=== PATIENT | female | born 1980 | race Caucasian/White ===

== ENCOUNTER 2020-09-02 18:01 | Inpatient (IN) | payer OTHER, SELFPAY ==
[2020-09-02 18:25] VITALS: BP 121/72; PULSE 114; TEMP 36.1
[2020-09-02] MEDS: Lurasidone HCl 80 MG TABLET PO (22:11)
[2020-09-02] MEDS: traZODone HCL 100 MG TABLET 200 MG PO (22:11)
--- NOTE | 2020-09-03 00:43 | PC.ADMIT ---
A 35 year old single female patient was [facility] 1820 following referral from [facility] and [facility] ED. Pt has no previous admissions here but reports numerous hospitalizations elsewhere. Pt lives in a [place] and it was reported pt has not been taking scheduled medications for several weeks and had been decompensating in the [place] since then presenting as acutely manic and psychotic in the ED assessment.. In [facility] ED pt expressed Branden Martinez has two aspects, on of an enemy and the other as a creator . Pt also asserted she is God's . Pt has reported hearing AH of the voice of Branden Martinez and spoke about incarnation and reincarnation. Pt spoke about spending time in her manic state on Facebook and spending lots of time writing and acquiring lots of followers including a number of celebrities. Pt rated anxiety 6/10, denied depression. Pt denies SI/HI and says can seek out staff. Pt reports distant history of self harm in form of cutting. Pt denied alcohol use and reported also very infrequent use of marijuana. JUAN and BAL were not done at [facility]. Pt was calm and cooperative during admission assessment. Pt does feel she needs to be on medications, I need one antipsychotic, one mood stabalizer, one med for anxiety plus my medical meds . Pt said she feels she is on too many meds and it makes her feel slowed down mentally. Medical issues include high blood pressure and high cholesterol. Pt was placed on 5 minute safety checks upon arrival but now is on 15 minute checks. Nurse to Nurse done, initial treatment plan done and admission orders obtained. Pt is resting in room at this time.
[2020-09-03] MEDS: Lithium Carbonate ER 450 MG TABLET.ER PO ×2 (06:16→14:18)
--- NOTE | 2020-09-03 07:07 | PM.EVENT ---
Event Note Date of Service: 09/02/20 Event Note: Attempted to see pt for H&P and pt was sleeping
[2020-09-03 09:23] VITALS: BP 121/72
[2020-09-03] MEDS: amLODIPine Besylate 10 MG TABLET PO (09:23)
[2020-09-03] MEDS: FLUoxetine HCl Oral Solution 20 MG/5 ML SOLUTION 10 MG PO (09:24)
[2020-09-03] MEDS: Nicotine Polacrilex 2 MG GUM 4 MG BUCCAL ×2 (11:55→18:48)
[2020-09-03 16:50] VITALS: BP 125/72; PULSE 97; TEMP 36.4
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
[2020-09-03] MEDS: metFORMIN HCl 500 MG TABLET PO (18:48)
[2020-09-03] MEDS: Melatonin 3 MG TABLET 9 MG PO (21:17)
[2020-09-03] MEDS: Ziprasidone 20 MG CAPSULE PO (21:18)
--- NOTE | 2020-09-03 22:25 | CONS_ITS ---
DATE OF SERVICE: 09/03/2020 REASON FOR CONSULTATION: Medical management for underlying hypertension and hyperlipidemia. HISTORY OF PRESENTING ILLNESS: This is a 40-year-old female patient, transferred from [facility] for inpatient psychiatric hospitalization due to auditory hallucination. The patient was found to be psychotic with acute paranoia and transferred to [facility]. The patient at the present time is resting comfortably, complaining of constipation despite using a high-fiber diet. She smokes 1 to 2 pack of cigarettes a day and requesting for Nicorette gum. Other than that, patient denies any acute symptoms of chest pain, shortness of breath, cough or sputum production. She denies any recent fever, chills. She denies any headache, lightheadedness, or dizziness. PAST MEDICAL HISTORY: Significant for hypertension and hyperlipidemia. SOCIAL HISTORY: The patient is currently on SSI. Previously, she worked in [email or web address] from 1999 to 2005. She smokes tobacco 1 to 2 packs a day. Denies alcohol use. PAST SURGICAL HISTORY: Status post removal of benign cyst from hand. FAMILY HISTORY: The patient is not aware and feels her family is deranged and she does not know much about their medical health. ALLERGIES: SHE HAS NO KNOWN DRUG ALLERGIES. MEDICATIONS ON ADMISSION: Tylenol 650 q.6 hours as needed, amlodipine 10 mg daily, bupropion 300 daily, carbamazepine 200 daily, fluoxetine 10 mg daily, Haldol 5 mg daily, hydroxyzine 25 mg at bedtime as needed and 50 mg daily p.r.n., ibuprofen 400 mg q.6 hour, lithium 450 mg b.i.d., magnesium p.o. daily, Nicorette Gum 4 mg q.2 hours, trazodone 200 mg at bedtime and lurasidone 80 mg by mouth at bedtime. 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 CVS: No chest pain. RESPIRATORY: No cough or sputum production. GI: Constipation. MUSCULOSKELETAL: Complaining of generalized stiffness and neck discomfort. PHYSICAL EXAMINATION: GENERAL: The patient is resting comfortably, does not appear to be in acute distress. VITAL SIGNS: BP 121/72. She is afebrile. Pulse is 100, respiratory rate is 14. HEENT: Pupils equal, round, and reactive to light and accommodation. NECK: Supple. No JVD. LUNGS: Clear to auscultation. HEART: Regular. ABDOMEN: Obese, soft, nontender. EXTREMITIES: Without edema. MUSCULOSKELETAL: No joint deformities. ASSESSMENT AND PLAN: This is a 40-year-old female patient, admitted to [facility] due to psychotic features and acute paranoia with past medical history of hypertension and hyperlipidemia. 1. Hypertension. The patient's blood pressure currently stable. We will recommend to continue amlodipine and follow blood pressure closely. 2. History of hyperlipidemia, not on statins. Recommended low fat diet. 3. Tobacco use disorder. The patient will be continued on Nicorette gum. Counseling has been done. 4. History of constipation. Advised to continue high-fiber diet. The patient has magnesium ordered p.r.n. We will add daily MiraLAX. 5. Generalized stiffness mostly due to sedentary lifestyle. Advised to do stretching exercises, p.r.n. Tylenol, hot showers. Thank you for allowing us to participate in the care of this patient. MD Dr. Fabricio Israel/PRATIK / [id number] MTDD
[2020-09-04 06:45] VITALS: BP 111/72; PULSE 65; RESP 18; TEMP 36.1; O2SAT 96
[2020-09-04 08:45] VITALS: BP 129/77; PULSE 73; RESP 16; TEMP 35.9; O2SAT 97
[2020-09-04] MEDS: Lithium Carbonate ER 450 MG TABLET.ER PO ×2 (08:58→13:57)
[2020-09-04 08:59] VITALS: BP 149/77; PULSE 73
[2020-09-04] MEDS: lisinopriL 2.5 MG TABLET PO (08:59)
[2020-09-04] MEDS: metFORMIN HCl 500 MG TABLET PO (08:59)
[2020-09-04] MEDS: Ziprasidone 20 MG CAPSULE PO (08:59)
--- NOTE | 2020-09-04 10:03 | HO.PSYCHPN ---
Subjective Subjective Date of Service: 09/04/20 Reason For Visit: Bi Polar Interim History: pt lying on bed upon approach; she remains so with eyes closed. Pt says she's tired; her speech is not pressured but she says i'm having thoughts and thoughts in my head and i want to scream and cry. Audit Mgr inquired and pt said thoughts consist of bad thoughts of things that happened to me, to my family, to the world... For help with this She agrees to increase in Ziprasidone to 40mg qhs and to bump up lithium to her home dose of 600mg BiD, but says she does not want too much medication because it will make her dull and hard to write and be creative. Pt says she plans to discharge early next week. Medication Compliance: Yes Side effects from medications: No Attending Groups: No Mental Status Exam Mental Status Exam Narrative: Pt is alert and oriented; behavior is cooperative, lying in bed with eyes closed; not in distress; dressed in casual attire with adequate hygiene; mood is described as tired and affect congruent; no eye contact; Speech is not pressured; normal volume and prosody; no psychomotor agitation present; thought process goal oriented; Thought content is on various things that have happened to her; no overt delusional content, paranoid ideations or grandiosity currently expressed; denies any SI/HI. AH present; Patients insight and judgment are impaired. Diagnostics Vital Signs (24Hr): Vital Signs - 24 hr 09/03/20 16:50 09/04/20 06:45 09/04/20 08:59 Temperature 97.6 F 96.9 F Pulse Rate 97 65 73 Respiratory Rate 18 Blood Pressure 125/72 111/72 149/77 H Pulse Oximetry 96 Labs Results: 09/05/20 08:57 09/05/20 08:57 Medications Medications Current Medications Generic Name Dose Route Start Last Admin Trade Name Freq PRN Reason Stop Dose Admin Acetaminophen 650 mg 09/02/20 18:16 Acetaminophen 325 Mg Tablet PO Q6H PRN Headache/Pain Mild Scale (1-3) Al Hydroxide/Mg Hydroxide 30 ml 09/02/20 18:16 Magnesium Hydrox/Alum Hydrox 30 Ml Oral.Susp PO Q6H PRN Heartburn/Nausea Clonazepam 1 mg 09/03/20 18:22 Clonazepam 1 Mg Tablet PO DAILY PRN Anxiety Lisinopril 2.5 mg 09/04/20 09:00 09/04/20 08:59 Lisinopril 2.5 Mg Tablet PO 2.5 mg DAILY CLAUDIA Administration Protocol [place] Carbonate 450 mg 09/03/20 06:00 09/04/20 08:58 [place] Carbonate Er 450 Mg Tablet.Er PO 450 mg 0600,1400 CLAUDIA Administration Magnesium Hydroxide 30 ml 09/02/20 18:16 Milk Of Magnesia 30 Ml Oral.Susp PO DAILY PRN Constipation Melatonin 9 mg 09/03/20 21:00 09/03/20 21:17 Melatonin 3 Mg Tablet PO 9 mg BEDTIME CLAUDIA Administration Metformin HCl 500 mg 09/03/20 18:30 09/04/20 08:59 Metformin Hcl 500 Mg Tablet PO 500 mg DAILY CLAUDIA Administration Nicotine Polacrilex 4 mg 09/03/20 10:49 09/03/20 18:48 Nicotine Polacrilex 2 Mg Gum BUCCAL 4 mg Q2H PRN Administration Nicotine Cravings Ziprasidone 20 mg 09/03/20 21:00 09/04/20 08:59 Ziprasidone 20 Mg Capsule PO 20 mg BID CLAUDIA Administration Allergies Allergies Allergy/AdvReac Type Severity Reaction Status Date / Time No Known Allergies Allergy Unverified 12/19/19 17:53 [No Known Allergies*] Assessment & Plan (1) Schizoaffective disorder, bipolar type: Status: Acute Code(s): F25.0 - Schizoaffective disorder, bipolar type (2) Chronic post-traumatic stress disorder (PTSD): Status: Acute Code(s): F43.12 - Post-traumatic stress disorder, chronic Assessment and Plan: Impression: Patient is a 40-year-old female with history of schizoaffective disorder, PTSD presents for dysregulated behaviors having stopped her medication. Patient is pleasant and friendly, but manic, with pressured speech, rambling about various things, some reference to spiritual things. Patient is willing to restart her ziprasidone and lithium, but not Depakote. pt agrees to increase in both Ziprasidone and lithium to stop racing thoughts Plan: The patient on CV, Q 15 minutes checks for safety Increase ziprasidone to 40mg qhs (keep AM dose at 20 mg b.i.d) Tiitrate Tol[place] to 600 mg b.i.d. which is her home dose, Will hold off restarting Depakote as patient currently refuses Patient also refuses Robbin Will order labs including hemoglobin A1c, lithium level, bun/cr hospitalist agreed Lisiniprol appropriate over amlodipine Patient educated on: diagnosis and medication risk/benefits Informed Consent: understands Greater than 50% of the session was spent on counseling and/or coordination of care Reason for contiued inpatient stay Substantial Risk for: rapid decompensation
[2020-09-04] MEDS: clonazePAM 1 MG TABLET PO (11:45)
[2020-09-04] MEDS: Nicotine Polacrilex 2 MG GUM 4 MG BUCCAL (13:57)
[2020-09-04 17:18] VITALS: BP 127/65; PULSE 86; RESP 18; TEMP 36.4; O2SAT 94
[2020-09-04] MEDS: Ziprasidone 40 MG CAPSULE PO (21:09)
[2020-09-04] MEDS: Melatonin 3 MG TABLET 9 MG PO (21:11)
[2020-09-05 08:59] VITALS: BP 132/72; PULSE 103
[2020-09-05] MEDS: Ziprasidone 20 MG CAPSULE PO (08:59)
[2020-09-05] MEDS: Lithium Carbonate ER 450 MG TABLET.ER PO (08:59)
[2020-09-05] MEDS: lisinopriL 2.5 MG TABLET PO (08:59)
[2020-09-05] MEDS: metFORMIN HCl 500 MG TABLET PO (08:59)
[2020-09-05 09:07] LABS: MANUAL DIFF FLAG NO
[2020-09-05 09:10] LABS: Basophils Absolute Auto 0.1 X10*3/uL (0.0-0.2); Basophils Percent Auto 0.8 % (0-2); Eosinophils Absolute Auto 0.6 X10*3/uL (0.0-0.4); Eosinophils Percent Auto 6.7 % (0-4); Hematocrit 45.7 % (37-47); Imm Gran Abs Auto 0.04 X10*3/uL (0.00-0.03); Imm Gran Pct Auto 0.5 % (0.0-0.4); Lymphocytes Absolute Auto 2.3 X10*3/uL (1.2-4.9); Lymphocytes Percent Auto 26.8 % (20-40); Mean Corpuscular HGB Conc 32.8 g/dl (31.0-35.0); Mean Corpuscular Hemoglobin 28.6 pg (27.0-33.0); Mean Corpuscular Volume 87.2 fL (80-98); Monocytes Absolute Auto 0.5 X10*3/uL (0.1-1.2); Monocytes Percent Auto 6.3 % (2-11); Neutrophils Absolute Auto 5.1 X10*3/uL (2.0-8.3); Neutrophils Percent Auto 58.9 % (45-73); Platelet Count 305 X10*3/uL (160-400); Red Blood Count 5.24 X10*6/uL (4.20-5.50); Red Cell Distribution Width 11.7 % (11.0-16.0); White Blood Count 8.6 X10*3/uL (4.8-10.8)
[2020-09-05 09:42] LABS: Alanine Aminotransferase 43 U/L (0-31); Albumin Level 3.9 g/dL (3.5-5.0); Alkaline Phosphatase 82 U/L (39-117); Anion Gap 14 (12-20); Aspartate Amino Transferase 25 U/L (5-31); Bilirubin Direct < 0.2 mg/dL (0.0-0.5); Bilirubin Total 0.4 mg/dL (0.0-1.0); Blood Urea Nitrogen 9 mg/dL (9-16); Carbon Dioxide 27 mmol/L (22-29); Chloride 103 mmol/L (96-108); Cholesterol 211 mg/dL; Estimated Glomerular Filt Rate > 60; HDL Cholesterol 34 mg/dL; LDL Cholesterol Calculated 133 mg/dl; Potassium 4.5 mmol/L (3.3-5.1); Sodium 139 mmol/L (135-145); Total Protein 6.7 g/dL (6.5-8.0); Triglycerides 224 mg/dL
[2020-09-05] MEDS: Nicotine Polacrilex 2 MG GUM 4 MG BUCCAL ×2 (10:43→18:02)
[2020-09-05 18:00] VITALS: BP 120/78; PULSE 84; RESP 16; TEMP 36.7; O2SAT 98
[2020-09-05] MEDS: Melatonin 3 MG TABLET 9 MG PO (20:34)
[2020-09-05] MEDS: clonazePAM 1 MG TABLET PO (20:35)
[2020-09-05] MEDS: Ziprasidone 40 MG CAPSULE PO (20:35)
[2020-09-05] MEDS: Lithium Carbonate ER 300 MG TABLET.ER 600 MG PO (20:35)
--- NOTE | 2020-09-05 21:07 | HO.PSYCHPN ---
Subjective Subjective Date of Service: 09/05/20 Reason For Visit: Bi Polar Interim History: Martir was labile and pressured. She did not understand why her Li was increased and states no one gets me Medication Compliance: Yes Side effects from medications: No Review of Systems Acute medical concerns: No Medical Review of Systems: unchanged Mental Status Exam Mental Status Exam Narrative: Pt is alert and oriented; behavior is cooperative, overly friendly; patient lying in bed; not in distress; dressed in casual attire with adequate hygiene; mood is described as great and affect expansive; eye contact appropriate; Speech is pressured but with volume and prosody; psychomotor agitation present as pt is pressured; thought process can be goal oriented but quickly becomes tangential; Thought content is on various things, her soul, her trips...not often relevant to topics; no overt delusional content, paranoid ideations or grandiosity currently expressed; denies any SI/HI. AH present; Patients insight and judgment are impaired. Diagnostics Vital Signs (24Hr): Vital Signs - 24 hr 09/05/20 08:59 Pulse Rate 103 H Blood Pressure 132/72 Labs Results: 09/05/20 08:57 09/05/20 08:57 Labs: Laboratory Results - last 48 hr 09/05/20 09/05/20 08:57 08:57 WBC 8.6 RBC 5.24 Hgb 15.0 Hct 45.7 MCV 87.2 MCH 28.6 MCHC 32.8 RDW 11.7 Plt Count 305 MPV 10.0 Immature Gran % (Auto) 0.5 H Neut % (Auto) 58.9 Lymph % (Auto) 26.8 [place] % (Auto) 6.3 Eos % (Auto) 6.7 H Baso % (Auto) 0.8 Lymph # (Auto) 2.3 [place] # (Auto) 0.5 Eos # (Auto) 0.6 H Baso # (Auto) 0.1 Abs Immat Gran (auto) 0.04 H Absolute Neuts (auto) 5.1 Absolute Nucleated RBC 0.000 Nucleated RBC % (auto) 0.0 Sodium 139 Potassium 4.5 Chloride 103 Carbon Dioxide 27 Anion Gap 14 BUN 9 Creatinine 0.81 Estim Creat Clear Calc TNP Estimated GFR > 60 Total Bilirubin 0.4 Direct Bilirubin < 0.2 AST 25 ALT 43 H Alkaline Phosphatase 82 Total Protein 6.7 Albumin 3.9 Triglycerides 224 Cholesterol 211 LDL Cholesterol, Calc 133 HDL Cholesterol 34 TSH 0.80 Medications Medications Current Medications Generic Name Dose Route Start Last Admin Trade Name Freq PRN Reason Stop Dose Admin Acetaminophen 650 mg 09/02/20 18:16 Acetaminophen 325 Mg Tablet PO Q6H PRN Headache/Pain Mild Scale (1-3) Al Hydroxide/Mg Hydroxide 30 ml 09/02/20 18:16 Magnesium Hydrox/Alum Hydrox 30 Ml Oral.Susp PO Q6H PRN Heartburn/Nausea Clonazepam 1 mg 09/04/20 16:35 09/05/20 20:35 Clonazepam 1 Mg Tablet PO 1 mg BID PRN Administration Anxiety Lisinopril 2.5 mg 09/04/20 09:00 09/05/20 08:59 Lisinopril 2.5 Mg Tablet PO 2.5 mg DAILY CLAUDIA Administration Protocol [place] Carbonate 600 mg 09/05/20 20:30 09/05/20 20:35 [place] Carbonate Er 300 Mg Tablet.Er PO 600 mg BID@0830,2030 CLAUDIA Administration Magnesium Hydroxide 30 ml 09/02/20 18:16 Milk Of Magnesia 30 Ml Oral.Susp PO DAILY PRN Constipation Melatonin 9 mg 09/03/20 21:00 09/05/20 20:34 Melatonin 3 Mg Tablet PO 9 mg BEDTIME CLAUDIA Administration Metformin HCl 500 mg 09/03/20 18:30 09/05/20 08:59 Metformin Hcl 500 Mg Tablet PO 500 mg DAILY CLAUDIA Administration Nicotine Polacrilex 4 mg 09/03/20 10:49 09/05/20 18:02 Nicotine Polacrilex 2 Mg Gum BUCCAL 4 mg Q2H PRN Administration Nicotine Cravings Ziprasidone 20 mg 09/05/20 09:00 09/05/20 08:59 Ziprasidone 20 Mg Capsule PO 20 mg DAILY CLAUDIA Administration Ziprasidone 40 mg 09/04/20 21:00 09/05/20 20:35 Ziprasidone 40 Mg Capsule PO 40 mg BEDTIME CLAUDIA Administration Allergies Allergies Allergy/AdvReac Type Severity Reaction Status Date / Time No Known Allergies Allergy Unverified 12/19/19 17:53 [No Known Allergies*] Assessment & Plan Assessment & Plan (1) Schizoaffective disorder, bipolar type: Status: Acute Code(s): F25.0 - Schizoaffective disorder, bipolar type (2) Chronic post-traumatic stress disorder (PTSD): Status: Acute Code(s): F43.12 - Post-traumatic stress disorder, chronic Assessment and Plan: Impression: Patient is a 40-year-old female with history of schizoaffective disorder, PTSD presents for dysregulated behaviors having stopped her medication. Patient is pleasant and friendly, but manic, with pressured speech, rambling about various things, some reference to spiritual things. Patient is willing to restart her ziprasidone and lithium, but not Depakote. Plan: The patient on CV, Q 15 minutes checks for safety Will restart ziprasidone at 20 mg b.i.d. and likely titrate Whilst continue lithium at 450 mg b.i.d. for now, I will likely titrate to 600 mg b.i.d. which is her home dose, Will hold off restarting Depakote as patient currently refuses Patient also refuses Cogentin Will order labs including hemoglobin A1c hospitalist wrote to restart amlodipine; however patients [facility] med list does not list amlodipine but lisinopril instead. given diabetic history will continue with lisinopril for now. Will reach out to hospitalist. No change to above plan Greater than 50% of the session was spent on counseling and/or coordination of care Patient educated on: diagnosis and medication risk/benefits Informed Consent: does not understand Reason for contiued inpatient stay Substantial Risk for: inability to function
[2020-09-06] MEDS: metFORMIN HCl 500 MG TABLET PO (08:10)
[2020-09-06] MEDS: Lithium Carbonate ER 300 MG TABLET.ER 600 MG PO ×2 (08:10→19:20)
[2020-09-06 08:11] VITALS: BP 137/72; PULSE 60
[2020-09-06] MEDS: lisinopriL 2.5 MG TABLET PO (08:11)
[2020-09-06] MEDS: Ziprasidone 20 MG CAPSULE PO (08:11)
[2020-09-06] MEDS: Nicotine Polacrilex 2 MG GUM 4 MG BUCCAL ×2 (10:15→19:20)
[2020-09-06 18:00] VITALS: BP 124/86; PULSE 80; RESP 16; TEMP 36.2; O2SAT 97
--- NOTE | 2020-09-06 18:56 | P.PNPSI_ITS ---
Subjective Subjective Date of Service: 09/06/20 Reason For Visit: Bi Polar Interim History: Martir was notably calmer and less labile today. She was out on the unit and interactive with her peers. There was no behavioral dyscontrol Medication Compliance: Yes Side effects from medications: No Review of Systems Acute medical concerns: No Medical Review of Systems: unchanged Mental Status Exam Mental Status Exam Narrative: Pt is alert and oriented; behavior is cooperative, overly friendly; patient lying in bed; not in distress; dressed in casual attire with adequate hygiene; mood is described as great and affect expansive; eye contact appropriate; Speech is pressured but with volume and prosody; psychomotor agitation present as pt is pressured; thought process can be goal oriented but quickly becomes tangential; Thought content is on various things, her soul, her trips...not often relevant to topics; no overt delusional content, paranoid ideations or grandiosity currently expressed; denies any SI/HI. AH present; Patients insight and judgment are impaired. Diagnostics Vital Signs (24Hr): Vital Signs - 24 hr 09/06/20 08:11 Pulse Rate 60 Blood Pressure 137/72 Labs Results: 09/05/20 08:57 09/05/20 08:57 Labs: Laboratory Results - last 48 hr 09/05/20 09/05/20 08:57 08:57 WBC 8.6 RBC 5.24 Hgb 15.0 Hct 45.7 MCV 87.2 MCH 28.6 MCHC 32.8 RDW 11.7 Plt Count 305 MPV 10.0 Immature Gran % (Auto) 0.5 H Neut % (Auto) 58.9 Lymph % (Auto) 26.8 [place] % (Auto) 6.3 Eos % (Auto) 6.7 H Baso % (Auto) 0.8 Lymph # (Auto) 2.3 [place] # (Auto) 0.5 Eos # (Auto) 0.6 H Baso # (Auto) 0.1 Abs Immat Gran (auto) 0.04 H Absolute Neuts (auto) 5.1 Absolute Nucleated RBC 0.000 Nucleated RBC % (auto) 0.0 Sodium 139 Potassium 4.5 Chloride 103 Carbon Dioxide 27 Anion Gap 14 BUN 9 Creatinine 0.81 Estim Creat Clear Calc TNP Estimated GFR > 60 Total Bilirubin 0.4 Direct Bilirubin < 0.2 AST 25 ALT 43 H Alkaline Phosphatase 82 Total Protein 6.7 Albumin 3.9 Triglycerides 224 Cholesterol 211 LDL Cholesterol, Calc 133 HDL Cholesterol 34 TSH 0.80 Medications Medications Current Medications Generic Name Dose Route Start Last Admin Trade Name Freq PRN Reason Stop Dose Admin Acetaminophen 650 mg 09/02/20 18:16 Acetaminophen 325 Mg Tablet PO Q6H PRN Headache/Pain Mild Scale (1-3) Al Hydroxide/Mg Hydroxide 30 ml 09/02/20 18:16 Magnesium Hydrox/Alum Hydrox 30 Ml Oral.Susp PO Q6H PRN Heartburn/Nausea Clonazepam 1 mg 09/04/20 16:35 09/05/20 20:35 Clonazepam 1 Mg Tablet PO 1 mg BID PRN Administration Anxiety Lisinopril 2.5 mg 09/04/20 09:00 09/06/20 08:11 Lisinopril 2.5 Mg Tablet PO 2.5 mg DAILY CLAUDIA Administration Protocol [place] Carbonate 600 mg 09/05/20 20:30 09/06/20 08:10 [place] Carbonate Er 300 Mg Tablet.Er PO 600 mg BID@0830,2030 CLAUDIA Administration Magnesium Hydroxide 30 ml 09/02/20 18:16 Milk Of Magnesia 30 Ml Oral.Susp PO DAILY PRN Constipation Melatonin 9 mg 09/03/20 21:00 09/05/20 20:34 Melatonin 3 Mg Tablet PO 9 mg BEDTIME CLAUDIA Administration Metformin HCl 500 mg 09/03/20 18:30 09/06/20 08:10 Metformin Hcl 500 Mg Tablet PO 500 mg DAILY CLAUDIA Administration Nicotine Polacrilex 4 mg 09/03/20 10:49 09/06/20 10:15 Nicotine Polacrilex 2 Mg Gum BUCCAL 4 mg Q2H PRN Administration Nicotine Cravings Ziprasidone 20 mg 09/05/20 09:00 09/06/20 08:11 Ziprasidone 20 Mg Capsule PO 20 mg DAILY CLAUDIA Administration Ziprasidone 40 mg 09/04/20 21:00 09/05/20 20:35 Ziprasidone 40 Mg Capsule PO 40 mg BEDTIME CLAUDIA Administration Allergies Allergies Allergy/AdvReac Type Severity Reaction Status Date / Time No Known Allergies Allergy Unverified 12/19/19 17:53 [No Known Allergies*] Assessment & Plan Assessment & Plan (1) Schizoaffective disorder, bipolar type: Status: Acute Code(s): F25.0 - Schizoaffective disorder, bipolar type (2) Chronic post-traumatic stress disorder (PTSD): Status: Acute Code(s): F43.12 - Post-traumatic stress disorder, chronic Assessment and Plan: Impression: Patient is a 40-year-old female with history of schizoaffective disorder, PTSD presents for dysregulated behaviors having stopped her medication. Patient is pleasant and friendly, but manic, with pressured speech, rambling about various things, some reference to spiritual things. Patient is willing to restart her ziprasidone and lithium, but not Depakote. Plan: The patient on CV, Q 15 minutes checks for safety Will restart ziprasidone at 20 mg b.i.d. and likely titrate Whilst continue lithium at 450 mg b.i.d. for now, I will likely titrate to 600 mg b.i.d. which is her home dose, Will hold off restarting Depakote as patient currently refuses Patient also refuses Cogentin Will order labs including hemoglobin A1c hospitalist wrote to restart amlodipine; however patients snf med list does not list amlodipine but lisinopril instead. given diabetic history will continue with lisinopril for now. Will reach out to hospitalist. No change to above plan Greater than 50% of the session was spent on counseling and/or coordination of care Patient educated on: diagnosis and medication risk/benefits Informed Consent: further education needed Reason for contiued inpatient stay Substantial Risk for: inability to function and rapid decompensation
[2020-09-06] MEDS: Ziprasidone 40 MG CAPSULE PO (20:33)
[2020-09-06] MEDS: Melatonin 3 MG TABLET 9 MG PO (20:34)
[2020-09-07] MEDS: clonazePAM 1 MG TABLET PO (02:22)
[2020-09-07] MEDS: Ziprasidone 20 MG CAPSULE PO (08:48)
[2020-09-07] MEDS: metFORMIN HCl 500 MG TABLET PO (08:48)
[2020-09-07] MEDS: Lithium Carbonate ER 300 MG TABLET.ER 600 MG PO ×2 (08:48→21:32)
--- NOTE | 2020-09-07 10:52 | HO.PSYCHPN ---
Subjective Subjective Date of Service: 09/07/20 Reason For Visit: Bi Polar Subjective Notes: 3 Day Interim History: pt says that she is getting ready for discharge and that the unit has been particularly triggering for her given it's high acquity; she says she has AH but has for 15 years and it's god's voice and welcomed. Pt denies any SI. She says she feels less charged then she was on admission. Mental Status Exam Mental Status Exam Narrative: Pt is alert and oriented; behavior is cooperative, a little animated, walking down the watters; not in distress; dressed in casual attire with adequate hygiene; mood is described as good and affect expansive; eye contact appropriate; Speech is mildly pressured but with normal volume and prosody; some psychomotor agitation present; thought process goal oriented sometimes circumstantial; Thought content on discharge; mostly relevant to topics; some odd, magical type thinking but no overt delusional content, paranoid ideations or grandiosity currently expressed; denies any SI/HI. AH present; Patients insight and judgment are impaired. Diagnostics Vital Signs (24Hr): Vital Signs - 24 hr 09/06/20 18:00 Temperature 97.1 F Pulse Rate 80 Respiratory Rate 16 Blood Pressure 124/86 Pulse Oximetry 97 Labs Results: 09/05/20 08:57 09/05/20 08:57 Medications Medications Current Medications Generic Name Dose Route Start Last Admin Trade Name Freq PRN Reason Stop Dose Admin Acetaminophen 650 mg 09/02/20 18:16 Acetaminophen 325 Mg Tablet PO Q6H PRN Headache/Pain Mild Scale (1-3) Al Hydroxide/Mg Hydroxide 30 ml 09/02/20 18:16 Magnesium Hydrox/Alum Hydrox 30 Ml Oral.Susp PO Q6H PRN Heartburn/Nausea Clonazepam 1 mg 09/04/20 16:35 09/07/20 02:22 Clonazepam 1 Mg Tablet PO 1 mg BID PRN Administration Anxiety Lisinopril 2.5 mg 09/04/20 09:00 09/07/20 08:52 Lisinopril 2.5 Mg Tablet PO Not Given DAILY [facility] Protocol [place] Carbonate 600 mg 09/05/20 20:30 09/07/20 08:48 [place] Carbonate Er 300 Mg Tablet.Er PO 600 mg BID@0830,2030 CLAUDIA Administration Magnesium Hydroxide 30 ml 09/02/20 18:16 Milk Of Magnesia 30 Ml Oral.Susp PO DAILY PRN Constipation Melatonin 9 mg 09/03/20 21:00 09/06/20 20:34 Melatonin 3 Mg Tablet PO 9 mg BEDTIME CLAUDIA Administration Metformin HCl 500 mg 09/03/20 18:30 09/07/20 08:48 Metformin Hcl 500 Mg Tablet PO 500 mg DAILY CLAUDIA Administration Nicotine Polacrilex 4 mg 09/03/20 10:49 09/06/20 19:20 Nicotine Polacrilex 2 Mg Gum BUCCAL 4 mg Q2H PRN Administration Nicotine Cravings Ziprasidone 20 mg 09/05/20 09:00 09/07/20 08:48 Ziprasidone 20 Mg Capsule PO 20 mg DAILY CLAUDIA Administration Ziprasidone 40 mg 09/04/20 21:00 09/06/20 20:33 Ziprasidone 40 Mg Capsule PO 40 mg BEDTIME CLAUDIA Administration Allergies Allergies Allergy/AdvReac Type Severity Reaction Status Date / Time No Known Allergies Allergy Unverified 12/19/19 17:53 [No Known Allergies*] Assessment & Plan Assessment & Plan (1) Schizoaffective disorder, bipolar type: Status: Acute Code(s): F25.0 - Schizoaffective disorder, bipolar type (2) Chronic post-traumatic stress disorder (PTSD): Status: Acute Code(s): F43.12 - Post-traumatic stress disorder, chronic Assessment and Plan: Impression: Patient is a 40-year-old female with history of schizoaffective disorder, PTSD presents for dysregulated behaviors having stopped her medication. Patient is pleasant and friendly, but manic, with pressured speech, rambling about various things, some reference to spiritual things. Patient is willing to restart her ziprasidone and lithium, but not Depakote. pt stabilizing; she is mildly hypomanic, but approaching baseline. pt has signed 3 day due on 09/09/20; she will not wait longer to get labs for lithium level, but says she'll go to outpt clinic Plan: The patient on CV, Q 15 minutes checks for safety ziprasidone at 20 mg in AM and 50mg at bed; lithium 600 mg b.i.d. which is her home dose, Will hold off restarting Depakote as patient currently refuses Patient also refuses [place] Will order labs including hemoglobin A1c hospitalist wrote to restart amlodipine; however patients shelter med list does not list amlodipine but lisinopril instead. given diabetic history will continue with lisinopril for now. Will reach out to hospitalist. No change to above plan Greater than 50% of the session was spent on counseling and/or coordination of care Reason for contiued inpatient stay Substantial Risk for: rapid decompensation
[2020-09-07] MEDS: Milk of Magnesia 30 ML ORAL.SUSP PO (13:12)
[2020-09-07] MEDS: Nicotine Polacrilex 2 MG GUM 4 MG BUCCAL (14:34)
[2020-09-07 21:30] VITALS: BP 138/78; PULSE 98; TEMP 36.3
[2020-09-07] MEDS: Ziprasidone 40 MG CAPSULE PO (21:31)
[2020-09-07] MEDS: Melatonin 3 MG TABLET 9 MG PO (21:32)
[2020-09-08 10:16] VITALS: BP 104/56; PULSE 72
[2020-09-08] MEDS: Lithium Carbonate ER 300 MG TABLET.ER 600 MG PO ×2 (10:16→21:28)
[2020-09-08] MEDS: lisinopriL 2.5 MG TABLET PO (10:16)
[2020-09-08] MEDS: Ziprasidone 20 MG CAPSULE PO (10:17)
[2020-09-08] MEDS: metFORMIN HCl 500 MG TABLET PO (10:17)
[2020-09-08 11:00] VITALS: BP 104/56; PULSE 72; RESP 16; TEMP 36.3; O2SAT 97
--- NOTE | 2020-09-08 17:31 | HO.PSYCHPN ---
Subjective Subjective Date of Service: 09/08/20 Reason For Visit: Bi Polar Interim History: Patient lying calmly in bed on approach. She says maribel Mukherjee. She is planning to discharge tomorrow. She says that her mood is good and she is sleeping through the night mostly. She asks why casualty underwriter wants to the draw labs since her levels have been the same for the past 15 years(patient knows and quotes the therapeutic window for lithium). [employer] Inspector explained the reasoning to which patient said that that sketchy since her levels never change. She also then says she has magical blood since she is connected to a [employer] that uses [employer] and that maybe her blood is special. She is somewhat ambivalent on whether she will come back for labs following discharge. Otherwise no complaints Medication Compliance: Yes Side effects from medications: No Attending Groups: No Mental Status Exam Mental Status Exam Narrative: Pt is alert and oriented; behavior is cooperative, lying calmly in bed, dressed in casual attire with adequate hygiene; mood is described as good and affect calm; eye contact appropriate; Speech is mildly pressured but with normal volume and prosody; no psychomotor agitation present; thought process goal oriented and somewhat circumstantial; Thought content on discharge; mostly relevant to topics; some odd, magical type thinking and waxing of delusional content and grandiosity; denies any SI/HI. AH present; Patients insight and judgment are impaired. Diagnostics Vital Signs (24Hr): Vital Signs - 24 hr 09/07/20 21:30 09/08/20 10:16 09/08/20 11:00 Temperature 97.3 F 97.4 F Pulse Rate 98 72 72 Respiratory Rate 16 Blood Pressure 138/78 104/56 L 104/56 L Pulse Oximetry 97 Labs Results: 09/05/20 08:57 09/05/20 08:57 Medications Medications Current Medications Generic Name Dose Route Start Last Admin Trade Name Freq PRN Reason Stop Dose Admin Acetaminophen 650 mg 09/02/20 18:16 Acetaminophen 325 Mg Tablet PO Q6H PRN Headache/Pain Mild Scale (1-3) Al Hydroxide/Mg Hydroxide 30 ml 09/02/20 18:16 Magnesium Hydrox/Alum Hydrox 30 Ml Oral.Susp PO Q6H PRN Heartburn/Nausea Clonazepam 1 mg 09/04/20 16:35 09/07/20 02:22 Clonazepam 1 Mg Tablet PO 1 mg BID PRN Administration Anxiety Lisinopril 2.5 mg 09/04/20 09:00 09/08/20 10:16 Lisinopril 2.5 Mg Tablet PO 2.5 mg DAILY CLAUDIA Administration Protocol [place] Carbonate 600 mg 09/05/20 20:30 09/08/20 10:16 [place] Carbonate Er 300 Mg Tablet.Er PO 600 mg BID@0830,2030 CLAUDIA Administration Magnesium Hydroxide 30 ml 09/02/20 18:16 09/07/20 13:12 Milk Of Magnesia 30 Ml Oral.Susp PO 30 ml DAILY PRN Administration Constipation Melatonin 9 mg 09/03/20 21:00 09/07/20 21:32 Melatonin 3 Mg Tablet PO 9 mg BEDTIME CLAUDIA Administration Metformin HCl 500 mg 09/03/20 18:30 09/08/20 10:17 Metformin Hcl 500 Mg Tablet PO 500 mg DAILY CLAUDIA Administration Nicotine Polacrilex 4 mg 09/03/20 10:49 09/07/20 14:34 Nicotine Polacrilex 2 Mg Gum BUCCAL 4 mg Q2H PRN Administration Nicotine Cravings Ziprasidone 20 mg 09/05/20 09:00 09/08/20 10:17 Ziprasidone 20 Mg Capsule PO 20 mg DAILY CLAUDIA Administration Ziprasidone 40 mg 09/04/20 21:00 09/07/20 21:31 Ziprasidone 40 Mg Capsule PO 40 mg BEDTIME CLAUDIA Administration Allergies Allergies Allergy/AdvReac Type Severity Reaction Status Date / Time No Known Allergies Allergy Unverified 12/19/19 17:53 [No Known Allergies*] Assessment & Plan Assessment & Plan (1) Schizoaffective disorder, bipolar type: Status: Acute Code(s): F25.0 - Schizoaffective disorder, bipolar type (2) Chronic post-traumatic stress disorder (PTSD): Status: Acute Code(s): F43.12 - Post-traumatic stress disorder, chronic Assessment and Plan: Impression: Patient is a 40-year-old female with history of schizoaffective disorder, PTSD presents for dysregulated behaviors having stopped her medication. Patient is pleasant and friendly, but manic, with pressured speech, rambling about various things, some reference to spiritual things. Patient is willing to restart her ziprasidone and lithium, but not Depakote. Restarted ziprasidone and lithium pt stabilizing; she is mildly hypomanic, but approaching baseline. pt has signed 3 day due on 09/09/20; she will not wait longer to get labs for lithium level, but says she'll go to outpt clinic [employer] Inspector knows patient from [place] admission of over a year and patient is close to if not at baseline Patient is not in imminent risk of harm to self or others and does not meet criteria for involuntary commitment. Her 3 days up tomorrow and patient will be discharged back to [facility] Plan: The patient on CV, Q 15 minutes checks for safety ziprasidone at 20 mg in AM and 40mg at bed; lithium 600 mg b.i.d. which is her home dose, Will hold off restarting Depakote as patient currently refuses Patient also refuses Cogdevyn Will order labs including hemoglobin A1c hospitalist wrote to restart amlodipine; however patients long term med list does not list amlodipine but lisinopril instead. given diabetic history will continue with lisinopril for now. Will reach out to hospitalist. No change to above plan Greater than 50% of the session was spent on counseling and/or coordination of care Reason for contiued inpatient stay Substantial Risk for: med/psych decompensation
[2020-09-08 18:00] VITALS: BP 109/55; PULSE 81; TEMP 36.7
[2020-09-08] MEDS: Melatonin 3 MG TABLET 9 MG PO (21:28)
[2020-09-08] MEDS: Ziprasidone 40 MG CAPSULE PO (21:28)
[2020-09-09] MEDS: Nicotine Polacrilex 2 MG GUM 4 MG BUCCAL (00:45)
[2020-09-09 08:45] VITALS: BP 131/81; PULSE 69
[2020-09-09 08:57] VITALS: BP 131/81; PULSE 69
[2020-09-09] MEDS: metFORMIN HCl 500 MG TABLET PO (08:57)
[2020-09-09] MEDS: lisinopriL 2.5 MG TABLET PO (08:57)
[2020-09-09] MEDS: Ziprasidone 20 MG CAPSULE PO (08:57)
[2020-09-09] MEDS: Lithium Carbonate ER 300 MG TABLET.ER 600 MG PO (08:57)
--- NOTE | 2020-09-09 10:14 | P.DS_ITS ---
DS: Providers Provider Date of Service: 09/09/20 Date of admission: 09/02/20 18:01 Date of discharge: 09/09/20 Primary care physician: Unknown Physician Admitting clinician: Festus Francois Consults: 09/02/20 18:16 Consult to Hospitalist Routine Consulting Provider: Hospitalist Reason For Exam: Transfer from [facility] Attending physician on discharge: Festus Francois DS: Diagnosis Discharge Diagnosis (1) Schizoaffective disorder, bipolar type: Status: Chronic (2) Chronic post-traumatic stress disorder (PTSD): Status: Chronic Discharge Plan Discharge Patient Disposition: Xfer Other Discharge Diagnosis: Schizoaffective disorder, bipolar type Referrals: Dr. Coleman (psychiatry) [Other] - 09/24/20 11:30 am (This appointment is in- person) Dianne Hoskins MD [Physician] - 09/15/20 9:30 am (in office) Discharge Medications: New metformin 500 mg Tablet 500 mg PO DAILY 30 Days Qty: 30 RF: 0 clonazepam 1 mg Tablet 1 mg PO BID PRN (Reason: Anxiety) 30 Days Qty: 60 RF: 0 lithium carbonate 300 mg Tablet Extended Release 600 mg PO BID@0830,2029 30 Days Qty: 120 RF: 0 melatonin 3 mg Tablet 9 mg PO BEDTIME 30 Days Qty: 90 RF: 0 ziprasidone HCl 20 mg Capsule See Rx Instructions .ROUTE .COMPLEX 30 Days Qty: 90 RF: 0 lisinopril 2.5 mg Tablet 2.5 mg PO DAILY 30 Days Qty: 30 RF: 0 nicotine (polacrilex) 2 mg Gum 4 mg buccal Q2H PRN (Reason: Nicotine Cravings) 30 Days Qty: 50 RF: 0 benztropine 1 mg tablet 1 mg PO DAILY PRN (Reason: extrapyramidal effects/symptoms) 30 Days Qty: 30 RF: 0 Discharge Orders: Discharge Order (Routine); Ordered 09/09/20 Ordered By: Festus Francois Diet: diabetic diet Activity on Discharge: As tolerated Stand Alone Forms: Patient Portal Discharge page Other Ambulatory Orders: Blood Urea Nitrogen (Routine) Timeframe: 20200911 Facility: [facility] - Location: Laboratory Ordered By: Festus Francois Creatinine (Routine) Timeframe: 20200911 Facility: [facility] - Location: Laboratory Ordered By: Festus Francois Oakman (Routine) Timeframe: 20200911 Facility: [facility] - Location: Laboratory Ordered By: Festus Francois Electrolytes (Routine) Timeframe: 20200911 Facility: [facility] - Location: Laboratory Ordered By: Festus Francois Care Plan Goals: Maintain mood and safe behaviors Take medications as prescribed Practice coping skills Continue with outpatient providers and reach out to them as needed Follow up with getting Labs drawn on 09/11/20 Health Concerns: Mood instability and behaviors manic episodes history of hypertension Plan of Treatment: Follow up with your PCP and outpatient psychiatrist regarding above concerns Take medications as prescribed Assessment: Risk assessment at time of discharge: Patient has been observed closely by nursing and unit staff throughout admission; patient has not engaged in any behaviors that suggest dangerousness to self or others and has demonstrated appropriate behaviors and impulse control. Patient was interviewed prior to discharge and found to be fully oriented and without any SI or HI. Patient has insight and demonstrates good judgment in terms of wanting to pursue treatment. Patient is not in imminent risk of harm to self or others and has a safety plan that includes presenting to the closest ER or calling 911 if feeling unsafe. Mental Status Exam Mental Status Exam Narrative: Pt is alert and oriented; behavior is cooperative; dressed in casual attire with adequate hygiene; mood is described as good and affect calm and congruent; eye contact appropriate; Speech is mildly pressured but with normal volume and prosody; no psychomotor agitation present; thought process goal oriented and linear but prone to being somewhat circumstantial; Thought content on discharge and continuing to work on [her]self; mostly relevant to topics discussed; some odd, magical type and/or delusional thinking; she denies any SI/HI. AH intermittent (chronic); Patients insight and judgment are fair. Data Data Completed and Pending Completed studies during hospitalization [Text1]: 09/05/20 09/05/20 08:57 08:57 WBC 8.6 RBC 5.24 Hgb 15.0 Hct 45.7 MCV 87.2 MCH 28.6 MCHC 32.8 RDW 11.7 Plt Count 305 MPV 10.0 Immature Gran % (Auto) 0.5 H Neut % (Auto) 58.9 Lymph % (Auto) 26.8 Wood % (Auto) 6.3 Eos % (Auto) 6.7 H Baso % (Auto) 0.8 Lymph # (Auto) 2.3 Wood # (Auto) 0.5 Eos # (Auto) 0.6 H Baso # (Auto) 0.1 Abs Immat Gran (auto) 0.04 H Absolute Neuts (auto) 5.1 Absolute Nucleated RBC 0.000 Nucleated RBC % (auto) 0.0 Sodium 139 Potassium 4.5 Chloride 103 Carbon Dioxide 27 Anion Gap 14 BUN 9 Creatinine 0.81 Estim Creat Clear Calc TNP Estimated GFR > 60 Total Bilirubin 0.4 Direct Bilirubin < 0.2 AST 25 ALT 43 H Alkaline Phosphatase 82 Total Protein 6.7 Albumin 3.9 Triglycerides 224 Cholesterol 211 LDL Cholesterol, Calc 133 HDL Cholesterol 34 TSH 0.80 DS: Summary Hospital Course Hospital Course: Patient is a 40-year-old female with history of schizoaffective disorder, PTSD who presents for dysregulated behaviors having stopped her medication. On admission, patient is pleasant and friendly, but manic, with pressured speech and rambling about various things. She denied any SI or HI but endorses intermittent AH which she says have been there for years and don't bother her [facility]. Patient was willing to restart her medication of ziprasidone, though at a lower dose, and lithium. She was not willing to restart Depakote or Cogentin; hospitalist agreed to continuing lisinopril given diabetic profile, despite being on lithium since patient has tolerated this combination for years. Patient is very aware of her medications including doses and side effects which video game script writer reviewed; she said she does not want Depakote because it makes her hair fall out; she also wanted to make sure that her doses were not too high so that she could continue to think clearly as she wants to journal about her feelings; to that end, patient was willing to increase ziprasidone to 40 mg at bedtime but was adamant that morning dose stay at only 20 mg. Patient's manic symptoms subsided and she was able to sleep through the night. She remained with mildly pressured speech and some magical and delusional thinking, however video game script writer knows this patient from her long-term stay at [facility] and at baseline, she is mildly hypomanic with intermittent AH. Patient put in a 3 day notice. Time Study Technician asked if she would stay for follow-up labs as her lithium dose was titrated to her home dose of 600 mg b.i.d., however patient who knows the therapeutic window for lithium, said that her lithium levels have always been within range and her lab work has never varied for the past 15 years; she thus saw no point in staying on the unit longer, reiterating that she feels overall stable and will remain on her medications and citing the high acuity on the unit as triggering her PTSD. She likes her skilled nursing at the ?[facility] ?and has a good rapport with her outpatient psychiatrist Dr. Coleman. While she was not willing to remain on the unit for lab work, she did agree to drive to get lab work done later this week. On day of discharge patient is in a good mood, with bright affect, mildly hypomanic which is at or near baseline, without any SI or HI and untroubled by intermittent auditory hallucinations. She is future focused and looking forward to returning to her skilled nursing. She is not in imminent risk of harm to self or harm to others and does not rise to the level of involuntary commitment. She has strong community support and lives in a skilled nursing that manages her medication. Patient's request for discharge was honored. Although patient is off her Depakote, she may be able to remain in the community, stable enough Patient refused to get back on Cogentin, however video game script writer sent a script for it as a p.r.n. in case the EPS symptoms resurface Patient given lab orders for blood work for lithium level, BUN/creatinine and electrolytes which she said she would follow up on this Monday Time spent discussing smoking cessation with patient: 3 to 10 minutes Status at Discharge Cognitive/behavioral status at discharge: Risk assessment at time of discharge: Patient has been observed closely by nursing and unit staff throughout admission; patient has not engaged in any behaviors that suggest dangerousness to self or others and has demonstrated appropriate behaviors and impulse control. Patient was interviewed prior to discharge and found to be fully oriented and without any SI or HI. Patient has insight and demonstrates good judgment in terms of wanting to pursue treatment. Patient is not in imminent risk of harm to self or others and has a safety plan that includes presenting to the closest ER or calling 911 if feeling unsafe. Functional status at discharge: independent ambulation Overall status at discharge: patient is back to baseline (or nearly) Time Spent with Patient Time attestation: Total time spent providing and/or coordinating discharge services: Time spent: Greater than 30 minutes
--- NOTE | 2020-09-09 11:38 | PC.NURSE ---
PT IS AWARE AND READY FOR DISCHARGE. PT IS LESS LABILE. SHE HAS BEEN ISOLATIVE TO HER ROOM AND NOT ATTENDING GROUPS. PT HAS BEEN SHOWERING AND CHANGING HER CLOTHES. SHE IS EATING AND SLEEPING ADEQUATELY. SHE HAS BEEN MEDICATION COMPLIANT. PT IS SOCIAL WITH HER ROOMMATE AND STAFF. PT DENIES DEPRESSION AND ANXIETY. SHE DENIES ANY URGES TO HARM HERSELF OR OTHERS. PT CAN SEEK OUT STAFF IF NEEDED BUT FEELS SAFE ON THE UNIT. PT HAS BEEN UTILIZING FRESH AIR BREAKS. PT VERBALIZES THAT SHE FEELS LIKE HER MEDICATIONS ARE WORKING. PTS PAPERWORK WILL BE FAXED TO PCP PER PROTOCOL. HER APPOINTMENTS AND LABS HAVE BEEN SCHEDULED.
== END 2020-09-09 12:55 | disposition other institution (70) | DRG 885 ==
PROVIDERS: Admitting Provider Psychiatry & Neurology Psychiatry; Visit Provider Psychiatry & Neurology Psychiatry
DX: F25.0 Schizoaffective disorder, bipolar type (principal); K59.00 Constipation, unspecified; F43.12 Post-traumatic stress disorder, chronic; I10 Essential (primary) hypertension; E78.5 Hyperlipidemia, unspecified; Z79.84 Long term (current) use of oral hypoglycemic drugs; Z87.891 Personal history of nicotine dependence; Z79.899 Other long term (current) drug therapy
CPT/HCPCS: 36415; 80051; 80061; 80076; 82565; 84443; 84520; 85025

== ENCOUNTER 2020-09-20 18:07 | Emergency (ER) | payer OTHER, MEDICARE, SELFPAY ==
[2020-09-20 18:22] VITALS: BP 147/81; PULSE 119; RESP 16; TEMP 37.2; O2SAT 95; BMI 39.5
--- NOTE | 2020-09-20 18:41 | ED_ITS ---
HPI - Psych General Chief Complaint: Psychiatric Symptoms Stated Complaint: BEHAVIRAL/VERBAL ALTIRCATION AT SNF Time Seen by Provider: 09/20/20 18:15 Source: patient and EMS Mode of arrival: EMS Limitations: no limitations History of Present Illness HPI Narrative: Patient comes to emergency room after being in a verbal altercation at her senior care. Patient states that she got into an argument with a 21-year-old at the senior care, patient states that she was trying to verbally intimidate the other resident, but there was no physical altercation. Patient states that there were no threats, no SI or HI statements. EMS confirms the story. Patient denies suicidal or homicidal ideation Related Data Previous Rx's Medication Instructions Recorded benztropine 1 mg PO DAILY PRN 30 Days #30 tab 09/09/20 clonazepam 1 mg PO BID PRN 30 Days #60 tab 09/09/20 lisinopril 2.5 mg PO DAILY 30 Days #30 tab 09/09/20 lithium carbonate 600 mg PO BID@0830,2030 30 Days 09/09/20 #120 tab melatonin 9 mg PO BEDTIME 30 Days #90 tab 09/09/20 metformin 500 mg PO DAILY 30 Days #30 tab 09/09/20 nicotine (polacrilex) 4 mg BUCCAL Q2H PRN 30 Days #50 ea 09/09/20 ziprasidone HCl See Rx Instructions .ROUTE 09/09/20 .COMPLEX 30 Days #90 cap Allergies Allergy/AdvReac Type Severity Reaction Status Date / Time No Known Allergies Allergy Unverified 12/19/19 17:53 [No Known Allergies*] Review of Systems Review of Systems: Constitutional : No Weight loss, No Fever, No Chills, No Night Sweats, No Fatigue, No Malaise ENT/Mouth : No Hearing loss, No Ear Pain, No Nasal Congestion, No Sinus Pain, No Hoarseness, No sore throat, No Rhinorrhea, No Swallowing Difficulty Eyes: No Eye Pain, No Swelling, No Redness, No Foreign Body, No Discharge, No Vision Changes Cardiovascular : No Chest Pain, No SOB, No Dyspnea on Exertion, No Orthopnea, No Edema, No Palpitations Respiratory : No Cough, No Sputum, No Wheezing, No Smoke Exposure, No Dyspnea Gastrointestinal : No Nausea, No Vomiting, No Diarrhea, No Constipation, No abdominal Pain, No Hematochezia, No Melena Genitourinary : no irregular bleeding, No Dysuria, No Urinary Frequency, No Hematuria, No Urinary Incontinence, No Urgency, No Flank Pain, No Urinary Flow Changes, No Hesitancy Musculoskeletal : No joint pain, No Myalgias, No Joint Swelling Skin : No Skin Lesions, No rash Neuro : No Weakness, No Numbness, No Paresthesias, No Loss of Consciousness, No Dizziness, No Headache Psych : No Anxiety/Panic, No Depression, No SI/HI Heme/Lymph: No Bruising, No Bleeding,No Lymphadenopathy Endocrine : No Polyuria, No Polydipsia, No Temperature Intolerance [facility] Past Medical History Medical History Chronic post-traumatic stress disorder (PTSD) Schizoaffective disorder, bipolar type Social History Social History Household Members: Other Household Members Other:: senior care, 3 other cliets Housing: House Do you presently have visiting nurse or other home services: No Patient Tobacco Use Status: Current everyday Tobacco user Tobacco use type: Cigarette e-Cigarette/Vaping Use: Former Use Second Hand Smoke Exposure: Yes Substance Use Type: Marijuana service: Yes Sexual orientation: Did not discuss Physical Exam Vital Signs: Vital Signs: Last Vital Signs Temp 98.9 F 09/20/20 18:22 Pulse 119 H 09/20/20 18:22 Resp 16 09/20/20 18:22 BP 147/81 H 09/20/20 18:22 Pulse Ox 95 09/20/20 18:22 Body Mass Index 39.5 Appearance: Alert. Oriented X3. No acute distress. Eyes: Pupils equal, round and reactive to light. ENT: Pharynx normal. Neck: Normal inspection. Neck supple. No lymph nodes noted. No crepitus CVS: Normal heart rate and rhythm. Pulses normal. Normal S1 and S2 Respiratory: No respiratory distress. Breath sounds normal. No Wheezing. No rales Abdomen: Soft and nontender. No rigidity. No distention. good BS x4 Skin: Skin warm and dry. Normal skin color. Normal skin turgor. Extremities: No lower extremity edema. No lower extremity edema. No Lacerations. No Rash Neuro: Oriented X 3. No motor deficit. No sensory deficit. Moving all extermities. No slurred speech. Psych: Normal speech, normal train of thought Course Course Course Narrative: From patient's description of events as well as EMS, ?like there was a misunderstanding/verbal altercation at home, no threats were done. Patient is physically feeling well. Patient will be returning to her senior care Discharge Plan Discharge Clinical Impression: Normal exam Patient Disposition: Home, Self-Care Instructions: Normal Exam (ED) Additional Instructions: Please follow-up with your primary care physician tomorrow. If you have any worsening or new symptoms, please return to the emergency room or call 911 Prescriptions: No Action metformin 500 mg Tablet 500 mg PO DAILY 30 Days Qty: 30 RF: 0 clonazepam 1 mg Tablet 1 mg PO BID PRN (Reason: Anxiety) 30 Days Qty: 60 RF: 0 lithium carbonate 300 mg Tablet Extended Release 600 mg PO BID@0830,2029 30 Days Qty: 120 RF: 0 melatonin 3 mg Tablet 9 mg PO BEDTIME 30 Days Qty: 90 RF: 0 ziprasidone HCl 20 mg Capsule See Rx Instructions .ROUTE .COMPLEX 30 Days Qty: 90 RF: 0 lisinopril 2.5 mg Tablet 2.5 mg PO DAILY 30 Days Qty: 30 RF: 0 nicotine (polacrilex) 2 mg Gum 4 mg buccal Q2H PRN (Reason: Nicotine Cravings) 30 Days Qty: 50 RF: 0 benztropine 1 mg tablet 1 mg PO DAILY PRN (Reason: extrapyramidal effects/symptoms) 30 Days Qty: 30 RF: 0
== END 2020-09-20 19:11 | disposition home or self-care (01) ==
LOC: HO.ED 18:58
PROVIDERS: Emergency Provider Emergency Medicine
DX: Z71.1 Person with feared health complaint in whom no diagnosis is made (principal)
CPT/HCPCS: 99282; 99283

== ENCOUNTER 2020-11-13 14:04 | Emergency (ER) | payer OTHER, SELFPAY ==
--- NOTE | 2020-11-13 14:13 | ECG_ITS ---
Test Reason : ALTERMENTAL Blood Pressure : / mmHG Vent. Rate : 090 BPM Atrial Rate : 090 BPM P-R Int : 170 ms QRS Dur : 076 ms QT Int : 374 ms P-R-T Axes : 022 021 067 degrees QTc Int : 457 ms Normal sinus rhythm Nonspecific T wave abnormality Borderline ECG When compared with ECG of 10-JAN-2017 20:24, No significant change was found Referred By: Radha Lowe Electronically Signed By:ANKUR RAY
--- NOTE | 2020-11-13 14:15 | ED_ITS ---
HPI - Psych General Chief Complaint: Psychiatric Symptoms Stated Complaint: section 12 Time Seen by Provider: 11/13/20 14:12 Source: EMS Mode of arrival: EMS Limitations: altered mental status History of Present Illness HPI Narrative: 40-year-old female with a past medical history of PTSD, bipolar disease, schizoaffective disorder here on a Section 12. Per Section 12 patient is disorganized, manic, religiously preoccupied. Sent in for further evaluation. Difficult to examine patient as she is rambling, manic, intermittently cooperative. Related Data Home Medications Medication Instructions Recorded Confirmed amlodipine 2.5 mg tablet 7.5 mg PO DAILY 11/13/20 11/13/20 hydroxyzine pamoate 50 mg capsule 1 cap PO TID PRN 11/13/20 11/13/20 lithium carbonate 600 mg capsule 1 cap PO Q12H 11/13/20 11/13/20 metformin 1,000 mg tablet 1 tab PO DAILY 11/13/20 11/13/20 prazosin 2 mg capsule 1 cap PO BEDTIME 11/13/20 11/13/20 Previous Rx's Medication Instructions Recorded clonazepam 1 mg tablet 1 mg PO BID PRN 30 Days #60 tab 09/09/20 lisinopril 2.5 mg tablet 2.5 mg PO DAILY 30 Days #30 tab 09/09/20 benztropine 0.5 mg tablet 0.5 mg PO BID PRN #20 tab 11/13/20 haloperidol 5 mg tablet 5 mg PO BID PRN #20 tab 11/13/20 Allergies Allergy/AdvReac Type Severity Reaction Status Date / Time No Known Allergies Allergy Unverified 12/19/19 17:53 [No Known Allergies*] Review of Systems Review of Systems: Yes Unobtainable due to mental status PMFSH Past Medical History Attestation statement: The following information was validated with the patient. Source: old records reviewed and nursing notes reviewed Medical History Chronic post-traumatic stress disorder (PTSD) Schizoaffective disorder, bipolar type Social History Social History Household Members: Other Household Members Other:: half-way, 3 other cliets Housing: House Do you presently have visiting nurse or other home services: No Alcohol intake: never Patient Tobacco Use Status: Current everyday Tobacco user Tobacco use type: Cigarette e-Cigarette/Vaping Use: Former Use Second Hand Smoke Exposure: Yes Use of substances other than those prescribed or required for medical reasons: Unknown Substance Use Type: Marijuana Advance Directives: No Advance Directives Information Provided: No Patient : No service: Yes Sexual orientation: Did not discuss Physical Exam Vital Signs: Vital Signs: Last Vital Signs Temp 97.9 F 11/13/20 16:29 Pulse 92 11/13/20 16:29 Resp 18 11/13/20 16:29 BP 132/90 H 11/13/20 16:29 Pulse Ox 96 11/13/20 16:29 Body Mass Index 39.8 Const: General: awake Orientation/consciousness: patient oriented x3 Limitations: no limitations HENMT: Head: Yes normal to inspection Ears: hearing grossly normal bilaterally General nose exam: Normal external nose present Face and sinus: Yes normal facial exam Mouth: Normal oral and palatal mucosa present Throat: Yes posterior oropharynx normal Eyes: General: appearance normal, both eyes and all related structures Pupils: Equal, round and reactive pupils present Neck: Neck: Yes normal visual inspection Chest: Chest palpation & inspection: normal inspection of the chest Resp: Effort & Inspection: normal respiratory effort Auscultation: clear to auscultation bilaterally Cardio: Rate: regular rate Rhythm: regular rhythm Peripheral pulses: Peripheral pulses 2+ throughout GI: Inspection: Yes normal to inspection Palpation (GI): Soft to palpation and nontender Auscultation: normal bowel sounds Back/Spine/Pelvis: Thoracic/Lumbar Spine: thoracic and lumbar spine normal to inspection Skin: General skin exam: no rashes or lesions noted Neuro: Other: Rambling speech General: patient oriented x3 and moves all extremities Cranial nerves: Yes CN's II-XII intact bilaterally and Yes Equal, round and reactive pupils present Gait exam (Neuro): Normal gait present Extrem: General: Yes normal to inspection Psych: Appearance: disheveled Speech and movement: Pressured speech present and Psychomotor agitation in speech present Affect: Animated affect present Course Course Course Narrative: 40-year-old female with a past medical history of schizoaffective disorder, PTSD and bipolar here in a Section 12 for disorganized thoughts, rudy and being religiously preoccupied. Ordered labs, JUAN, EKG, COVID screen, crisis evaluation. -patient willingly take Ativan and Haldol p.o. after this I was able to speak to her. She tells me that she was admitted here at [facility] in September to and to [facility] (released 2 days ago). She does not feel like inpatient psych is helpful for her. She tells me they often change her medications but she continues to hear voices. She tells me that she is having AH nidia always talks to me. She tells me that she has been hearing voices for years. She tells me ?I just have to learn to live with them.' no homicidal thoughts. No suicidal thoughts. No substance use. No concern for acute ingestion or trauma. Placed in physician observation pending above. 2100-patient was seen by the care team and the psych nurse practitioner (Elvira). Plan was to give additional dose of Haldol 5 mg p.o.. Medication changes were made and these were sent to the patient's pharmacy. The patient is feeling much improved after receiving the initial dose of Haldol. More calm, cooperative, redirectable. The half-way was informed the patient will be returning. All questions answered [facility] - Psych Medical Records Attestation: I reviewed the patient's medical records. Lab Data Attestation: I reviewed the patient's lab results. Result diagrams: 11/13/20 14:53 11/13/20 14:53 Labs: Lab Results 11/13/20 11/13/20 11/13/20 Range/Units 14:53 14:53 14:53 WBC 15.6 H (4.8-10.8) X10*3/uL RBC 4.93 (4.20-5.50) X10*6/uL Hgb 14.0 (12.0-16.0) g/dl Hct 42.1 (37-47) % MCV 85.4 (80-98) fL MCH 28.4 (27.0-33.0) pg MCHC 33.3 (31.0-35.0) g/dl RDW 12.6 (11.0-16.0) % Plt Count 375 (160-400) X10*3/uL MPV 9.9 (9.4-12.3) fL Immature Gran % (Auto) 0.5 H (0.0-0.4) % Neut % (Auto) 76.5 H (45-73) % Lymph % (Auto) 13.4 L (20-40) % [place] % (Auto) 5.4 (2-11) % Eos % (Auto) 3.5 (0-4) % Baso % (Auto) 0.7 (0-2) % Lymph # (Auto) 2.1 (1.2-4.9) X10*3/uL [place] # (Auto) 0.8 (0.1-1.2) X10*3/uL Eos # (Auto) 0.6 H (0.0-0.4) X10*3/uL Baso # (Auto) 0.1 (0.0-0.2) X10*3/uL Abs Immat Gran (auto) 0.08 H (0.00-0.03) X10*3/uL Absolute Neuts (auto) 11.9 H (2.0-8.3) X10*3/uL Absolute Nucleated RBC 0.000 (0.0-0.012) X10*3/uL Nucleated RBC % (auto) 0.0 (0.0-0.2) /100WBC Sodium 139 (135-145) mmol/L Potassium 3.9 (3.3-5.1) mmol/L Chloride 106 (96-108) mmol/L Carbon Dioxide 20 L (22-29) mmol/L Anion Gap 17 (12-20) BUN 14 D (9-16) mg/dL Creatinine 1.11 (0.5-1.4) mg/dL Estim Creat Clear Calc 107.4 Estimated GFR 55 Random Glucose 173 H (60-115) mg/dL Calcium 9.7 (8.4-10.2) mg/dL Total Bilirubin 0.3 (0.0-1.0) mg/dL Direct Bilirubin < 0.2 (0.0-0.5) mg/dL AST 32 H (5-31) U/L ALT 45 H (0-31) U/L Alkaline Phosphatase 77 (39-117) U/L Total Protein 7.1 (6.5-8.0) g/dL Albumin 4.1 (3.5-5.0) g/dL Urine Test (NEGATIVE) Salicylates < 5.0 L (15-30) mg/dL Urine Opiates Screen (Not Detect) Urine Fentanyl Screen (Not Detect) Acetaminophen < 1 (<30) mcg/mL Ur Barbiturates Screen (Not Detect) Ur Phencyclidine Scrn (Not Detect) Ur Amphetamines Screen (Not Detect) U Benzodiazepines Scrn (Not Detect) [place] (0.60-1.20) mmol/L Urine Cocaine Screen (Not Detect) U Marijuana (THC) Screen (Not Detect) Ethyl Alcohol < 10 mg/dL COVID-19 (NETTE) (Negative) COVID-19 Clin Com 11/13/20 11/13/20 11/13/20 Range/Units 14:53 14:54 17:39 WBC (4.8-10.8) X10*3/uL RBC (4.20-5.50) X10*6/uL Hgb (12.0-16.0) g/dl Hct (37-47) % MCV (80-98) fL MCH (27.0-33.0) pg MCHC (31.0-35.0) g/dl RDW (11.0-16.0) % Plt Count (160-400) X10*3/uL MPV (9.4-12.3) fL Immature Gran % (Auto) (0.0-0.4) % Neut % (Auto) (45-73) % Lymph % (Auto) (20-40) % [place] % (Auto) (2-11) % Eos % (Auto) (0-4) % Baso % (Auto) (0-2) % Lymph # (Auto) (1.2-4.9) X10*3/uL [place] # (Auto) (0.1-1.2) X10*3/uL Eos # (Auto) (0.0-0.4) X10*3/uL Baso # (Auto) (0.0-0.2) X10*3/uL Abs Immat Gran (auto) (0.00-0.03) X10*3/uL Absolute Neuts (auto) (2.0-8.3) X10*3/uL Absolute Nucleated RBC (0.0-0.012) X10*3/uL Nucleated RBC % (auto) (0.0-0.2) /100WBC Sodium (135-145) mmol/L Potassium (3.3-5.1) mmol/L Chloride (96-108) mmol/L Carbon Dioxide (22-29) mmol/L Anion Gap (12-20) BUN (9-16) mg/dL Creatinine (0.5-1.4) mg/dL Estim Creat Clear Calc Estimated GFR Random Glucose (60-115) mg/dL Calcium (8.4-10.2) mg/dL Total Bilirubin (0.0-1.0) mg/dL Direct Bilirubin (0.0-0.5) mg/dL AST (5-31) U/L ALT (0-31) U/L Alkaline Phosphatase (39-117) U/L Total Protein (6.5-8.0) g/dL Albumin (3.5-5.0) g/dL Urine Test NEGATIVE (NEGATIVE) Salicylates (15-30) mg/dL Urine Opiates Screen (Not Detect) Urine Fentanyl Screen (Not Detect) Acetaminophen (<30) mcg/mL Ur Barbiturates Screen (Not Detect) Ur Phencyclidine Scrn (Not Detect) Ur Amphetamines Screen (Not Detect) U Benzodiazepines Scrn (Not Detect) [place] 0.82 (0.60-1.20) mmol/L Urine Cocaine Screen (Not Detect) U Marijuana (THC) Screen (Not Detect) Ethyl Alcohol mg/dL COVID-19 (NETTE) Negative (Negative) COVID-19 Clin Com See Note 11/13/20 Range/Units 17:39 WBC (4.8-10.8) X10*3/uL RBC (4.20-5.50) X10*6/uL Hgb (12.0-16.0) g/dl Hct (37-47) % MCV (80-98) fL MCH (27.0-33.0) pg MCHC (31.0-35.0) g/dl RDW (11.0-16.0) % Plt Count (160-400) X10*3/uL MPV (9.4-12.3) fL Immature Gran % (Auto) (0.0-0.4) % Neut % (Auto) (45-73) % Lymph % (Auto) (20-40) % [place] % (Auto) (2-11) % Eos % (Auto) (0-4) % Baso % (Auto) (0-2) % Lymph # (Auto) (1.2-4.9) X10*3/uL [place] # (Auto) (0.1-1.2) X10*3/uL Eos # (Auto) (0.0-0.4) X10*3/uL Baso # (Auto) (0.0-0.2) X10*3/uL Abs Immat Gran (auto) (0.00-0.03) X10*3/uL Absolute Neuts (auto) (2.0-8.3) X10*3/uL Absolute Nucleated RBC (0.0-0.012) X10*3/uL Nucleated RBC % (auto) (0.0-0.2) /100WBC Sodium (135-145) mmol/L Potassium (3.3-5.1) mmol/L Chloride (96-108) mmol/L Carbon Dioxide (22-29) mmol/L Anion Gap (12-20) BUN (9-16) mg/dL Creatinine (0.5-1.4) mg/dL Estim Creat Clear Calc Estimated GFR Random Glucose (60-115) mg/dL Calcium (8.4-10.2) mg/dL Total Bilirubin (0.0-1.0) mg/dL Direct Bilirubin (0.0-0.5) mg/dL AST (5-31) U/L ALT (0-31) U/L Alkaline Phosphatase (39-117) U/L Total Protein (6.5-8.0) g/dL Albumin (3.5-5.0) g/dL Urine Test (NEGATIVE) Salicylates (15-30) mg/dL Urine Opiates Screen Not Detected (Not Detect) Urine Fentanyl Screen Not Detected (Not Detect) Acetaminophen (<30) mcg/mL Ur Barbiturates Screen Not Detected (Not Detect) Ur Phencyclidine Scrn Not Detected (Not Detect) Ur Amphetamines Screen Not Detected (Not Detect) U Benzodiazepines Scrn Not Detected (Not Detect) [place] (0.60-1.20) mmol/L Urine Cocaine Screen Not Detected (Not Detect) U Marijuana (THC) Screen Not Detected (Not Detect) Ethyl Alcohol mg/dL COVID-19 (NETTE) (Negative) COVID-19 Clin Com ECG Data Attestation: I personally reviewed and interpreted this ECG as follows: ECG interpretation date: 11/13/20 ECG interpretation time: 16:28 Interpretation: NSR with rate 90, normal pr, normal qrs, normal qt Discharge Plan Discharge Clinical Impression: Schizoaffective disorder, bipolar type Patient Disposition: Home, Self-Care Instructions: Schizoaffective Disorder (ED) Additional Instructions: Follow-up with your outpatient providers Prescriptions: New haloperidol 5 mg tablet 5 mg PO BID PRN (Reason: agitation) Qty: 20 RF: 0 benztropine 0.5 mg tablet 0.5 mg PO BID PRN (Reason: restless leg(s)) Qty: 20 RF: 0 No Action clonazepam 1 mg Tablet 1 mg PO BID PRN (Reason: Anxiety) 30 Days Qty: 60 RF: 0 lisinopril 2.5 mg Tablet 2.5 mg PO DAILY 30 Days Qty: 30 RF: 0 hydroxyzine pamoate 50 mg capsule 1 cap PO TID PRN (Reason: anxiety) RF: 0 amlodipine 2.5 mg tablet 7.5 mg PO DAILY RF: 0 lithium carbonate 600 mg capsule 1 cap PO Q12H RF: 0 metformin 1,000 mg tablet 1 tab PO DAILY RF: 0 prazosin 2 mg capsule 1 cap PO BEDTIME RF: 0 Referrals: Physician,Unknown [Primary Care Provider] - 2 days Interventions: ED Discharge Assessment Last Done: 11/13/20 20:38
[2020-11-13 14:17] VITALS: BP 130/91; PULSE 104; RESP 18; TEMP 36.7; O2SAT 98; BMI 39.8
[2020-11-13] MEDS: HaloperidoL 5 MG TABLET PO ×2 (14:29→20:36)
[2020-11-13] MEDS: LORazepam 1 MG TABLET 2 MG PO (14:30)
[2020-11-13 14:59] LABS: MANUAL DIFF FLAG NO
[2020-11-13 15:01] LABS: Basophils Absolute Auto 0.1 X10*3/uL (0.0-0.2); Basophils Percent Auto 0.7 % (0-2); Eosinophils Absolute Auto 0.6 X10*3/uL (0.0-0.4); Eosinophils Percent Auto 3.5 % (0-4); Hematocrit 42.1 % (37-47); Imm Gran Abs Auto 0.08 X10*3/uL (0.00-0.03); Imm Gran Pct Auto 0.5 % (0.0-0.4); Lymphocytes Absolute Auto 2.1 X10*3/uL (1.2-4.9); Lymphocytes Percent Auto 13.4 % (20-40); Mean Corpuscular HGB Conc 33.3 g/dl (31.0-35.0); Mean Corpuscular Hemoglobin 28.4 pg (27.0-33.0); Mean Corpuscular Volume 85.4 fL (80-98); Mean Platelet Volume 9.9 fL (9.4-12.3); Monocytes Absolute Auto 0.8 X10*3/uL (0.1-1.2); Monocytes Percent Auto 5.4 % (2-11); Neutrophils Absolute Auto 11.9 X10*3/uL (2.0-8.3); Neutrophils Percent Auto 76.5 % (45-73); Platelet Count 375 X10*3/uL (160-400); Red Blood Count 4.93 X10*6/uL (4.20-5.50); Red Cell Distribution Width 12.6 % (11.0-16.0); White Blood Count 15.6 X10*3/uL (4.8-10.8)
[2020-11-13 15:16] LABS: COVID-19 Test Negative (Negative); IDNOW Serial# 9DD0AD1C
[2020-11-13 15:17] LABS: Lithium 0.82 mmol/L (0.60-1.20)
[2020-11-13 15:24] LABS: Ethanol < 10 mg/dL
[2020-11-13 15:25] LABS: Acetaminophen LAB < 1 mcg/mL (<30); Alanine Aminotransferase 45 U/L (0-31); Albumin Level 4.1 g/dL (3.5-5.0); Alkaline Phosphatase 77 U/L (39-117); Anion Gap 17 (12-20); Aspartate Amino Transferase 32 U/L (5-31); Bilirubin Direct < 0.2 mg/dL (0.0-0.5); Bilirubin Total 0.3 mg/dL (0.0-1.0); Blood Urea Nitrogen 14 mg/dL (9-16); Calcium 9.7 mg/dL (8.4-10.2); Carbon Dioxide 20 mmol/L (22-29); Chloride 106 mmol/L (96-108); Creatinine Clr Calc Pharmacy 107.4; Estimated Glomerular Filt Rate 55; Glucose Random 173 mg/dL (60-115); Potassium 3.9 mmol/L (3.3-5.1); Salicylate < 5.0 mg/dL (15-30); Sodium 139 mmol/L (135-145); Total Protein 7.1 g/dL (6.5-8.0)
[2020-11-13 16:29] VITALS: BP 132/90; PULSE 92; RESP 18; TEMP 36.6; O2SAT 96
--- NOTE | 2020-11-13 16:31 | PHA.MEDREC ---
Pharmacy Consult ? Medication Reconciliation Pharmacy has completed the medication reconciliation.
[2020-11-13 18:11] LABS: Amphetamine Screen Urine Not Detected (Not Detect); Barbiturates, Urine Not Detected (Not Detect); Benzodiazepines Screen Urine Not Detected (Not Detect); Cannabinoid Screen Urine Not Detected (Not Detect); Cocaine Screen Urine Not Detected (Not Detect); Fentanyl, urine Not Detected (Not Detect); Opiate Screen Urine Not Detected (Not Detect); Phencyclidine Screen Urine Not Detected (Not Detect)
[2020-11-13 18:13] LABS: UPreg QC Valid YES; Urine Pregnancy NEGATIVE (NEGATIVE)
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
--- NOTE | 2020-11-13 19:32 | PC.NURSE ---
tam called. requesting that we fax over any medical history. information faxed and received. pt is a bed search. pt told that she will be a bed search, not happy and threatening to leave.
--- NOTE | 2020-11-13 22:57 | MHC.CARE ---
Pt reportedly came on a section 12 and was made an inpatient bedsearch due to behaviors she was exhibiting in the residential. CARE team became involved not realizing [facility] made pt a bedsearch and they had not confirmed pt was a bedsearch at the time.Upon arrival, pt was medicated due to being intermittently cooperative and exhibiting similar behaviors. CARE team and psychiatry/ Elvira Aguirre NP went and talked with pt. Pt presented somewhat organized, insightful, pleasant, was able to provide valuable information such as just leaving [facility] two days ago and that inpatient isn't always helpful to her. Pt was calm and affect was congruent. Pt reports she has conflict with the staff at the residential and feels that they aren't equipped to mentally ill patients . She speaks about having multiple personalities . Pt reports she drank two beers one month ago and a couple puffs of marijuana. Pt reports her sleep is disrupted. Pt denies SI/HI. She reports she feels good and calm. She does not wish to remain at the ED. Elvira Aguirre NP gave additional dose of Haldol 5 mg p.o.. ?Medication changes were made and these were sent to the patient's pharmacy. ?The patient is feeling much improved after receiving the initial dose of Haldol. ?More calm, cooperative, redirectable. At this time, pt had been in the ED for a few hours and had not displayed any concerns or risk. Consulted with Elvira who shares that she agrees that pt can be discharged back to her residential with script and to follow up with her outpatient provider. The residential was contacted. CARE team talked with Rehan- group leader wafer polishing who would not allow CARE team to speak and talking over VC. He reports that the residential does not have staff to manage her behaviors and that she has been sectioned twice in the last two weeks. She has been reportedly on and off with her medications and recently discharged from [facility] and staff reports she signed herself out . He states that she is under medicated however not allowing us to share with him that medication changes are made by psychiatry that she would follow up with. He insisted we speak with clinician Razia. Razia contacted us also not pleased with disposition and shared that she doesn't feel that the house can manage her behaviors. Elvira began to share that she was just discharged from [facility] two days ago and has not been problematic in the ED and has taken her medications. Due to pt's presentation we cannot keep her here. Razia drawer in stitch bonding machine clinician from [facility] states If I have to spend my whole Monday writting section 12's to get her back I will . Pt was discharged, GUSTAVO Lowe was in agreement. Pt was transported back to her residential via cab and presentation had been completely appropriate.
== END 2020-11-13 22:23 | disposition home or self-care (01) ==
PROVIDERS: Nurse Practitioner Family; Emergency Provider Emergency Medicine
DX: F25.0 Schizoaffective disorder, bipolar type (principal); F30.9 Manic episode, unspecified; Z20.822 Contact with and (suspected) exposure to COVID-19; F43.12 Post-traumatic stress disorder, chronic; Z79.899 Other long term (current) drug therapy; F17.210 Nicotine dependence, cigarettes, uncomplicated; F12.90 Cannabis use, unspecified, uncomplicated
CPT/HCPCS: 36415; 80048; 80076; 80143; 80178; 80179; 80307; 81025; 82077; 85025; 87635; 93005; 96372; 99285; J2060

== ENCOUNTER 2021-12-04 13:00 | Emergency (ER) | payer OTHER, SELFPAY ==
[2021-12-04 13:05] VITALS: BP 120/86; PULSE 121; RESP 20; TEMP 35.9; O2SAT 96; BMI 38.0
--- NOTE | 2021-12-04 16:56 | ED.PSYCH ---
HPI - Psych General Chief Complaint: Psychiatric Symptoms Stated Complaint: crisis Time Seen by Provider: 12/04/21 16:39 Source: patient Mode of arrival: ambulatory Limitations: no limitations History of Present Illness HPI Narrative: Patient presents to the Emergency Department today via personal vehicle for evaluation of increasing anxiety. She states that she drove herself here today from her intermediate. She states that for the past week and a half she has been requesting to be placed into a partial program but has not heard back from any of her counselors. She is having increasing racing thoughts, feeling as though she is becoming manic, and hearing voices. Having difficulty sleeping at night. She denies suicidal or homicidal ideations. She states she is currently prescribed lorazepam 0.5 mg daily and thinks this dose needs to be increased, furthermore she would like to be started back on trazodone as she has taken this in the past and has been helpful. Currently states she is compliant with lithium, Seroquel, and Thorazine Related Data Home Medications Medication Instructions Recorded Confirmed amlodipine 2.5 mg tablet 7.5 mg PO DAILY 11/13/20 11/13/20 hydroxyzine pamoate 50 mg capsule 1 cap PO TID PRN anxiety 11/13/20 11/13/20 lithium carbonate 600 mg capsule 1 cap PO Q12H 11/13/20 11/13/20 metformin 1,000 mg tablet 1 tab PO DAILY 11/13/20 11/13/20 prazosin 2 mg capsule 1 cap PO BEDTIME 11/13/20 11/13/20 Previous Rx's Medication Instructions Recorded clonazepam 1 mg tablet 1 mg PO BID PRN Anxiety 30 days 09/09/20 #60 tabs lisinopril 2.5 mg tablet 2.5 mg PO DAILY 30 days #30 tabs 09/09/20 benztropine 0.5 mg tablet 0.5 mg PO BID PRN restless leg(s) 11/13/20 #20 tabs haloperidol 5 mg tablet 5 mg PO BID PRN agitation #20 tabs 11/13/20 Allergies Allergy/AdvReac Type Severity Reaction Status Date / Time lamotrigine [From Lamictal] Allergy Unknown Verified 12/04/21 13:10 Review of Systems Review of Systems: Constitutional : No Fever, No Chills ENT/Mouth : No Ear Pain, No Nasal Congestion, No sore throat Eyes: No Eye Pain, No Swelling, No Redness Cardiovascular : No Chest Pain, No SOB Respiratory : No Cough, No Sputum, No Dyspnea Gastrointestinal : No Nausea, No Vomiting, No Diarrhea, No Hematochezia, No Melena Genitourinary : No Dysuria, No Urinary Frequency, No Hematuria Musculoskeletal : No Myalgias Skin : No Skin Lesions, No rash Neuro : No Weakness, No Numbness, No Paresthesias, No Dizziness, No Headache Psych : positive Anxiety, positive Depression, positive auditory hallucinations, no SI/HI Heme/Lymph: No Lymphadenopathy Endocrine : No Polyuria, No Polydipsia Yes all other systems are reviewed and are negative [facility] Past Medical History Attestation statement: The following information was validated with the patient. Source: old records reviewed Medical History Chronic post-traumatic stress disorder (PTSD) Schizoaffective disorder, bipolar type Social History Social History Household Members: Other Household Members Other:: intermediate, 3 other cliets Housing: House Do you presently have visiting nurse or other home services: No Alcohol intake: never Patient Tobacco Use Status: Current everyday Tobacco user Tobacco use type: Cigarette e-Cigarette/Vaping Use: Former Use Second Hand Smoke Exposure: Yes Substance Use Type: Marijuana Advance Directives: No Advance Directives Information Provided: No service: Yes Sexual orientation: Did not discuss Physical Exam Vital Signs: Vital Signs: Last Vital Signs Temp 98.1 F 12/04/21 17:50 Pulse 102 H 12/04/21 17:50 Resp 20 12/04/21 17:50 BP 137/88 12/04/21 17:50 Pulse Ox 98 12/04/21 17:50 O2 Del Method 12/04/21 17:50 BMI result Body Mass Index 38.0 Appearance: Alert.?Oriented to person, place and time. No acute distress.? Appears anxious, pressured speech, however has organized thinking. Eyes: Pupils equal, round and reactive to light.? ENT: Pharynx normal.?? Neck: Normal inspection.? Neck supple.?? CVS: Heart sounds normal. Normal heart rate and rhythm.? Pulses normal.?? Respiratory: No respiratory distress.? Lung sounds clear to auscultation bilaterally?? Abdomen: Soft and non-tender. Normoactive bowel sounds. Skin: Skin warm and dry.? Normal skin color.? Extremities: No lower extremity edema.? No calf ttp? Neuro: Moves all extremities spontaneously. Sensation intact bilaterally. CN II-XII intact. No focal neuro deficits. Ambulates with normal steady gait. Course Course Course Narrative: Patient is a 41-year-old female with a past medical history of PTSD, bipolar disorder, and schizophrenia who presents emergency department today for increasing anxiety in auditory hallucinations. She is here voluntary, she does have pressured speech, and appears anxious, however she has organized thought process at this time, denies suicidal or homicidal ideations. Reports medication compliance at the home, would like to be evaluated by a [facility] providers for possible placement into partial program, and would like resources for a new psychiatrist. Care team came to speak to patient, they are going to send referrals for partial program, she was additionally advised that she could contact [facility] and request placement for respite. She is in no apparent distress. Conscious alert and oriented x4, maintaining a clear thought process, you would like to be discharged at the time of my examination. She states that she wanted to make sure that she was actually having referrals for partial since she did not hear back from anyone over the past week and half. Patient stable for discharge home [facility] - Psych Medical Records Attestation: I reviewed the patient's medical records. Lab Data Attestation: I reviewed the patient's lab results. Discharge Plan Discharge Clinical Impression: Schizoaffective disorder, bipolar type Patient Disposition: Home, Self-Care Additional Instructions: You have been referred partial hospitalization. Additionally, you may speak with [facility] outpatient for placement in Respite. Contact your psychiatrist and will request a sooner appointment for medication changes. Return to emergency department for any new or worsening symptoms or concerns such as worsening anxiety, depression, suicidal thoughts, or homicidal thoughts. Prescriptions: No Action clonazepam 1 mg Tablet 1 mg PO BID PRN (Reason: Anxiety) 30 Days Qty: 60 0RF lisinopril 2.5 mg Tablet 2.5 mg PO DAILY 30 Days Qty: 30 0RF Protocol: Hold for SBP< HOLD for SBP < : 90 hydroxyzine pamoate 50 mg capsule 1 cap PO TID PRN (Reason: anxiety) amlodipine 2.5 mg tablet 7.5 mg PO DAILY lithium carbonate 600 mg capsule 1 cap PO Q12H metformin 1,000 mg tablet 1 tab PO DAILY prazosin 2 mg capsule 1 cap PO BEDTIME haloperidol 5 mg tablet 5 mg PO BID PRN (Reason: agitation) Qty: 20 0RF benztropine 0.5 mg tablet 0.5 mg PO BID PRN (Reason: restless leg(s)) Qty: 20 0RF Rx Instructions: Give with haldol PRN Referrals: N Crisis [Other]
--- NOTE | 2021-12-04 17:21 | MHC.CARE ---
Pt presented [place] [facility] via personal vehicle for an evaluation due to increased anxiety and auditory hallucinations. Pt reported [facility]. Pt requested a a partial program referral as she has increased racing thoughts, feeling as though she is becoming manic, and hearing voices. Note a baseline Pt hears AH. Pt stated she has difficulty sleeping. Pt denies SI/HI/VH. Pt feels she should see her psychiatrist sooner as she wants a med change. Plan for Pt to be discharged home. CARE Team notified shelter staff regarding obtaining a sooner psychiatry appt due to Pts difficulty sleeping. CARE Team placed Pt on alert with [facility] Crisis. CARE Team and Pt discussed how to utilize crisis services and discussed respite. CARE Team discussed plan with GUSTAVO Kauffman
[2021-12-04 17:50] VITALS: BP 137/88; PULSE 102; RESP 20; TEMP 36.7; O2SAT 98
== END 2021-12-04 18:37 | disposition home or self-care (01) ==
PROVIDERS: Emergency Provider Student in an Organized Health Care Education/Training Program
DX: F25.0 Schizoaffective disorder, bipolar type (principal); F41.9 Anxiety disorder, unspecified; F43.12 Post-traumatic stress disorder, chronic; F17.210 Nicotine dependence, cigarettes, uncomplicated; F12.90 Cannabis use, unspecified, uncomplicated; Z79.899 Other long term (current) drug therapy
CPT/HCPCS: 99283

== ENCOUNTER 2022-01-12 12:14 | Outpatient (REF) | payer MEDICARE, SELFPAY ==
[2022-01-12 13:09] LABS: Amphetamine Screen Urine Not Detected (Not Detect); Barbiturates, Urine Not Detected (Not Detect); Benzodiazepines Screen Urine Not Detected (Not Detect); Cannabinoid Screen Urine Not Detected (Not Detect); Cocaine Screen Urine Not Detected (Not Detect); Fentanyl, urine Not Detected (Not Detect); Opiate Screen Urine Not Detected (Not Detect); Phencyclidine Screen Urine Not Detected (Not Detect)
== END 2022-01-12 12:15 | disposition home or self-care (01) ==
LOC: HO.PHPLNP 12:14
PROVIDERS: Visit Provider Nurse Practitioner Psychiatric/Mental Health
DX: F31.81 Bipolar II disorder (principal)
CPT/HCPCS: 80307

== ENCOUNTER 2022-01-26 09:45 | Outpatient (RCR) | payer MEDICARE, OTHER, SELFPAY ==
[2022-01-12 12:32] VITALS: TEMP 36.1
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
--- NOTE | 2022-01-14 14:10 | PC.NURSE ---
case opened in clinical team
--- NOTE | 2022-01-18 14:37 | PHP/IOPCOSIG ---
PHP/IOP Treatment Plan Review PHP/IOP Treatment Plan Start: 01/11/22 12:06 Freq: Status: Active Protocol: Document 01/11/22 16:32 KAIRA (Rec: 01/11/22 16:32 AKIRA [id number]) PHP/IOP Treatment Plan Diagnosis (DSM-5) F31.81 Bipolar II D/O w/ psychotic symptoms F43.10 PTSD F44.81 DID Edit Result 01/11/22 16:32 AKIRA (Rec: 01/12/22 09:57 AKIRA [id number]) PHP/IOP Treatment Plan Active Problems Problem Need for discharge follow-up plan Date Identified 01/11/22 Date Identified 01/11/22 Edit Result 01/11/22 16:32 AKIRA (Rec: 01/12/22 10:25 AKIRA [id number]) PHP/IOP Treatment Plan Active Problems Problem Bipolar II disorder with psychosis,depressed,PTSD, Goal #1 Goal Discharge plan follow-up Criteria/Intended Outcome Pt will identify a discharge plan that includes appts with outpt providers Date Identified 01/11/22 Completion Target Date 01/26/22 Criteria/Intended Outcome Pt will develop a support network to utilize post discharge Date Identified 01/11/22 Completion Target Date 01/26/22 Staff Responsibilities Staff will provide support, encourage continuity of treatment and provide guidance for aftercare planning Goal #2 Goal Mood regulation,reduce symptoms of PTSD,depression and psychosis. Criteria/Intended Outcome Discuss precipitants to admission 3 out of 5 groups Date Identified 01/11/22 Completion Target Date 01/26/22 Criteria/Intended Outcome Learn and practice safe coping skills 3 out of 5 opportunities daily Date Identified 01/11/22 Completion Target Date 01/26/22 Criteria/Intended Outcome Meet with [facility] psychiatric providers weekly Date Identified 01/11/22 Completion Target Date 01/26/22 Staff Responsibilities Staff will provide psychotherapy and psycho- educational groups to provide a safe and supportive environment for patients to process their emotions 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 Learn effective coping skills to manage emotions and engage in treatment post [facility] Planned Referrals/Supports at Discharge Pt will be discharged to outpatient providers Estimated Discharge Date 01/26/22 Intensity Partial Hospitalization S.N.A.P Strengths (personal qualities we can Pt is self aware,she has build upon in treatment) existing coping skills to build upon. Pt has a strong support network. Needs (what would help you achieve goals Maintain stability of mental ?) health,mood regulation,reduce symptoms of PTSD,depression and psychosis. Learn effective coping skills to manage emotions and engage in treatment post PHP Abilities (what skills do you possess?) Pt completed high school,was in the ( [employer] ) for 6 years and she found meaningful employment. Preferences (how do you want your In person PHP group treatment treatment?) Disability Status Does the patient have and disability No requiring accommodation or modification of policies/procedures Patient Review of Treatment Plan Date of Case Opening 01/11/22
--- NOTE | 2022-01-21 15:08 | P.PNPSP_ITS ---
Subjective Subjective Date of Service: 01/21/22 Reason For Visit: bipolar II,PTSD Medical Problems Affecting Mental Status: No Interim History: Reports ?I am doing great ?. States depression symptoms have lessened, feels much improved. Continues with anxiety, states that is lessening. Finding PHP groups to be helpful. Auditory hallucinations continue but are in better control. No SI, no HI. Reports feels safe. Plans to go to [facility] after completion of PHP. Medication Compliance: Yes Side effects from medications: Yes (dry mouth) Attending Groups: Yes Review of Systems Acute medical concerns: No Medical Review of Systems: unchanged Review of Systems Review of Systems dry mouth Yes all other systems are reviewed and are negative Mental Status Exam Mental Status Exam Narrative: NAD. no tics or tremors noted, no abnormal movements. Patient Appearance: Appropriate Patient Orientation: Person, Place, Time and Situation Level of Consciousness: Appropriate and Alert Patient Behavior: Appropriate, Cooperative and Good Eye Contact Mood Description: Appropriate (Reports depression and anxiety still present but improving) Affect Description: Appropriate and Anxious (Slightly anxious.) Patient Cognition Impaired: No Ability to Follow Directions: Excellent Speech Pattern: Clear and Appropriate Memory Description: Intact Hallucinations: Auditory (Reports this is baseline) Delusions: Not Present Thought Process: Intact Thought Content: positive for Intact Depressive Symptoms: Changes in Appetite (increased), Sleeping More Than Usual and Increased Fatigue Judgement: Fair Assessment & Plan Assessment & Plan (1) Bipolar II disorder, severe, depressed, with mood-congruent psychotic features, in partial remission: Status: Acute Code(s): F31.81 - Bipolar II disorder Assessment and Plan: Reports symptoms are improving. Finding groups in partial to be helpful. Satisfied with current medication regimen. No SI/HI, no safety concerns. (2) Dissociative identity disorder: Status: Acute Code(s): F44.81 - Dissociative identity disorder (3) Chronic post-traumatic stress disorder (PTSD): Status: Chronic Code(s): F43.12 - Post-traumatic stress disorder, chronic Plan 1. Continue with current [facility] plan of care. 2. Continue with current medication regimen as prescribed by outpatient psychiatric provider. 3. Follow-up as per protocol. Patient educated on: diagnosis, medication risk/benefits and therapeutic strategies Informed Consent: understands Reason for contiued partial hosp. stay Substantial Risk for: inability to function, rapid decompensation and med/psych decompensation Certification I certify that partial hospital treatment is medically necessary due to the symptoms and problems resulting from the patient's mental illness and the failure to treat the patient at the partial hospital level of care would likely result in the patient requiring inpatient psychiatric care which could not be prevented at a less intensive level of care. I spent minutes with the patient and/or on the patient floor today, greater than?50% of which was spent counseling/coordinating care. Discharge Plan Discharge Attending provider: Js Ro Medications: No Action metformin 500 mg Tablet 1,000 mg PO DAILY amlodipine 5 mg Tablet 5 mg PO DAILY lorazepam 0.5 mg Tablet 0.5 mg PO DAILY PRN (Reason: Anxiety) chlorpromazine [Thorazine] 200 mg Tablet 200 mg PO BID Rx Instructions: Take at 2:00 pm and Bedtime lithium carbonate 300 mg Tablet 600 mg PO BID rosuvastatin 10 mg Tablet 10 mg PO BEDTIME quetiapine 400 mg Tablet 400 mg PO BEDTIME Jardiance 25 mg Tablet 25 mg PO DAILY chlorpromazine [Thorazine] 100 mg Tablet 100 mg PO QID PRN (Reason: Agitation) haloperidol [Haldol] 1 mg Tablet 1 mg PO TID PRN (Reason: Agitation) lisinopril 5 mg Tablet 5 mg PO DAILY
--- NOTE | 2022-01-26 14:18 | HO.PHPIOP ---
I left a message for the clients therapist Michell kerr clients dc
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
== END 2022-01-26 23:59 | disposition home or self-care (01) ==
LOC: HO.PHPA 09:45
PROVIDERS: Visit Provider Psychiatry & Neurology Psychiatry
DX: F43.12 Post-traumatic stress disorder, chronic (principal); F44.81 Dissociative identity disorder; F31.81 Bipolar II disorder; F25.0 Schizoaffective disorder, bipolar type
CPT/HCPCS: 90791; 90792; 90853

== ENCOUNTER 2022-09-26 20:50 | Emergency (ER) | payer OTHER, MEDICARE, SELFPAY ==
--- NOTE | 2022-09-26 21:16 | ED_ITS ---
HPI - Psych General Chief Complaint: Psychiatric Symptoms Stated Complaint: Hearing Voices Time Seen by Provider: 09/26/22 21:12 Source: patient Mode of arrival: ambulatory Limitations: no limitations History of Present Illness HPI Narrative: Patient 42 years old with history of bipolar disorder dissociative identity disorder PTSD schizoaffective disorder comes here as she does not feels safe at home hearing voices as dark spirit denies any SI Related Data Home Medications Medication Instructions Recorded Confirmed amlodipine 2.5 mg tablet 5 mg PO DAILY 09/26/22 09/26/22 chlorpromazine 200 mg tablet 200 mg PO BEDTIME 09/26/22 09/26/22 empagliflozin 25 mg tablet 25 mg PO DAILY 09/26/22 09/26/22 (Jardiance) lisinopril 2.5 mg tablet 2.5 mg PO DAILY 09/26/22 09/26/22 lithium carbonate 300 mg capsule 600 mg PO BID 09/26/22 09/26/22 lorazepam 0.5 mg tablet 0.5 mg PO DAILY PRN Anxiety 09/26/22 09/26/22 metformin 1,000 mg tablet 1,000 mg PO BID 09/26/22 09/26/22 quetiapine 300 mg tablet 300 mg PO BEDTIME 09/26/22 09/26/22 rosuvastatin 10 mg tablet 10 mg PO BEDTIME 09/26/22 09/26/22 semaglutide 3 mg tablet (Rybelsus) 3 mg PO QAM 09/26/22 09/26/22 Allergies Allergy/AdvReac Type Severity Reaction Status Date / Time lamotrigine [From Lamictal] Allergy Rash Verified 01/12/22 12:07 seafood Allergy Itching Verified 01/12/22 12:07 [facility] Past Medical History Medical History Chronic post-traumatic stress disorder (PTSD) Hyperlipemia Hypertension Schizoaffective disorder, bipolar type Type II diabetes mellitus Social History Social History Household Members: Other Household Members Other:: Group Living Environment Housing: House Do you presently have visiting nurse or other home services: No Alcohol intake: never Patient Tobacco Use Status: Former Tobacco user Tobacco use type: Cigarette Smoked in Last 30 Days: Yes e-Cigarette/Vaping Use: Former Use Second Hand Smoke Exposure: Yes Use of substances other than those prescribed or required for medical reasons: No Substance Use Type: Marijuana Advance Directives: No Advance Directives Information Provided: No Patient : No service: Yes Sexual orientation: Did not discuss Physical Exam Vital Signs: Vital Signs: Last Vital Signs Temp 98.0 F 09/27/22 02:12 Pulse 115 H 09/27/22 02:12 Resp 18 09/27/22 02:12 BP 129/86 09/27/22 02:12 Pulse Ox 96 09/27/22 02:12 O2 Del Method Room Air 09/27/22 02:12 BMI result Body Mass Index 26.5 Appearance: Alert. Oriented X3. No acute distress. Very anxious Eyes: PERRLA, No Nystagmus ENT: Pharynx normal. Oral Mucosa moist Neck: Normal inspection. Neck supple. CVS: Normal heart rate and rhythm. Pulses normal. Respiratory: No respiratory distress. Equal air entry bilateral, no wheezing/rales/rhonchi Abdomen: Soft and nontender. Bowel sounds are present, no mass palpable, no CVA tenderness Skin: Skin warm and dry. Normal skin color. Normal skin turgor. Extremities: No lower extremity edema. No calf tenderness psych: Mood stable anxious denies any SI Neuro: Oriented X 3. No motor deficit. No sensory deficit.No cerebellar signs , cranial nerves II-XII intact Medications Administered Generic Name Dose Route Start Last Admin Trade Name Freq PRN Reason Stop Dose Admin Atorvastatin Calcium 40 mg 09/27/22 21:00 09/26/22 23:24 Atorvastatin Calcium 40 Mg Tablet PO 40 mg BEDTIME CLAUDIA Administration Chlorpromazine HCl 200 mg 09/26/22 23:15 09/26/22 23:21 Chlorpromazine Hcl 100 Mg Tablet PO 200 mg BEDTIME CLAUDIA Administration [place] Carbonate 600 mg 09/26/22 23:15 09/26/22 23:21 [place] Carbonate 300 Mg Capsule PO 600 mg BID CLAUDIA Administration Quetiapine Fumarate 300 mg 09/26/22 23:15 09/26/22 23:25 Quetiapine Fumarate 300 Mg Tablet PO 300 mg BEDTIME CLAUDIA Administration Discontinued Medications Generic Name Dose Route Start Last Admin Trade Name Freq PRN Reason Stop Dose Admin Lorazepam 2 mg 09/27/22 02:09 09/27/22 02:13 Lorazepam 1 Mg Tablet PO 09/27/22 02:10 2 mg ONCE ONE Administration Medical Decision Making Medical Decision Making MDM Narrative: Patient to be seen by care team for further evaluation/placement Lab Data MDM Lab Attestation statement: I reviewed the patient's lab results. 09/26/22 23:35 09/26/22 23:35 Labs: Lab Results 09/26/22 09/26/22 09/26/22 Range/Units 22:11 22:11 23:35 WBC 12.1 H (4.8-10.8) X10*3/uL RBC 5.40 (4.20-5.50) X10*6/uL Hgb 15.1 (12.0-16.0) g/dl Hct 44.7 (37.0-47.0) % MCV 82.8 (80.0-98.0) fL MCH 28.0 (27.0-33.0) pg MCHC 33.8 (31.0-35.0) g/dl RDW 13.1 (11.0-16.0) % Plt Count 351 (160-400) X10*3/uL MPV 10.3 (9.4-12.3) fL Immature Gran % (Auto) 0.4 (0.0-0.4) % Neut % (Auto) 64.2 (45-73) % Lymph % (Auto) 24.0 (20-40) % [place] % (Auto) 5.8 (2-11) % Eos % (Auto) 4.8 H (0-4) % Baso % (Auto) 0.8 (0-2) % Lymph # (Auto) 2.9 (1.2-4.9) X10*3/uL [place] # (Auto) 0.7 (0.1-1.2) X10*3/uL Eos # (Auto) 0.6 H (0.0-0.4) X10*3/uL Baso # (Auto) 0.1 (0.0-0.2) X10*3/uL Abs Immat Gran (auto) 0.05 H (0.00-0.03) X10*3/uL Absolute Neuts (auto) 7.8 (2.0-8.3) x10*3/uL Absolute Nucleated RBC 0.000 (0.0-0.012) X10*3/uL Nucleated RBC % (auto) 0.0 (0.0-0.2) /100WBC Sodium (135-145) mmol/L Potassium (3.3-5.1) mmol/L Chloride (96-108) mmol/L Carbon Dioxide (22-29) mmol/L Anion Gap (12-20) BUN (9-16) mg/dL Creatinine (0.5-1.4) mg/dL Estim Creat Clear Calc Estimated GFR Random Glucose (60-115) mg/dL Calcium (8.4-10.2) mg/dL Total Bilirubin (0.0-1.0) mg/dL AST (5-31) U/L ALT (0-31) U/L Alkaline Phosphatase (39-117) U/L Total Protein (6.5-8.0) g/dL Albumin (3.5-5.0) g/dL Urine Color Yellow Urine Appearance Clear Urine pH 6.5 (5.0-9.0) Ur Specific [place] 1.010 (1.005-1.025) Urine Protein 100 (2+) H (Neg-Trace) mg/dL Urine Glucose (UA) >=1000 H (Negative) mg/dL Urine Ketones Negative (Negative) mg/dL Urine Blood Negative (Negative) Urine Nitrite Negative (Negative) Ur Leukocyte Esterase Negative (Negative) Urine RBC 0-2 (0-2) /HPF Urine WBC 0-5 (0-5) /HPF Ur Squamous Epith Cells 3-5 (0-2) /HPF Urine Bacteria None Seen (None Seen) Hyaline Casts 0-2 (0-2) /LPF Urine Opiates Screen Not Detected (Not Detect) Urine Fentanyl Screen Not Detected (Not Detect) Ur Barbiturates Screen Not Detected (Not Detect) Ur Phencyclidine Scrn Not Detected (Not Detect) Ur Amphetamines Screen Not Detected (Not Detect) U Benzodiazepines Scrn Not Detected (Not Detect) [place] (0.60-1.20) mmol/L Urine Cocaine Screen Not Detected (Not Detect) U Marijuana (THC) Screen Not Detected (Not Detect) Ethyl Alcohol mg/dL 09/26/22 09/26/22 09/26/22 Range/Units 23:35 23:35 23:35 WBC (4.8-10.8) X10*3/uL RBC (4.20-5.50) X10*6/uL Hgb (12.0-16.0) g/dl Hct (37.0-47.0) % MCV (80.0-98.0) fL MCH (27.0-33.0) pg MCHC (31.0-35.0) g/dl RDW (11.0-16.0) % Plt Count (160-400) X10*3/uL MPV (9.4-12.3) fL Immature Gran % (Auto) (0.0-0.4) % Neut % (Auto) (45-73) % Lymph % (Auto) (20-40) % [place] % (Auto) (2-11) % Eos % (Auto) (0-4) % Baso % (Auto) (0-2) % Lymph # (Auto) (1.2-4.9) X10*3/uL [place] # (Auto) (0.1-1.2) X10*3/uL Eos # (Auto) (0.0-0.4) X10*3/uL Baso # (Auto) (0.0-0.2) X10*3/uL Abs Immat Gran (auto) (0.00-0.03) X10*3/uL Absolute Neuts (auto) (2.0-8.3) x10*3/uL Absolute Nucleated RBC (0.0-0.012) X10*3/uL Nucleated RBC % (auto) (0.0-0.2) /100WBC Sodium 137 (135-145) mmol/L Potassium 3.7 (3.3-5.1) mmol/L Chloride 105 (96-108) mmol/L Carbon Dioxide 21 L (22-29) mmol/L Anion Gap 15 (12-20) BUN 15 (9-16) mg/dL Creatinine 1.31 (0.5-1.4) mg/dL Estim Creat Clear Calc 66.6 Estimated GFR 45 Random Glucose 306 H (60-115) mg/dL Calcium 9.8 (8.4-10.2) mg/dL Total Bilirubin 0.3 (0.0-1.0) mg/dL AST 18 (5-31) U/L ALT 26 (0-31) U/L Alkaline Phosphatase 73 (39-117) U/L Total Protein 7.4 (6.5-8.0) g/dL Albumin 4.1 (3.5-5.0) g/dL Urine Color Urine Appearance Urine pH (5.0-9.0) Ur Specific [place] (1.005-1.025) Urine Protein (Neg-Trace) mg/dL Urine Glucose (UA) (Negative) mg/dL Urine Ketones (Negative) mg/dL Urine Blood (Negative) Urine Nitrite (Negative) Ur Leukocyte Esterase (Negative) Urine RBC (0-2) /HPF Urine WBC (0-5) /HPF Ur Squamous Epith Cells (0-2) /HPF Urine Bacteria (None Seen) Hyaline Casts (0-2) /LPF Urine Opiates Screen (Not Detect) Urine Fentanyl Screen (Not Detect) Ur Barbiturates Screen (Not Detect) Ur Phencyclidine Scrn (Not Detect) Ur Amphetamines Screen (Not Detect) U Benzodiazepines Scrn (Not Detect) [place] 0.28 L (0.60-1.20) mmol/L Urine Cocaine Screen (Not Detect) U Marijuana (THC) Screen (Not Detect) Ethyl Alcohol < 10 mg/dL Discharge Plan Discharge Clinical Impression: Schizoaffective disorder, bipolar type Patient Disposition: Still a Patient Prescriptions: No Action quetiapine 300 mg tablet 300 mg PO BEDTIME lorazepam 0.5 mg tablet 0.5 mg PO DAILY PRN (Reason: Anxiety) lithium carbonate 300 mg capsule 600 mg PO BID metformin 1,000 mg tablet 1,000 mg PO BID chlorpromazine 200 mg tablet 200 mg PO BEDTIME lisinopril 2.5 mg tablet 2.5 mg PO DAILY amlodipine 2.5 mg tablet 5 mg PO DAILY rosuvastatin 10 mg tablet 10 mg PO BEDTIME Jardiance 25 mg tablet 25 mg PO DAILY Rybelsus 3 mg tablet 3 mg PO QAM Interventions: [place]-Suicide Risk Severity Scale Last Done: 09/27/22 07:11
--- NOTE | 2022-09-26 21:40 | ECG_ITS ---
Test Reason : MEDICAL CLEARANCE Blood Pressure : / mmHG Vent. Rate : 105 BPM Atrial Rate : 105 BPM P-R Int : 184 ms QRS Dur : 080 ms QT Int : 354 ms P-R-T Axes : 053 043 077 degrees QTc Int : 467 ms Sinus tachycardia Septal infarct , age undetermined Abnormal ECG When compared with ECG of 13-NOV-2020 16:28, No significant change was found Referred By: Ortega Diaz Electronically Signed By:Favian Quiñones
[2022-09-26 21:41] VITALS: BMI 26.5
--- NOTE | 2022-09-26 22:07 | MHC.EDTECH ---
Patient refused care from this Tech RN is aware
[2022-09-26 22:18] LABS: Appearance Urine Clear; Color Urine Yellow; Glucose Urine UA >=1000 mg/dL (Negative); Leukocyte Esterase Urine Negative (Negative); Nitrite Urine Negative (Negative); PH 6.5 (5.0-9.0); UMIC TRIGGER UACC YES; Urine Blood Negative (Negative); Urine Ketones Negative (Negative); Urine Protein 100 (2+) mg/dL (Neg-Trace)
[2022-09-26 22:23] LABS: Bacteria Urine None Seen (None Seen); Hyaline Casts Urine 0-2 /LPF (0-2); RBC Urine 0-2 /HPF (0-2); WBC Urine 0-5 /HPF (0-5)
--- NOTE | 2022-09-26 22:28 | PC.NURSE ---
Pt refusing to have lab work or vitals done at this time. Provider aware.
[2022-09-26 22:49] LABS: Amphetamine Screen Urine Not Detected (Not Detect); Barbiturates, Urine Not Detected (Not Detect); Benzodiazepines Screen Urine Not Detected (Not Detect); Cannabinoid Screen Urine Not Detected (Not Detect); Cocaine Screen Urine Not Detected (Not Detect); Opiate Screen Urine Not Detected (Not Detect); Phencyclidine Screen Urine Not Detected (Not Detect)
[2022-09-26 22:56] LABS: Fentanyl, urine Not Detected (Not Detect)
[2022-09-26] MEDS: chlorproMAZINE HCl 100 MG TABLET 200 MG PO (23:21)
[2022-09-26] MEDS: Lithium Carbonate 300 MG CAPSULE 600 MG PO (23:21)
[2022-09-26] MEDS: Atorvastatin Calcium 40 MG TABLET PO (23:24)
[2022-09-26] MEDS: QUEtiapine Fumarate 300 MG TABLET PO (23:25)
[2022-09-26 23:48] LABS: MANUAL DIFF FLAG NO
[2022-09-26 23:49] LABS: Basophils Absolute Auto 0.1 X10*3/uL (0.0-0.2); Basophils Percent Auto 0.8 % (0-2); Eosinophils Absolute Auto 0.6 X10*3/uL (0.0-0.4); Eosinophils Percent Auto 4.8 % (0-4); Hematocrit 44.7 % (37.0-47.0); Hemoglobin 15.1 g/dl (12.0-16.0); Imm Gran Abs Auto 0.05 X10*3/uL (0.00-0.03); Imm Gran Pct Auto 0.4 % (0.0-0.4); Lymphocytes Absolute Auto 2.9 X10*3/uL (1.2-4.9); Mean Corpuscular HGB Conc 33.8 g/dl (31.0-35.0); Mean Corpuscular Volume 82.8 fL (80.0-98.0); Mean Platelet Volume 10.3 fL (9.4-12.3); Monocytes Absolute Auto 0.7 X10*3/uL (0.1-1.2); Monocytes Percent Auto 5.8 % (2-11); Neutrophils Absolute Auto 7.8 x10*3/uL (2.0-8.3); Neutrophils Percent Auto 64.2 % (45-73); Platelet Count 351 X10*3/uL (160-400); Red Cell Distribution Width 13.1 % (11.0-16.0); White Blood Count 12.1 X10*3/uL (4.8-10.8)
[2022-09-27 00:02] LABS: Lithium 0.28 mmol/L (0.60-1.20)
[2022-09-27 00:06] LABS: Ethanol < 10 mg/dL
[2022-09-27 00:10] LABS: Alanine Aminotransferase 26 U/L (0-31); Albumin Level 4.1 g/dL (3.5-5.0); Alkaline Phosphatase 73 U/L (39-117); Anion Gap 15 (12-20); Aspartate Amino Transferase 18 U/L (5-31); Bilirubin Total 0.3 mg/dL (0.0-1.0); Blood Urea Nitrogen 15 mg/dL (9-16); Calcium 9.8 mg/dL (8.4-10.2); Carbon Dioxide 21 mmol/L (22-29); Chloride 105 mmol/L (96-108); Creatinine Clr Calc Pharmacy 66.6; Estimated Glomerular Filt Rate 45; Glucose Random 306 mg/dL (60-115); Potassium 3.7 mmol/L (3.3-5.1); Sodium 137 mmol/L (135-145); Total Protein 7.4 g/dL (6.5-8.0)
[2022-09-27 02:12] VITALS: BP 129/86; PULSE 115; RESP 18; TEMP 36.7; O2SAT 96
[2022-09-27] MEDS: LORazepam 1 MG TABLET 2 MG PO (02:13)
--- NOTE | 2022-09-27 05:03 | PC.NURSE ---
Patient slept through the night, no distress observed/reported, med rec completed/ medication compliant, Ativan 2 mg administered at 0213, VSS, care consult ordered/pending evaluation, EKG pending because patient refused in main ED, behavior non concerning, labs completed/resulted, will continue to monitor.
[2022-09-27 07:49] VITALS: BP 136/81; PULSE 102; RESP 20; TEMP 36.2; O2SAT 93
[2022-09-27] MEDS: amLODIPine Besylate 5 MG TABLET PO (08:12)
[2022-09-27] MEDS: Lithium Carbonate 300 MG CAPSULE 600 MG PO (08:12)
[2022-09-27] MEDS: metFORMIN HCl 1,000 MG TABLET 1000 MG PO (08:12)
[2022-09-27] MEDS: lisinopriL 2.5 MG TABLET PO (08:12)
[2022-09-27 08:32] LABS: COVID-19 Test Negative (Negative); IDNOW Serial# BCCEAD1C
[2022-09-27] MEDS: Empagliflozin 25 MG TABLET PO (09:09)
--- NOTE | 2022-09-27 16:45 | MHC.CARE ---
Pt seen by CARE team and discharged back to [facility].
== END 2022-09-27 16:39 | disposition home or self-care (01) ==
PROVIDERS: Emergency Provider Internal Medicine; PCP Physician Assistant
DX: F25.0 Schizoaffective disorder, bipolar type (principal); F44.81 Dissociative identity disorder; F43.12 Post-traumatic stress disorder, chronic; Z79.899 Other long term (current) drug therapy
CPT/HCPCS: 36415; 80053; 80178; 80307; 81001; 85025; 87635; 93005; 99285; S9485

== ENCOUNTER 2023-07-12 15:24 | Inpatient (IN) | payer OTHER, SELFPAY ==
[2023-07-12 16:03] VITALS: BP 138/100; PULSE 103; RESP 20; TEMP 36.6; O2SAT 94; BMI 35.6
--- NOTE | 2023-07-12 16:53 | ED.PSYCH ---
HPI - Psych General Chief Complaint: Psychiatric Symptoms Stated Complaint: Crisis Time Seen by Provider: 07/12/23 16:05 Source: patient Mode of arrival: ambulatory Limitations: no limitations History of Present Illness HPI Narrative: Patient is a 43-year-old female who presents to the emergency department requesting assistance endorsing SI. She reports a longstanding history with mental health illness. She states that for the past 12 or 13 years she has remained in a intermediate setting due to her mental health diagnoses and auditory hallucinations. She endorses a suicide attempt in January of 2023, though she does not provide me any specific details in regards to this, she was ultimately transferred to a residential setting in [place] where she resided for 3 months. She reports while there she gave up her room at the intermediate and all her personal belongings? she states that she elected to have her car repossessed. She reports that suddenly she was discharged from this residential setting with no notice and no established care/therapist/psychiatry/plan for living situation. She states that this discharge happened in May. Since then she has been evaluated at multiple places including [facility], [facility], and states she has been seen at this hospital as well. She expresses great concern that she has been in 247 care for the past 12-13 years and can not reside on her own, she has been told that she should present to a fci for a place to stay which she does not feel capable of doing. She does endorse that she was just discharged earlier this afternoon from a [facility] in [place] after spending 6 days there, and feels as though she was treated poorly here. Additionally she reports increased stressors and difficulty managing her behaviors and composure as her brother who was the only family member she is close with suddenly 3 days ago. She does state that she best arrives in a residential setting and is interested in this type of care at this time. She is endorsing SI but she does not provide any specific details regarding this. She denies any HI. Related Data Home Medications ?Medication ?Instructions ?Recorded ?Confirmed lithium carbonate 300 mg capsule 600 mg PO BID 09/26/22 07/12/23 lorazepam 0.5 mg tablet 0.5 mg PO BID PRN Anxiety 09/26/22 07/12/23 metformin 1,000 mg tablet 1,000 mg PO BID 09/26/22 07/12/23 quetiapine 300 mg tablet 300 mg PO BEDTIME 09/26/22 09/26/22 rosuvastatin 10 mg tablet 10 mg PO BEDTIME 09/26/22 09/26/22 semaglutide 3 mg tablet (Rybelsus) 3 mg PO QAM 09/26/22 09/26/22 acetaminophen 325 mg tablet 650 mg PO QID pain or fever 07/12/23 07/12/23 amlodipine 10 mg tablet 10 mg PO DAILY 07/12/23 07/12/23 atorvastatin 40 mg tablet 40 mg PO BEDTIME 07/12/23 07/12/23 melatonin 3 mg capsule 6 mg PO BEDTIME PRN Sleep 07/12/23 07/12/23 quetiapine 25 mg tablet 25 PO TID 07/12/23 quetiapine 400 mg tablet 400 mg PO BEDTIME 07/12/23 07/12/23 Allergies Allergy/AdvReac Type Severity Reaction Status Date / Time lamotrigine [From Lamictal] Allergy Rash Verified 07/12/23 16:06 seafood Allergy Itching Verified 07/12/23 16:06 Review of Systems Review of Systems: Yes all other systems are reviewed and are negative PMFSH Past Medical History Attestation statement: The following information was validated with the patient. Source: old records reviewed Medical History Hyperlipemia Hypertension Type II diabetes mellitus Chronic post-traumatic stress disorder (PTSD) Schizoaffective disorder, bipolar type Social History Social History Household Members: Other Household Members Other:: Group Living Environment Housing: House Do you presently have visiting nurse or other home services: No Alcohol intake: never Patient Tobacco Use Status: Former Tobacco user Tobacco use type: Cigarette Smoked in Last 30 Days: No e-Cigarette/Vaping Use: Former Use Second Hand Smoke Exposure: Yes Use of substances other than those prescribed or required for medical reasons: No Substance Use Type: Marijuana Advance Directives: No Advance Directives Information Provided: No service: Yes Sexual orientation: Did not discuss Physical Exam Vital Signs: Vital Signs: Last Vital Signs Temp 97.8 F 07/12/23 16:03 Pulse 103 H 07/12/23 16:03 Resp 18 07/13/23 00:01 BP 138/100 H 07/12/23 16:03 Pulse Ox 94 07/12/23 16:03 O2 Del Method Room Air 07/12/23 16:03 BMI result Body Mass Index 35.6 Appearance: Alert.?Oriented to person, place and time. No acute distress.?Normal affect. Eyes: Pupils equal, round and reactive to light.? ENT: Pharynx normal.?? Neck: Normal inspection.? Neck supple.?? CVS: Heart sounds normal. Normal heart rate and rhythm.? Pulses normal.?? Respiratory: No respiratory distress.? Lung sounds clear to auscultation bilaterally?? Abdomen: Soft and non-tender. Normoactive bowel sounds. Skin: Skin warm and dry.? Normal skin color.? Extremities: No lower extremity edema. Neuro: Moves all extremities spontaneously. Sensation intact bilaterally. CN II-XII intact. No focal neuro deficits. Ambulates with normal steady gait. Medications Administered Generic Name Dose Route Start Last Admin Trade Name Freq PRN Reason Stop Dose Admin Acetaminophen 650 mg 07/12/23 21:00 07/12/23 20:10 Acetaminophen 325 Mg Tablet PO 650 mg QID CLAUDIA Administration Atorvastatin Calcium 40 mg 07/12/23 21:00 07/12/23 20:10 Atorvastatin Calcium 40 Mg Tablet PO 40 mg BEDTIME CLAUDIA Administration [place] Carbonate 600 mg 07/12/23 21:00 07/12/23 20:10 [place] Carbonate 300 Mg Capsule PO 600 mg BID CLAUDIA Administration Lorazepam 0.5 mg 07/12/23 19:04 07/12/23 19:16 Lorazepam 0.5 Mg Tablet PO 0.5 mg BID PRN Administration Anxiety Metformin HCl 1,000 mg 07/12/23 21:00 07/12/23 20:10 Metformin Hcl 1,000 Mg Tablet PO 1,000 mg BID CLAUDIA Administration Quetiapine Fumarate 400 mg 07/12/23 21:00 07/12/23 20:10 Quetiapine Fumarate 400 Mg Tablet PO 400 mg BEDTIME CLAUDIA Administration Medical Decision Making Medical Decision Making MDM Narrative: Patient is a 43-year-old female with past medical history of hyperlipidemia, hypertension, type 2 diabetes, PTSD, schizoaffective disorder, bipolar disorder presenting to emergency department for evaluation of suicidal ideations with increased life stressors as per HPI. She does not provide me any specific plan this time, and denies any drug or alcohol usage, denies homicidal ideations. She is requesting crisis evaluation at this time as per HPI. She is mildly hyperverbal but does appear to have a clear train of thought, expressing significant stress surrounding her disposition and treatment since being discharged from the reported residential service in May of this year. Plan to obtain labs for medical clearance and refer to care team for evaluation and safe disposition, determination as to whether inpatient psychiatric care is permitted at this time. Differential Diagnosis Differential Diagnoses: The differential diagnosis associated with the presentation includes (Bipolar disorder, decompensated schizoaffective disorder, PTSD, anxiety) Admission/Observation Consideration of admission/observation: Escalation of care including admission/observation considered (See narrative above and course narrative for further detail) Evaluated by care team, voluntary inpatient bed search, pending [facility] morning Consult Healthcare Provider Management of the patient was discussed with: Behavioral Health Provider Lab Data MDM Lab Attestation statement: I reviewed the patient's lab results. CBC reveals a mild leukocytosis, no electrolyte derangement, no GHASSAN, overall unremarkable transaminases. Urinalysis without compelling evidence of infection; 4+ urine bacteria, significant squamous epithelial cells, no urinary symptoms. [place] level is within normal range. JUAN and ethanol levels are negative. 07/12/23 17:32 07/12/23 17:32 Labs: Lab Results 07/12/23 07/12/23 Range/Units 17:32 18:03 WBC 11.1 H (4.8-10.8) X10*3/uL RBC 5.37 (4.20-5.50) X10*6/uL Hgb 15.3 (12.0-16.0) g/dl Hct 44.7 (37.0-47.0) % MCV 83.2 (80.0-98.0) fL MCH 28.5 (27.0-33.0) pg MCHC 34.2 (31.0-35.0) g/dl RDW 12.1 (11.0-16.0) % Plt Count 361 (160-400) X10*3/uL MPV 10.2 (9.4-12.3) fL Immature Gran % (Auto) 0.6 H (0.0-0.4) % Neut % (Auto) 69.4 (45-73) % Lymph % (Auto) 19.5 L (20-40) % Morgan % (Auto) 4.8 (2-11) % Eos % (Auto) 4.7 H (0-4) % Baso % (Auto) 1.0 (0-2) % Lymph # (Auto) 2.2 (1.2-4.9) X10*3/uL Morgan # (Auto) 0.5 (0.1-1.2) X10*3/uL Eos # (Auto) 0.5 H (0.0-0.4) X10*3/uL Baso # (Auto) 0.1 (0.0-0.2) X10*3/uL Abs Immat Gran (auto) 0.07 H (0.00-0.03) X10*3/uL Absolute Neuts (auto) 7.7 (2.0-8.3) x10*3/uL Absolute Nucleated RBC 0.000 (0.0-0.012) X10*3/uL Nucleated RBC % (auto) 0.0 (0.0-0.2) /100WBC Sodium 135 (135-145) mmol/L Potassium 3.8 (3.3-5.1) mmol/L Chloride 105 (96-108) mmol/L Carbon Dioxide 23 (22-29) mmol/L Anion Gap 11 L (12-20) BUN 14 (9-16) mg/dL Creatinine 0.93 (0.5-1.4) mg/dL Estim Creat Clear Calc 117.2 Estimated GFR > 60 Fasting Glucose 182 H (60-99) mg/dL Calcium 10.1 (8.4-10.2) mg/dL Total Bilirubin 0.3 (0.0-1.0) mg/dL AST 24 (5-31) U/L ALT 36 H (0-31) U/L Alkaline Phosphatase 74 (39-117) U/L Total Protein 7.1 (6.5-8.0) g/dL Albumin 3.8 (3.5-5.0) g/dL Urine Color Yellow Urine Appearance Cloudy Urine pH 6.5 (5.0-9.0) Ur Specific Spencer 1.015 (1.005-1.025) Urine Protein >=1000 (4+) H (Neg-Trace) mg/dL Urine Glucose (UA) Negative (Negative) mg/dL Urine Ketones Negative (Negative) mg/dL Urine Blood Negative (Negative) Urine Nitrite Negative (Negative) Ur Leukocyte Esterase Negative (Negative) Urine RBC 0-2 (0-2) /HPF Urine WBC 0-5 (0-5) /HPF Ur Squamous Epith Cells >20 (0-2) /HPF Urine Bacteria 4+ (None Seen) Hyaline Casts 0-2 (0-2) /LPF Salicylates < 5.0 L (15-30) mg/dL Urine Opiates Screen Not Detected (Not Detect) Urine Fentanyl Screen Not Detected (Not Detect) Ur Barbiturates Screen Not Detected (Not Detect) Ur Phencyclidine Scrn Not Detected (Not Detect) Ur Amphetamines Screen Not Detected (Not Detect) U Benzodiazepines Scrn Not Detected (Not Detect) [place] 1.06 (0.60-1.20) mmol/L Urine Cocaine Screen Not Detected (Not Detect) U Marijuana (THC) Screen Not Detected (Not Detect) Ethyl Alcohol < 10 mg/dL External Record Review External record reviewed: Inpatient record Social Determinants Patient?s care significantly limited by Social Determinants of Health including: Other Social Determinant of Health (See narrative above) Discharge Plan Discharge Clinical Impression: Suicidal ideation, Schizoaffective disorder, bipolar type Patient Disposition: Still a Patient Prescriptions: No Action quetiapine 300 mg tablet 300 mg PO BEDTIME lorazepam 0.5 mg tablet 0.5 mg PO BID PRN (Reason: Anxiety) Rx Instructions: PRN for anxiety lithium carbonate 300 mg capsule 600 mg PO BID metformin 1,000 mg tablet 1,000 mg PO BID rosuvastatin 10 mg tablet 10 mg PO BEDTIME Rybelsus 3 mg tablet 3 mg PO QAM quetiapine 25 mg tablet 25 PO TID Rx Instructions: PRN atorvastatin 40 mg tablet 40 mg PO BEDTIME amlodipine 10 mg tablet 10 mg PO DAILY Rx Instructions: no grapefruit juice quetiapine 400 mg tablet 400 mg PO BEDTIME acetaminophen 325 mg Tablet 650 mg PO QID Rx Instructions: PRN melatonin 3 mg Capsule 6 mg PO BEDTIME PRN (Reason: Sleep) Interventions: [place]-Suicide Risk Severity Scale Last Done: 07/12/23 16:07 Print Language: [place] Islander
[2023-07-12 17:40] LABS: MANUAL DIFF FLAG NO
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
[2023-07-12 17:50] LABS: Basophils Absolute Auto 0.1 X10*3/uL (0.0-0.2); Eosinophils Absolute Auto 0.5 X10*3/uL (0.0-0.4); Eosinophils Percent Auto 4.7 % (0-4); Hematocrit 44.7 % (37.0-47.0); Hemoglobin 15.3 g/dl (12.0-16.0); Imm Gran Abs Auto 0.07 X10*3/uL (0.00-0.03); Imm Gran Pct Auto 0.6 % (0.0-0.4); Lymphocytes Absolute Auto 2.2 X10*3/uL (1.2-4.9); Lymphocytes Percent Auto 19.5 % (20-40); Mean Corpuscular HGB Conc 34.2 g/dl (31.0-35.0); Mean Corpuscular Hemoglobin 28.5 pg (27.0-33.0); Mean Corpuscular Volume 83.2 fL (80.0-98.0); Mean Platelet Volume 10.2 fL (9.4-12.3); Monocytes Absolute Auto 0.5 X10*3/uL (0.1-1.2); Monocytes Percent Auto 4.8 % (2-11); Neutrophils Absolute Auto 7.7 x10*3/uL (2.0-8.3); Neutrophils Percent Auto 69.4 % (45-73); Platelet Count 361 X10*3/uL (160-400); Red Blood Count 5.37 X10*6/uL (4.20-5.50); Red Cell Distribution Width 12.1 % (11.0-16.0); White Blood Count 11.1 X10*3/uL (4.8-10.8)
[2023-07-12 17:57] LABS: Lithium 1.06 mmol/L (0.60-1.20)
[2023-07-12 18:04] LABS: Salicylate < 5.0 mg/dL (15-30)
[2023-07-12 18:08] LABS: Alanine Aminotransferase 36 U/L (0-31); Albumin Level 3.8 g/dL (3.5-5.0); Alkaline Phosphatase 74 U/L (39-117); Anion Gap 11 (12-20); Aspartate Amino Transferase 24 U/L (5-31); Bilirubin Total 0.3 mg/dL (0.0-1.0); Blood Urea Nitrogen 14 mg/dL (9-16); Calcium 10.1 mg/dL (8.4-10.2); Carbon Dioxide 23 mmol/L (22-29); Chloride 105 mmol/L (96-108); Creatinine Clr Calc Pharmacy 117.2; Estimated Glomerular Filt Rate > 60; Ethanol < 10 mg/dL; Glucose Fasting 182 mg/dL (60-99); Potassium 3.8 mmol/L (3.3-5.1); Sodium 135 mmol/L (135-145); Total Protein 7.1 g/dL (6.5-8.0)
[2023-07-12 18:09] LABS: Appearance Urine Cloudy; Color Urine Yellow; Glucose Urine UA Negative (Negative); Leukocyte Esterase Urine Negative (Negative); Nitrite Urine Negative (Negative); PH 6.5 (5.0-9.0); Specific Gravity - Urine 1.015 (1.005-1.025); UMIC TRIGGER UACC YES; Urine Blood Negative (Negative); Urine Ketones Negative (Negative); Urine Protein >=1000 (4+) mg/dL (Neg-Trace)
[2023-07-12 18:11] LABS: Bacteria Urine 4+ (None Seen); Hyaline Casts Urine 0-2 /LPF (0-2); RBC Urine 0-2 /HPF (0-2); Squamous Epithelial Cell Urine >20 /HPF (0-2); WBC Urine 0-5 /HPF (0-5)
[2023-07-12] MEDS: LORazepam 0.5 MG TABLET PO (19:16)
[2023-07-12 19:18] LABS: Amphetamine Screen Urine Not Detected (Not Detect); Barbiturates, Urine Not Detected (Not Detect); Benzodiazepines Screen Urine Not Detected (Not Detect); Cannabinoid Screen Urine Not Detected (Not Detect); Cocaine Screen Urine Not Detected (Not Detect); Fentanyl, urine Not Detected (Not Detect); Opiate Screen Urine Not Detected (Not Detect); Phencyclidine Screen Urine Not Detected (Not Detect)
--- NOTE | 2023-07-12 19:52 | PC.NURSE ---
Assumed care of patient at 1900, patient currently sitting milieu watching TV, appears paranoid to an extent, reporting that she is suspicious of people and things that are going on. Patient attempted to use the phone to call [phone]. This RN attempted to educate patient regarding accessibility to social workers here however patient fixated on being able to call [phone]. Patient was offered PRN Ativan, which she took willingly without issue. Patient ambulating around BH pod with steady gait, speaking in clear but tangential sentences, respirations even and unlabored, no apparent distress is noted at this time. patient does endorse paranoia, anxiety and occasional suicidal thoughts without a clear plan. she reports very clear auditory hallucinations telling her that there is a higher power that will cause her to harm herself. Currently talking with Luis Alberto, CARE team at this time
[2023-07-12] MEDS: Atorvastatin Calcium 40 MG TABLET PO (20:10)
[2023-07-12] MEDS: Acetaminophen 325 MG TABLET 650 MG PO (20:10)
[2023-07-12] MEDS: Lithium Carbonate 300 MG CAPSULE 600 MG PO (20:10)
[2023-07-12] MEDS: metFORMIN HCl 1,000 MG TABLET 1000 MG PO (20:10)
[2023-07-12] MEDS: QUEtiapine Fumarate 400 MG TABLET PO (20:10)
--- NOTE | 2023-07-13 | ECG_ITS ---
Test Reason : qt interval Blood Pressure : / mmHG Vent. Rate : 091 BPM Atrial Rate : 091 BPM P-R Int : 212 ms QRS Dur : 084 ms QT Int : 388 ms P-R-T Axes : 058 033 087 degrees QTc Int : 477 ms Sinus rhythm with 1st degree A-V block Otherwise normal ECG When compared with ECG of 27-SEP-2022 06:05, Criteria for Septal infarct are no longer Present Referred By: Ortega Diaz Electronically Signed By:Favian Quiñones
[2023-07-13 00:01] VITALS: RESP 18
--- NOTE | 2023-07-13 00:02 | MHC.EDTECH ---
This tech took over care of patient at 2300, patient is sleeping at this time,Resp,Rate WNL,RN aware
--- NOTE | 2023-07-13 03:58 | MHC.EDTECH ---
Patient is asleep at this time,resp. rate is wnl,sitter at bedside for safety
[2023-07-13 06:00] VITALS: RESP 16
--- NOTE | 2023-07-13 06:24 | MHC.EDTECH ---
Attempted to get a full set of vitals,patient refused,RN is aware. sitter at bedside
--- NOTE | 2023-07-13 08:44 | PC.NURSE ---
this RN resumed care of pt at 0715. pt moved over from main ED at this time. pt escorted to pod w/ security and building services technicianWayne cruz. pt currently a&ox4. pt has been pacing back and forth/using [facility]. pt sitting in mileu having conversations out loud w/ herself intermittently. pt currently denies SI/HI but is having auditory hallucinations/conversations w/ the voices which she refers to as Branden and The Devil. pt denies any visual/tactile hallucinations. pt states that she is not currently feeling suicidal but states she feels that the thoughts of harming herself increase when she is walking on the street with a suitcase and the voices. pt states that the voices are telling her to kill herself, that the voices are going to kill someone else, the voices killed her brother, and that they are God. this RN informed pt that she is safe here. admissions called this RN to state that pt is being presented for inpatient admission at this time. covid swab/ekg performed by tech. pt calm/cooperative throughout process. no sob/wob noted. respirations even and unlabored. plan of care ongoing.
[2023-07-13 08:59] LABS: COVID-19 Test Negative (Negative); IDNOW Serial# 08D9AD1C
--- NOTE | 2023-07-13 09:00 | MHC.CARE ---
Per Amy Slaughter at the CO, Patient was at the CO for about a week/ 6 days. No medication changes occurred while [facility], they continued the meds prescribed by [facility], where she was allegedly admitted for over a month. Prior to the [facility] admit she had been utilizing [facility] in [place] but elected to leave because that fci is in a [facility]. While at the CO she requested referral to [facility]. Per Amy, Dr Miles noted that patient is at chronic elevated risk of self harm due to borderline personality d/o w symptoms of self harm gesture, threats and impulsivity as well as mood lability. 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 Hx of deteriorating on their unit. Reports chronic AH for over a decade and reports that patient has not responded to to any of the antipsychotic treatments she has been trialed on. AH are her baseline, per [facility] provider. Mood disturbances are reported as due to underlying personality d/o. Noted to make SI statements in the same discussion as making future orientation statements. Per Bindu, the correctional casework specialist at the CO [phone], whom patient recently fired: Bindu began working with the patient in early April, as patient was seeking a residential program for dissociative disorders / trauma. The [facility] has attempted to get her into programs that approximate her request, including offering to fill out applications to programs in [place] and [place], which she ultimately declines when they are nearing a decision and then declines to use the [facility]. Bindu reports that patient was in a NH program through the [facility], which ultimately wound up not being approved for VA funding. She returned to [place], admitted to [facility]. Bindu reports historically it is a struggle to develop a discharge plan due to patient's resistance. She allegedly insists on programs that don't quite exactly exist to her specifications. This last admission to the [facility], the [facility] her to [facility], but they denied her. She is described by Lakeshia as staff splitting often, particularly when given information / referrals and planning that she is not interested in it. Bindu reports that patient lived on the [facility] in [place] for years, which is not what that program was designed for. She was also at [facility] for over a year however she struggled with other residents/ shared rooms. She frequently fixates on Hinduism and belief that she is Jainism and conflicts arise from this, instigated by patient. She has been assigned a new Wig Stylist, after having fired [facility]. This new [facility] correctional casework specialist/ housekeeper child care is Zak Billingsley [phone]
[2023-07-13] MEDS: amLODIPine Besylate 10 MG TABLET PO (09:36)
[2023-07-13] MEDS: metFORMIN HCl 1,000 MG TABLET 1000 MG PO ×2 (09:36→20:15)
[2023-07-13] MEDS: Lithium Carbonate 300 MG CAPSULE 600 MG PO ×2 (09:36→20:16)
[2023-07-13] MEDS: Acetaminophen 325 MG TABLET 650 MG PO ×3 (09:36→20:16)
--- NOTE | 2023-07-13 10:43 | PC.NURSE ---
pt continues to sit in milieu at this time while watching tv/drinking water. pt continuously having intermittent conversations aloud to herself. pt currently endorsing SI at this time but has no specific plan. pt had sudden outburst where she yelled out loud - i'm going to kill myself and you can't stop me! when approaching the pt, pt calm/cooperative. pt stating that auditory hallucinations are present and that the voices are bothering her. pt denies HI at this time. Executive Administrator Joe speaking w/ pt in milieu at this time. pt remains pending inpatient admission. respirations remain even and unlabored. plan of care ongoing.
[2023-07-13 14:47] VITALS: BP 141/85; PULSE 86; RESP 18; TEMP 36.8; O2SAT 98
--- NOTE | 2023-07-13 15:07 | PC.NURSE ---
report given to RILEY Ferreira on M5 at this time. pt's belongings returned to pt. pt being transported upstairs w/ M5 tech and security at this time.
[2023-07-13 15:24] VITALS: BP 148/91; PULSE 94; RESP 16; TEMP 36.8; O2SAT 98
--- NOTE | 2023-07-13 15:27 | PC.NURSE ---
pt arrived on the unit @ 1505 via wheelchair on a CV. Safety check performed and vitals recorded. Pt oriented to the unit and placed on 15min checks for safety. Admission to be completed.
[2023-07-13 17:52] VITALS: BP 159/102; PULSE 92; RESP 18; TEMP 36.8; O2SAT 98
--- NOTE | 2023-07-13 18:00 | PC.ADMIT ---
Pt arrived to the unit at 1505. Pt is a CV. Placed on 15 minute safety checks. oil recovery operator completed by kathleen LIN. Pt arrived to the ED after having SI. Pt reports having increased AH that tell her You're not loved. I'm going to torture you . Pt reports thinking the voices could possibly be God. Pt has had suicide attempt in 2022. Pt reports that she occasionally has CAH. Pt's brother also recently 3 days ago which has been an added life stressor. Pt hyperverbal, disorganized, paranoid, delusional. Pt reports multiple inpatient admissions. Pt was recently discharged from the [facility] in [place]. Pt has resided in group homes for the majority of her adult life. Pt currently homeless. Pt has no outpatient providers at this time. Admission completed. Legals signed. Treatment plan & safety tool completed. JUAN negative. Covid negative. EKG completed in ER. Pt oriented to unit. Pt is a former smoker. Declined Flu vaccine.
[2023-07-13] MEDS: QUEtiapine Fumarate 400 MG TABLET PO (20:15)
[2023-07-13] MEDS: Atorvastatin Calcium 40 MG TABLET PO (20:15)
[2023-07-13] MEDS: traZODone HCL 50 MG TABLET PO (20:16)
[2023-07-14 08:18] VITALS: BP 162/111; PULSE 96; RESP 18; TEMP 36.9; O2SAT 96
[2023-07-14] MEDS: metFORMIN HCl 1,000 MG TABLET 1000 MG PO ×2 (08:56→20:38)
[2023-07-14] MEDS: amLODIPine Besylate 10 MG TABLET PO (08:56)
[2023-07-14] MEDS: Lithium Carbonate 300 MG CAPSULE 600 MG PO ×2 (08:56→20:38)
[2023-07-14 14:39] LABS: Estimated Average Glucose 183 mg/dL
[2023-07-14 14:51] LABS: HCG Quantitative < 2 mIU/mL
[2023-07-14 15:05] LABS: Alanine Aminotransferase 35 U/L (0-31); Albumin Level 3.7 g/dL (3.5-5.0); Alkaline Phosphatase 72 U/L (39-117); Anion Gap 12 (12-20); Aspartate Amino Transferase 25 U/L (5-31); Bilirubin Total 0.2 mg/dL (0.0-1.0); Blood Urea Nitrogen 13 mg/dL (9-16); Calcium 11.2 mg/dL (8.4-10.2); Carbon Dioxide 26 mmol/L (22-29); Chloride 103 mmol/L (96-108); Cholesterol 140 mg/dL (<200); Creatinine Clr Calc Pharmacy 115.9; Estimated Glomerular Filt Rate > 60; Glucose Fasting 238 mg/dL (60-99); HDL Cholesterol 38 mg/dL (>40); LDL Cholesterol Calculated 42 mg/dL (<100); Sodium 137 mmol/L (135-145); TSH reflex Free T4 2.05 uIU/mL (0.32-4.0); Total Protein 7.1 g/dL (6.5-8.0); Triglycerides 302 mg/dL (<150)
[2023-07-14 18:00] VITALS: BP 137/91; PULSE 88; RESP 17; TEMP 36.6; O2SAT 88
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
[2023-07-14] MEDS: Atorvastatin Calcium 40 MG TABLET PO (20:38)
[2023-07-14] MEDS: QUEtiapine Fumarate 400 MG TABLET PO (20:38)
[2023-07-14] MEDS: traZODone HCL 50 MG TABLET PO (20:41)
[2023-07-14] MEDS: OLANZapine 5 MG TABLET PO (20:41)
[2023-07-15] MEDS: hydrOXYzine HCL 25 MG TABLET PO (04:09)
[2023-07-15 08:46] VITALS: BP 119/67; PULSE 94; RESP 17; TEMP 36.6; O2SAT 97
[2023-07-15] MEDS: amLODIPine Besylate 10 MG TABLET PO (09:10)
[2023-07-15] MEDS: metFORMIN HCl 1,000 MG TABLET 1000 MG PO ×2 (09:10→20:50)
[2023-07-15] MEDS: Lithium Carbonate 300 MG CAPSULE 600 MG PO ×2 (09:10→20:50)
[2023-07-15] MEDS: LORazepam 0.5 MG TABLET PO (16:08)
[2023-07-15] MEDS: OLANZapine 5 MG TABLET PO (16:08)
--- NOTE | 2023-07-15 16:57 | PC.NURSE ---
Pt coming up to medication window reporting that she is hearing a voice telling her that they connected to [employer] and various politicians and she was feeling anxious. Pt offered and accepted zyprexa and ativan. Listening to headphones and in kitchen watching TV with peers
[2023-07-15 18:00] VITALS: RESP 18
[2023-07-15] MEDS: QUEtiapine Fumarate 400 MG TABLET PO (20:50)
[2023-07-15] MEDS: Atorvastatin Calcium 40 MG TABLET PO (20:50)
[2023-07-15] MEDS: Milk of Magnesia 30 ML ORAL.SUSP PO (21:39)
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
[2023-07-16 08:20] VITALS: BP 129/87; PULSE 84; RESP 17; TEMP 36.7; O2SAT 97
[2023-07-16] MEDS: amLODIPine Besylate 10 MG TABLET PO (08:33)
[2023-07-16] MEDS: Lithium Carbonate 300 MG CAPSULE 600 MG PO ×2 (08:33→21:16)
[2023-07-16] MEDS: metFORMIN HCl 1,000 MG TABLET 1000 MG PO ×2 (08:34→21:16)
[2023-07-16] MEDS: Milk of Magnesia 30 ML ORAL.SUSP PO (08:35)
[2023-07-16 18:00] VITALS: BP 140/79; PULSE 98; RESP 19; TEMP 36.9; O2SAT 98
[2023-07-16] MEDS: hydrOXYzine HCL 25 MG TABLET PO (18:48)
[2023-07-16] MEDS: LORazepam 0.5 MG TABLET PO (18:48)
--- NOTE | 2023-07-16 19:23 | PC.NURSE ---
Pt cooperative with care and medications. Pleasant and asking for prns for anxiety. Requested something for constipation as MOM has not helped her. Informed management liaison provider
[2023-07-16] MEDS: QUEtiapine Fumarate 400 MG TABLET PO (21:16)
[2023-07-16] MEDS: traZODone HCL 50 MG TABLET PO (21:16)
[2023-07-16] MEDS: Atorvastatin Calcium 40 MG TABLET PO (21:16)
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
[2023-07-17 08:19] VITALS: BP 166/99; PULSE 83; RESP 18; TEMP 37.2; O2SAT 98
[2023-07-17] MEDS: metFORMIN HCl 1,000 MG TABLET 1000 MG PO ×2 (08:28→21:59)
[2023-07-17] MEDS: amLODIPine Besylate 10 MG TABLET PO (08:28)
[2023-07-17] MEDS: Lithium Carbonate 300 MG CAPSULE 600 MG PO ×2 (08:28→22:00)
--- NOTE | 2023-07-17 09:50 | HO.PSYCHPN ---
Subjective Subjective Date of Service: 07/17/23 Reason For Visit: Decompensation Subjective Notes: Conditional Voluntary Medical Problems Affecting Mental Status: No Interim History: 43 yo reports she has DID doesn't know how many personalities she has- wants to go to [facility] for their famous ability with PTSD- Pt recently on 4th consecutive hospitalization- [place] [facility] then here- ongoing si no plan- has a recent book on table next to her on anxiety managment strategies- provider strongly encouraged using it Medication Compliance: Yes Side effects from medications: Yes (constipation) Attending Groups: Intermittent Review of Systems Acute medical concerns: No Medical Review of Systems: changed (constipation) Mental Status Exam Mental Status Exam Patient Appearance: Unkempt Patient Orientation: Person, Place, Time and Situation Level of Consciousness: Awake Patient Behavior: Appropriate, Talkative, Cooperative and Poor Eye Contact Mood Description: Anxious Affect Description: Blunted and Apprehensive Patient Cognition Impaired: No Ability to Follow Directions: Fair Speech Pattern: Clear Hallucinations: Auditory ( weird ones over weekend) Thought Process: Intact Thought Content: positive for Goal Oriented and positive for Perseveration Depressive Symptoms: Increased Anxiety and Muscle Tension Judgement: Fair Diagnostics Vital Signs (24Hr): Vital Signs - 24 hr 07/16/23 18:00 07/17/23 08:19 Temperature 98.5 F 99 F Pulse Rate 98 83 Respiratory Rate 19 18 Blood Pressure 140/79 H 166/99 H Pulse Oximetry 98 98 Oxygen Delivery Method Room Air Room Air BMI result Body Mass Index 35.6 Labs 07/12/23 17:32 07/14/23 14:18 Medications Medications Current Medications Acetaminophen (Acetaminophen 325 Mg Tablet) 650 mg PO Q6H PRN PRN Reason: Headache/Pain Mild Scale (1-3) Al Hydroxide/Mg Hydroxide (Magnesium Hydrox/Alum Hydrox 30 Ml Oral.Susp) 30 ml PO Q6H PRN PRN Reason: Heartburn/Nausea Amlodipine Besylate (Amlodipine Besylate 10 Mg Tablet) 10 mg PO DAILY [facility]; Protocol Last Admin: 07/17/23 08:28 Dose: 10 mg Atorvastatin Calcium (Atorvastatin Calcium 40 Mg Tablet) 40 mg PO BEDTIME [facility]UD[facility] Last Admin: 07/16/23 21:16 Dose: 40 mg Hydroxyzine HCl (Hydroxyzine Hcl 25 Mg Tablet) 25 mg PO Q6H PRN PRN Reason: Anxiety Last Admin: 07/16/23 18:48 Dose: 25 mg [place] Carbonate (Melrose Carbonate 300 Mg Capsule) 600 mg PO BID CLAUDIA Last Admin: 07/17/23 08:28 Dose: 600 mg Lorazepam (Lorazepam 0.5 Mg Tablet) 0.5 mg PO BID PRN PRN Reason: Anxiety Last Admin: 07/16/23 18:48 Dose: 0.5 mg Magnesium Hydroxide (Milk Of Magnesia 30 Ml Oral.Susp) 30 ml PO DAILY PRN PRN Reason: Constipation Last Admin: 07/16/23 08:35 Dose: 30 ml Melatonin (Melatonin 3 Mg Tablet) 6 mg PO BEDTIME PRN PRN Reason: Sleep Metformin HCl (Metformin Hcl 1,000 Mg Tablet) 1,000 mg PO BID [facility] Last Admin: 07/17/23 08:28 Dose: 1,000 mg Nicotine (Nicotine 21 Mg Patch.Td24) 21 mg TRANSDERMA DAILY PRN PRN Reason: smoking cessation Nicotine Polacrilex (Nicotine Polacrilex 2 Mg Gum) 4 mg BUCCAL Q2H PRN PRN Reason: Nicotine Cravings Olanzapine (Olanzapine 5 Mg Tablet) 5 mg PO TID PRN PRN Reason: agitation Last Admin: 07/15/23 16:08 Dose: 5 mg Quetiapine Fumarate (Quetiapine Fumarate 400 Mg Tablet) 400 mg PO BEDTIME [facility]UD[facility] Last Admin: 07/16/23 21:16 Dose: 400 mg Trazodone HCl (Trazodone Hcl 50 Mg Tablet) 50 mg PO BEDTIME MRX1 PRN PRN Reason: Insomnia Last Admin: 07/16/23 21:16 Dose: 50 mg Allergies Allergies Allergy/AdvReac Type Severity Reaction Status Date / Time lamotrigine [From Lamictal] Allergy Rash Verified 07/12/23 16:06 seafood Allergy Itching Verified 07/12/23 16:06 Assessment & Plan Assessment & Plan (1) Schizoaffective disorder, bipolar type: Status: Chronic Code(s): F25.0 - Schizoaffective disorder, bipolar type (2) Chronic post-traumatic stress disorder (PTSD): Status: Chronic Code(s): F43.12 - Post-traumatic stress disorder, chronic Plan 07/16 - Continue current medications referred to anxiety management strategies- unclear given comorbidities with her ptsd if she would qualify or insurance would cover residential care- - Patient educated on: therapeutic strategies and other Informed Consent: further education needed Reason for continued inpatient stay Substantial Risk for: harm to self and rapid decompensation Time Spent With Patient Time: Total time managing care of this patient today ____ minutes.
[2023-07-17] MEDS: bisacodyL 5 MG TABLET.DR PO (15:01)
[2023-07-17 18:00] VITALS: BP 141/91; PULSE 87; TEMP 37.2; O2SAT 98
[2023-07-17] MEDS: QUEtiapine Fumarate 400 MG TABLET PO (21:59)
[2023-07-17] MEDS: Atorvastatin Calcium 40 MG TABLET PO (22:00)
[2023-07-17] MEDS: Milk of Magnesia 30 ML ORAL.SUSP PO (22:12)
[2023-07-17] MEDS: traZODone HCL 50 MG TABLET PO (22:12)
[2023-07-18 09:13] VITALS: BP 134/81; PULSE 87; RESP 19; TEMP 36.6; O2SAT 98
[2023-07-18 09:17] VITALS: BP 134/81
[2023-07-18] MEDS: metFORMIN HCl 1,000 MG TABLET 1000 MG PO ×2 (09:17→21:17)
[2023-07-18] MEDS: Lithium Carbonate 300 MG CAPSULE 600 MG PO ×2 (09:17→21:16)
[2023-07-18] MEDS: amLODIPine Besylate 10 MG TABLET PO (09:17)
[2023-07-18] MEDS: Milk of Magnesia 30 ML ORAL.SUSP PO (13:28)
[2023-07-18 16:30] VITALS: BP 157/113; PULSE 86; RESP 20; TEMP 36.9; O2SAT 96
--- NOTE | 2023-07-18 17:01 | PC.NURSE ---
Pt reports that she realizes she would benefit from attending a support group for those who suffer from PTSD and trauma. It was discussed that she can ask to speak with social media project manager to provide resources and opportunities while still [place] and when DC'd.
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
[2023-07-18] MEDS: QUEtiapine Fumarate 400 MG TABLET PO (21:17)
[2023-07-18] MEDS: Atorvastatin Calcium 40 MG TABLET PO (21:17)
[2023-07-18] MEDS: Melatonin 3 MG TABLET 6 MG PO (21:17)
[2023-07-18] MEDS: traZODone HCL 50 MG TABLET PO (21:18)
--- NOTE | 2023-07-19 02:16 | PC.NURSE ---
Patient requested a staff member talk to her at approximately 1:50 am. Other staff were busy so this information writer sat with patient in group room B to talk. Patient expressed frustration, stating I'm ready to heal and get better, but I have no stability right now. I have thirty thousand dollars, but the bank won't help me get any of it. I can't heal if I don't know where I'm going to live. Patient also stated I'm so tired, I feel cursed. I've been hearing this voice for so long now, I just wish I could get some rest. When I hear it, I like to be around other people because then it's easier to ignore it. I can't do that if I'm alone in a room. I'm just so tired of it. I just want to heal. Patient reiterated the aforementioned points, circling back repetitively. Patient stated I want to tell my social media specialist that I'm sick of this state, I think I can get more help if I'm not in this state. Make sure they know that. When this information writer asked the patient what could help at the time of the conversation, patient stated Just this. Talking helps me a lot. Patient exhausted herself quickly, laying down on the bed and closing her eyes while her speech became quieter and finally patient seemingly drifted off to sleep.
[2023-07-19 06:00] VITALS: BP 137/64; PULSE 89; RESP 20; TEMP 36.8; O2SAT 97
[2023-07-19 08:19] LABS: Creatinine Clr Calc Pharmacy 117.2; Estimated Glomerular Filt Rate > 60
[2023-07-19 09:06] VITALS: BP 128/86
[2023-07-19] MEDS: amLODIPine Besylate 10 MG TABLET PO (09:06)
[2023-07-19] MEDS: Lithium Carbonate 300 MG CAPSULE 600 MG PO ×2 (09:07→20:05)
[2023-07-19] MEDS: metFORMIN HCl 1,000 MG TABLET 1000 MG PO ×2 (09:07→20:05)
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
[2023-07-19] MEDS: bisacodyL 5 MG TABLET.DR PO (12:08)
[2023-07-19] MEDS: Milk of Magnesia 30 ML ORAL.SUSP PO (18:53)
[2023-07-19 20:00] VITALS: BP 180/113; PULSE 84; RESP 20; TEMP 36.9; O2SAT 98
[2023-07-19] MEDS: Atorvastatin Calcium 40 MG TABLET PO (20:06)
[2023-07-19] MEDS: hydrOXYzine HCL 25 MG TABLET PO (20:06)
[2023-07-19] MEDS: QUEtiapine Fumarate 400 MG TABLET PO (20:06)
[2023-07-20 08:19] VITALS: BP 112/56; PULSE 79; RESP 18; TEMP 36.7; O2SAT 96
[2023-07-20 08:22] VITALS: BP 112/56
[2023-07-20] MEDS: Lithium Carbonate 300 MG CAPSULE 600 MG PO ×2 (08:22→19:55)
[2023-07-20] MEDS: amLODIPine Besylate 10 MG TABLET PO (08:22)
[2023-07-20] MEDS: metFORMIN HCl 1,000 MG TABLET 1000 MG PO ×2 (08:22→19:54)
[2023-07-20] MEDS: bisacodyL 5 MG TABLET.DR PO (09:39)
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
--- NOTE | 2023-07-20 17:48 | PC.NURSE ---
Pt continues to socialize in kitchen with peers, medication compliant, and pleasant. She feels that being here is not for healing, but it's only for stabilization.
[2023-07-20] MEDS: QUEtiapine Fumarate 400 MG TABLET PO (19:54)
[2023-07-20] MEDS: Atorvastatin Calcium 40 MG TABLET PO (19:55)
[2023-07-20] MEDS: traZODone HCL 50 MG TABLET PO (19:55)
[2023-07-20 20:36] VITALS: BP 154/86; PULSE 86; RESP 17; TEMP 37.2; O2SAT 98
[2023-07-21 08:00] VITALS: BP 133/90; PULSE 89; RESP 18; O2SAT 98
[2023-07-21] MEDS: amLODIPine Besylate 10 MG TABLET PO (08:37)
[2023-07-21] MEDS: metFORMIN HCl 1,000 MG TABLET 1000 MG PO ×2 (08:37→20:59)
[2023-07-21] MEDS: Lithium Carbonate 300 MG CAPSULE 600 MG PO ×2 (08:37→20:58)
[2023-07-21] MEDS: bisacodyL 5 MG TABLET.DR PO (08:38)
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
[2023-07-21] MEDS: LORazepam 0.5 MG TABLET PO ×2 (13:37→20:59)
[2023-07-21] MEDS: OLANZapine 5 MG TABLET PO ×2 (13:37→21:00)
[2023-07-21 20:00] VITALS: BP 146/85; PULSE 97; RESP 18; TEMP 37.1; O2SAT 96
[2023-07-21] MEDS: Atorvastatin Calcium 40 MG TABLET PO (20:58)
[2023-07-21] MEDS: Melatonin 3 MG TABLET 6 MG PO (20:59)
[2023-07-21] MEDS: QUEtiapine Fumarate 400 MG TABLET PO (20:59)
[2023-07-21] MEDS: traZODone HCL 50 MG TABLET PO (21:00)
[2023-07-22 08:00] VITALS: BP 142/94; PULSE 97; RESP 18; TEMP 36.9; O2SAT 100
[2023-07-22] MEDS: metFORMIN HCl 1,000 MG TABLET 1000 MG PO ×2 (09:14→21:42)
[2023-07-22] MEDS: Lithium Carbonate 300 MG CAPSULE 600 MG PO ×2 (09:14→21:42)
[2023-07-22 09:19] VITALS: BP 142/94
[2023-07-22] MEDS: amLODIPine Besylate 10 MG TABLET PO (09:19)
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
[2023-07-22] MEDS: bisacodyL 5 MG TABLET.DR PO (13:50)
[2023-07-22] MEDS: LORazepam 0.5 MG TABLET PO (15:42)
[2023-07-22] MEDS: OLANZapine 5 MG TABLET PO (15:42)
[2023-07-22 20:00] VITALS: BP 138/74; PULSE 83; RESP 18; TEMP 36.4; O2SAT 98
[2023-07-22] MEDS: Atorvastatin Calcium 40 MG TABLET PO (21:42)
[2023-07-22] MEDS: traZODone HCL 50 MG TABLET PO (21:42)
[2023-07-22] MEDS: QUEtiapine Fumarate 400 MG TABLET PO (21:42)
[2023-07-22] MEDS: Melatonin 3 MG TABLET 6 MG PO (21:43)
[2023-07-23 08:00] VITALS: BP 129/59; PULSE 86; RESP 18; TEMP 36.4; O2SAT 95
[2023-07-23 09:02] VITALS: BP 129/59
[2023-07-23] MEDS: Lithium Carbonate 300 MG CAPSULE 600 MG PO ×2 (09:02→20:57)
[2023-07-23] MEDS: amLODIPine Besylate 10 MG TABLET PO (09:02)
[2023-07-23] MEDS: metFORMIN HCl 1,000 MG TABLET 1000 MG PO ×2 (09:02→20:56)
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
[2023-07-23] MEDS: bisacodyL 5 MG TABLET.DR PO (10:42)
[2023-07-23] MEDS: LORazepam 0.5 MG TABLET PO (12:11)
[2023-07-23] MEDS: OLANZapine 5 MG TABLET PO (17:10)
[2023-07-23] MEDS: hydrOXYzine HCL 25 MG TABLET PO (17:10)
[2023-07-23 20:30] VITALS: BP 150/90; PULSE 94; RESP 18; TEMP 37; O2SAT 97
[2023-07-23] MEDS: traZODone HCL 50 MG TABLET PO (20:56)
[2023-07-23] MEDS: Atorvastatin Calcium 40 MG TABLET PO (20:57)
[2023-07-23] MEDS: QUEtiapine Fumarate 400 MG TABLET PO (20:57)
[2023-07-24 08:00] VITALS: BP 116/72; PULSE 88; RESP 18; TEMP 36.3; O2SAT 96
[2023-07-24] MEDS: amLODIPine Besylate 10 MG TABLET PO (08:17)
[2023-07-24] MEDS: Lithium Carbonate 300 MG CAPSULE 600 MG PO ×2 (08:17→20:42)
[2023-07-24] MEDS: metFORMIN HCl 1,000 MG TABLET 1000 MG PO ×2 (08:17→20:42)
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
[2023-07-24] MEDS: LORazepam 0.5 MG TABLET PO ×2 (14:07→22:48)
[2023-07-24] MEDS: bisacodyL 5 MG TABLET.DR PO (14:07)
[2023-07-24 20:00] VITALS: BP 136/87; PULSE 96; RESP 18; TEMP 37.2; O2SAT 98
[2023-07-24] MEDS: Atorvastatin Calcium 40 MG TABLET PO (20:42)
[2023-07-24] MEDS: QUEtiapine Fumarate 400 MG TABLET PO (20:42)
[2023-07-24] MEDS: traZODone HCL 50 MG TABLET PO ×2 (22:10→22:48)
[2023-07-25] MEDS: LORazepam 0.5 MG TABLET PO ×2 (05:25→11:26)
[2023-07-25 08:54] VITALS: BP 138/93
[2023-07-25] MEDS: Lithium Carbonate 300 MG CAPSULE 600 MG PO ×2 (08:54→20:51)
[2023-07-25] MEDS: amLODIPine Besylate 10 MG TABLET PO (08:54)
[2023-07-25] MEDS: metFORMIN HCl 1,000 MG TABLET 1000 MG PO ×2 (08:54→20:51)
[2023-07-25 08:56] VITALS: BP 138/93; PULSE 110; RESP 17; TEMP 36.6; O2SAT 99
[2023-07-25] MEDS: Acetaminophen 325 MG TABLET 650 MG PO (08:57)
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
[2023-07-25] MEDS: hydrOXYzine HCL 25 MG TABLET PO (11:27)
--- NOTE | 2023-07-25 15:47 | PC.NURSE ---
Pt continues to remain visible on unit, seen in kitchen writing in her journal. She's been assisted by [facility] Mckoy regarding disposition/outpatient programs etc. will continue on 15 min safety checks and will update with treatment plan as needed.
[2023-07-25 19:59] VITALS: BP 153/91; PULSE 96; RESP 17; TEMP 36.4; O2SAT 98
[2023-07-25] MEDS: Atorvastatin Calcium 40 MG TABLET PO (20:51)
[2023-07-25] MEDS: QUEtiapine Fumarate 400 MG TABLET PO (20:51)
[2023-07-26] MEDS: OLANZapine 5 MG TABLET PO ×2 (01:12→21:13)
[2023-07-26] MEDS: LORazepam 0.5 MG TABLET PO (01:12)
[2023-07-26] MEDS: hydrOXYzine HCL 25 MG TABLET PO (01:12)
[2023-07-26] MEDS: traZODone HCL 50 MG TABLET PO ×2 (01:12→21:13)
[2023-07-26 08:00] VITALS: BP 132/73; PULSE 99; TEMP 2.5; TEMP 36.5; O2SAT 96
[2023-07-26 08:21] VITALS: BP 132/73
[2023-07-26] MEDS: amLODIPine Besylate 10 MG TABLET PO (08:21)
[2023-07-26] MEDS: metFORMIN HCl 1,000 MG TABLET 1000 MG PO ×2 (08:21→21:13)
[2023-07-26] MEDS: Lithium Carbonate 300 MG CAPSULE 600 MG PO ×2 (08:21→21:13)
[2023-07-26 09:52] LABS: Creatinine Clr Calc Pharmacy 105.8; Estimated Glomerular Filt Rate 59
[2023-07-26 20:00] VITALS: BP 155/97; PULSE 93; RESP 18; TEMP 37.3; O2SAT 98
[2023-07-26] MEDS: QUEtiapine Fumarate 400 MG TABLET PO (21:13)
[2023-07-26] MEDS: Melatonin 3 MG TABLET 6 MG PO (21:13)
[2023-07-26] MEDS: Atorvastatin Calcium 40 MG TABLET PO (21:13)
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
[2023-07-27 08:00] VITALS: BP 131/77; PULSE 90; RESP 19; TEMP 36.9; O2SAT 95
[2023-07-27 08:28] VITALS: BP 131/77
[2023-07-27] MEDS: metFORMIN HCl 1,000 MG TABLET 1000 MG PO ×2 (08:28→21:05)
[2023-07-27] MEDS: Lithium Carbonate 300 MG CAPSULE 600 MG PO ×2 (08:28→21:04)
[2023-07-27] MEDS: amLODIPine Besylate 10 MG TABLET PO (08:28)
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
[2023-07-27 20:00] VITALS: BP 143/90; PULSE 94; RESP 17; TEMP 37.1; O2SAT 98
[2023-07-27] MEDS: QUEtiapine Fumarate 100 MG TABLET 500 MG PO (21:04)
[2023-07-27] MEDS: Atorvastatin Calcium 40 MG TABLET PO (21:04)
[2023-07-27] MEDS: Melatonin 3 MG TABLET 6 MG PO (21:05)
[2023-07-27] MEDS: LORazepam 0.5 MG TABLET PO (21:05)
[2023-07-27] MEDS: traZODone HCL 50 MG TABLET PO ×2 (21:05→22:58)
[2023-07-27] MEDS: OLANZapine 5 MG TABLET PO (22:58)
[2023-07-27] MEDS: hydrOXYzine HCL 25 MG TABLET PO (22:58)
[2023-07-28 08:00] VITALS: BP 147/97; PULSE 101; RESP 18; TEMP 36.8; O2SAT 99
[2023-07-28] MEDS: metFORMIN HCl 1,000 MG TABLET 1000 MG PO ×2 (09:01→21:23)
[2023-07-28] MEDS: amLODIPine Besylate 10 MG TABLET PO (09:01)
[2023-07-28] MEDS: Lithium Carbonate 300 MG CAPSULE 600 MG PO ×2 (09:01→21:23)
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
[2023-07-28 20:00] VITALS: BP 139/93; PULSE 91; RESP 20; TEMP 37; O2SAT 99
[2023-07-28] MEDS: QUEtiapine Fumarate 100 MG TABLET 500 MG PO (21:23)
[2023-07-28] MEDS: Atorvastatin Calcium 40 MG TABLET PO (21:23)
[2023-07-29 08:00] VITALS: BP 157/119; PULSE 87; RESP 20; TEMP 36.4; O2SAT 97
[2023-07-29 08:08] VITALS: BP 157/119
[2023-07-29] MEDS: amLODIPine Besylate 10 MG TABLET PO (08:08)
[2023-07-29] MEDS: metFORMIN HCl 1,000 MG TABLET 1000 MG PO ×2 (08:08→20:02)
[2023-07-29] MEDS: Lithium Carbonate 300 MG CAPSULE 600 MG PO ×2 (08:08→20:02)
--- NOTE | 2023-07-29 17:08 | PC.NURSE ---
Pt reports she is highly interested in learning about her DID and asked for a printout of information about the disorder. Info about DID from [employer] printed out and given to her as a resource. She shared about her different personalities and how they each come out evidenced by her penmanship. She was overheard talking to a peer who reports having some similar experiences. Continuing to offer her support as needed while here on the unit.
[2023-07-29 20:00] VITALS: BP 144/94; PULSE 89; RESP 20; TEMP 36.3; O2SAT 98
[2023-07-29] MEDS: QUEtiapine Fumarate 100 MG TABLET 500 MG PO (20:02)
[2023-07-29] MEDS: Atorvastatin Calcium 40 MG TABLET PO (20:02)
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
[2023-07-30 08:00] VITALS: BP 120/84; PULSE 92; RESP 18; TEMP 36.4; O2SAT 97
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
[2023-07-30 11:24] VITALS: BP 133/95
[2023-07-30] MEDS: metFORMIN HCl 1,000 MG TABLET 1000 MG PO ×2 (11:24→20:58)
[2023-07-30] MEDS: Lithium Carbonate 300 MG CAPSULE 600 MG PO ×2 (11:24→20:58)
[2023-07-30] MEDS: amLODIPine Besylate 10 MG TABLET PO (11:24)
[2023-07-30 11:29] VITALS: BP 133/95; PULSE 112
[2023-07-30] MEDS: OLANZapine 5 MG TABLET PO (18:09)
[2023-07-30 20:00] VITALS: BP 132/89; PULSE 90; RESP 18; TEMP 36.8; O2SAT 98
[2023-07-30] MEDS: QUEtiapine Fumarate 100 MG TABLET 500 MG PO (20:58)
[2023-07-30] MEDS: traZODone HCL 50 MG TABLET PO (21:00)
[2023-07-30] MEDS: Atorvastatin Calcium 40 MG TABLET PO (21:00)
[2023-07-31] MEDS: LORazepam 0.5 MG TABLET PO ×2 (02:50→17:11)
[2023-07-31] MEDS: Melatonin 3 MG TABLET 6 MG PO ×2 (02:50→21:09)
[2023-07-31] MEDS: traZODone HCL 50 MG TABLET PO ×4 (02:50→23:21)
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
[2023-07-31 08:00] VITALS: BP 148/87; PULSE 92; RESP 16; TEMP 36.6; O2SAT 98
[2023-07-31] MEDS: Lithium Carbonate 300 MG CAPSULE 600 MG PO ×2 (08:51→21:08)
[2023-07-31] MEDS: amLODIPine Besylate 10 MG TABLET PO (08:51)
[2023-07-31] MEDS: metFORMIN HCl 1,000 MG TABLET 1000 MG PO ×2 (08:51→21:08)
[2023-07-31] MEDS: OLANZapine 5 MG TABLET PO ×2 (17:11→23:21)
[2023-07-31 20:00] VITALS: BP 129/86; PULSE 91; RESP 20; TEMP 37.2; O2SAT 98
[2023-07-31] MEDS: Atorvastatin Calcium 40 MG TABLET PO (21:08)
[2023-07-31] MEDS: QUEtiapine Fumarate 100 MG TABLET 500 MG PO (21:09)
[2023-07-31] MEDS: hydrOXYzine HCL 25 MG TABLET PO (21:09)
[2023-08-01] MEDS: OLANZapine 5 MG TABLET PO ×3 (03:16→16:08)
[2023-08-01] MEDS: hydrOXYzine HCL 25 MG TABLET PO (03:16)
[2023-08-01 08:00] VITALS: BP 151/90; PULSE 97; RESP 20; TEMP 36.5; O2SAT 96
[2023-08-01 09:40] VITALS: BP 131/82; PULSE 102
[2023-08-01 09:41] VITALS: BP 131/82
[2023-08-01] MEDS: metFORMIN HCl 1,000 MG TABLET 1000 MG PO ×2 (09:41→21:00)
[2023-08-01] MEDS: amLODIPine Besylate 10 MG TABLET PO (09:41)
[2023-08-01] MEDS: Lithium Carbonate 300 MG CAPSULE 600 MG PO ×2 (09:41→21:00)
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
[2023-08-01] MEDS: LORazepam 0.5 MG TABLET PO (16:08)
[2023-08-01 20:00] VITALS: BP 133/71; PULSE 95; RESP 14; TEMP 37; O2SAT 98
[2023-08-01] MEDS: QUEtiapine Fumarate 100 MG TABLET 500 MG PO (20:59)
[2023-08-01] MEDS: Atorvastatin Calcium 40 MG TABLET PO (21:00)
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
[2023-08-02 07:55] VITALS: BP 140/103; PULSE 110; RESP 20; TEMP 36.4; O2SAT 97
[2023-08-02 08:09] VITALS: BP 140/103
[2023-08-02] MEDS: Lithium Carbonate 300 MG CAPSULE 600 MG PO ×2 (08:09→21:31)
[2023-08-02] MEDS: OLANZapine 5 MG TABLET PO ×2 (08:09→16:18)
[2023-08-02] MEDS: amLODIPine Besylate 10 MG TABLET PO (08:09)
[2023-08-02] MEDS: metFORMIN HCl 1,000 MG TABLET 1000 MG PO ×2 (08:09→21:31)
[2023-08-02 09:47] VITALS: BP 121/80; PULSE 111
[2023-08-02] MEDS: Acetaminophen 325 MG TABLET 650 MG PO (09:47)
[2023-08-02 09:51] LABS: Creatinine Clr Calc Pharmacy 107.9; Estimated Glomerular Filt Rate > 60
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
[2023-08-02] MEDS: hydrOXYzine HCL 25 MG TABLET PO (15:37)
[2023-08-02] MEDS: LORazepam 0.5 MG TABLET PO (15:37)
[2023-08-02 20:00] VITALS: BP 139/97; PULSE 94; RESP 16; TEMP 36.9; O2SAT 97
[2023-08-02] MEDS: QUEtiapine Fumarate 100 MG TABLET 500 MG PO (21:30)
[2023-08-02] MEDS: Atorvastatin Calcium 40 MG TABLET PO (21:31)
[2023-08-03 08:22] VITALS: BP 122/76; PULSE 97; RESP 16; TEMP 37.1; O2SAT 97
[2023-08-03] MEDS: metFORMIN HCl 1,000 MG TABLET 1000 MG PO ×2 (08:55→21:42)
[2023-08-03] MEDS: Lithium Carbonate 300 MG CAPSULE 600 MG PO ×2 (08:55→21:41)
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
[2023-08-03 11:17] VITALS: BP 136/82
[2023-08-03] MEDS: amLODIPine Besylate 10 MG TABLET PO (11:17)
--- NOTE | 2023-08-03 13:47 | PC.NURSE ---
pt refused lab work and angrily stormed away.
[2023-08-03 20:00] VITALS: BP 166/96; PULSE 96; RESP 18; TEMP 36.6; O2SAT 97
[2023-08-03] MEDS: LORazepam 0.5 MG TABLET PO (21:42)
[2023-08-03] MEDS: Atorvastatin Calcium 40 MG TABLET PO (21:42)
[2023-08-03] MEDS: QUEtiapine Fumarate 100 MG TABLET 500 MG PO (21:42)
[2023-08-03] MEDS: OLANZapine 5 MG TABLET PO (21:42)
[2023-08-03] MEDS: traZODone HCL 50 MG TABLET PO (21:42)
[2023-08-04 08:00] VITALS: BP 134/64; PULSE 89; RESP 16; TEMP 36.6; O2SAT 97
[2023-08-04] MEDS: Lithium Carbonate 300 MG CAPSULE 600 MG PO ×2 (08:44→20:56)
[2023-08-04] MEDS: metFORMIN HCl 1,000 MG TABLET 1000 MG PO ×2 (08:44→20:56)
[2023-08-04] MEDS: amLODIPine Besylate 10 MG TABLET PO (08:44)
[2023-08-04] MEDS: LORazepam 0.5 MG TABLET PO (08:44)
[2023-08-04] MEDS: OLANZapine 5 MG TABLET PO ×2 (08:45→20:56)
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
[2023-08-04 20:00] VITALS: BP 161/89; PULSE 96; RESP 18; TEMP 36.7; O2SAT 97
[2023-08-04] MEDS: QUEtiapine Fumarate 300 MG TABLET 600 MG PO (20:56)
[2023-08-04] MEDS: traZODone HCL 50 MG TABLET PO (20:56)
[2023-08-04] MEDS: Atorvastatin Calcium 40 MG TABLET PO (20:56)
[2023-08-05] MEDS: LORazepam 0.5 MG TABLET PO (00:53)
[2023-08-05] MEDS: Acetaminophen 325 MG TABLET 650 MG PO (00:53)
[2023-08-05 08:00] VITALS: BP 118/68; PULSE 92; RESP 18; TEMP 36.8; O2SAT 98
[2023-08-05] MEDS: metFORMIN HCl 1,000 MG TABLET 1000 MG PO ×2 (08:48→20:51)
[2023-08-05] MEDS: amLODIPine Besylate 10 MG TABLET PO (08:48)
[2023-08-05] MEDS: Lithium Carbonate 300 MG CAPSULE 600 MG PO ×2 (08:48→20:51)
[2023-08-05] MEDS: OLANZapine 5 MG TABLET PO (08:48)
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
[2023-08-05 20:00] VITALS: BP 177/87; PULSE 102; RESP 18; TEMP 36.6; O2SAT 97
[2023-08-05] MEDS: QUEtiapine Fumarate 300 MG TABLET 600 MG PO (20:51)
[2023-08-05] MEDS: Atorvastatin Calcium 40 MG TABLET PO (20:51)
[2023-08-06 08:00] VITALS: BP 138/82; PULSE 84; RESP 16; TEMP 36.6; O2SAT 99
[2023-08-06] MEDS: metFORMIN HCl 1,000 MG TABLET 1000 MG PO ×2 (09:00→21:13)
[2023-08-06] MEDS: amLODIPine Besylate 10 MG TABLET PO (09:00)
[2023-08-06] MEDS: Lithium Carbonate 300 MG CAPSULE 600 MG PO ×2 (09:00→21:13)
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
[2023-08-06 20:00] VITALS: BP 145/86; PULSE 99; RESP 19; TEMP 36.8; O2SAT 98
[2023-08-06] MEDS: Atorvastatin Calcium 40 MG TABLET PO (21:13)
[2023-08-06] MEDS: QUEtiapine Fumarate 300 MG TABLET 600 MG PO (21:13)
[2023-08-07 08:00] VITALS: BP 130/76; PULSE 92; RESP 16; TEMP 36.6; O2SAT 98
[2023-08-07] MEDS: Lithium Carbonate 300 MG CAPSULE 600 MG PO ×2 (10:01→20:40)
[2023-08-07] MEDS: amLODIPine Besylate 10 MG TABLET PO (10:01)
[2023-08-07] MEDS: metFORMIN HCl 1,000 MG TABLET 1000 MG PO ×2 (10:01→20:40)
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
[2023-08-07] MEDS: LORazepam 0.5 MG TABLET PO (15:57)
[2023-08-07 20:00] VITALS: BP 167/75; PULSE 106; RESP 20; TEMP 37.2; O2SAT 97
[2023-08-07] MEDS: Atorvastatin Calcium 40 MG TABLET PO (20:40)
[2023-08-07] MEDS: Melatonin 3 MG TABLET 6 MG PO (20:40)
[2023-08-07] MEDS: QUEtiapine Fumarate 300 MG TABLET 600 MG PO (20:40)
[2023-08-07] MEDS: traZODone HCL 50 MG TABLET PO (20:40)
[2023-08-08 08:16] VITALS: BP 121/85; PULSE 96; RESP 16; TEMP 36.6; O2SAT 96
[2023-08-08 09:33] VITALS: BP 121/85
[2023-08-08] MEDS: amLODIPine Besylate 10 MG TABLET PO (09:33)
[2023-08-08] MEDS: metFORMIN HCl 1,000 MG TABLET 1000 MG PO ×2 (09:33→22:05)
[2023-08-08] MEDS: Lithium Carbonate 300 MG CAPSULE 600 MG PO ×2 (09:33→22:04)
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
[2023-08-08 20:00] VITALS: BP 162/97; PULSE 97; RESP 17; TEMP 36.7; O2SAT 97
[2023-08-08] MEDS: Melatonin 3 MG TABLET 6 MG PO (22:05)
[2023-08-08] MEDS: QUEtiapine Fumarate 300 MG TABLET 600 MG PO (22:05)
[2023-08-08] MEDS: traZODone HCL 50 MG TABLET PO (22:05)
[2023-08-08] MEDS: Atorvastatin Calcium 40 MG TABLET PO (22:05)
[2023-08-09 08:00] VITALS: BP 113/87; PULSE 93; RESP 18; TEMP 36.6; O2SAT 95
[2023-08-09 09:59] VITALS: BP 131/87
[2023-08-09] MEDS: amLODIPine Besylate 10 MG TABLET PO (09:59)
[2023-08-09] MEDS: metFORMIN HCl 1,000 MG TABLET 1000 MG PO ×2 (09:59→21:28)
[2023-08-09] MEDS: Lithium Carbonate 300 MG CAPSULE 600 MG PO ×2 (09:59→21:28)
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
[2023-08-09 20:00] VITALS: BP 124/77; PULSE 94; RESP 16; TEMP 36.1; O2SAT 98
[2023-08-09] MEDS: QUEtiapine Fumarate 300 MG TABLET 600 MG PO (21:28)
[2023-08-09] MEDS: Milk of Magnesia 30 ML ORAL.SUSP PO (21:28)
[2023-08-09] MEDS: Atorvastatin Calcium 40 MG TABLET PO (21:28)
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
[2023-08-10 09:36] VITALS: BP 134/89; PULSE 91; RESP 16; TEMP 36.5; O2SAT 97
[2023-08-10] MEDS: amLODIPine Besylate 10 MG TABLET PO (09:36)
[2023-08-10] MEDS: Lithium Carbonate 300 MG CAPSULE 600 MG PO ×2 (09:36→21:49)
[2023-08-10] MEDS: metFORMIN HCl 1,000 MG TABLET 1000 MG PO ×2 (09:36→21:49)
[2023-08-10] MEDS: Calcium Carbonate 750 MG TAB.CHEW PO ×2 (16:56→21:01)
[2023-08-10 21:45] VITALS: BP 153/104; PULSE 95; RESP 18; TEMP 36.6; O2SAT 96
[2023-08-10] MEDS: QUEtiapine Fumarate 300 MG TABLET 600 MG PO (21:48)
[2023-08-10] MEDS: Atorvastatin Calcium 40 MG TABLET PO (21:49)
[2023-08-10] MEDS: hydrOXYzine HCL 25 MG TABLET PO (22:36)
[2023-08-10] MEDS: LORazepam 0.5 MG TABLET PO (22:36)
--- NOTE | 2023-08-10 22:38 | PC.NURSE ---
Martir given Ativan PO prn and Atarax PO prn for elevated anxiety.
--- NOTE | 2023-08-10 22:40 | PC.NURSE ---
Martir was offered Dermacerin cream for her legs at . Patient wanted to know if she could have a pair of ann stockings so that the cream would not stain her pants. Will put to .
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
[2023-08-11] MEDS: Lithium Carbonate 300 MG CAPSULE 600 MG PO ×2 (10:18→20:38)
[2023-08-11] MEDS: amLODIPine Besylate 5 MG TABLET PO (10:18)
[2023-08-11] MEDS: metFORMIN HCl 1,000 MG TABLET 1000 MG PO ×2 (10:19→20:39)
[2023-08-11] MEDS: Mineral Oil/Petrolatum,White 106 GM Tube 1 APPL TOPICAL (11:01)
[2023-08-11] MEDS: LORazepam 0.5 MG TABLET PO (19:17)
[2023-08-11 20:30] VITALS: BP 138/74; PULSE 88; RESP 18; TEMP 36.4; O2SAT 100
[2023-08-11] MEDS: Atorvastatin Calcium 40 MG TABLET PO (20:38)
[2023-08-11] MEDS: traZODone HCL 50 MG TABLET PO (20:38)
[2023-08-11] MEDS: Melatonin 3 MG TABLET 6 MG PO (20:38)
[2023-08-11] MEDS: hydrOXYzine HCL 25 MG TABLET PO (20:39)
[2023-08-11] MEDS: QUEtiapine Fumarate 300 MG TABLET 600 MG PO (20:39)
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
[2023-08-12 10:45] VITALS: BP 138/84; PULSE 88; RESP 16; TEMP 36.6; O2SAT 97
[2023-08-12] MEDS: Lithium Carbonate 300 MG CAPSULE 600 MG PO ×2 (11:00→20:45)
[2023-08-12] MEDS: metFORMIN HCl 1,000 MG TABLET 1000 MG PO ×2 (11:01→20:44)
[2023-08-12] MEDS: amLODIPine Besylate 5 MG TABLET PO (11:03)
[2023-08-12] MEDS: Mineral Oil/Petrolatum,White 106 GM Tube 1 APPL TOPICAL (11:04)
--- NOTE | 2023-08-12 18:15 | PC.NURSE ---
Pt submitted a Three Day Notice on Monday08/12/2023 up on Monday08/16/2023.
[2023-08-12 20:00] VITALS: BP 140/105; PULSE 104; RESP 18; TEMP 36.8; O2SAT 97
[2023-08-12] MEDS: QUEtiapine Fumarate 300 MG TABLET 600 MG PO (20:44)
[2023-08-12] MEDS: traZODone HCL 50 MG TABLET PO (20:45)
[2023-08-12] MEDS: Melatonin 3 MG TABLET 6 MG PO (20:45)
[2023-08-12] MEDS: Atorvastatin Calcium 40 MG TABLET PO (20:46)
[2023-08-12] MEDS: Milk of Magnesia 30 ML ORAL.SUSP PO (20:47)
[2023-08-13 08:00] VITALS: BP 134/86; PULSE 89; RESP 16; TEMP 36.6; O2SAT 95
[2023-08-13] MEDS: amLODIPine Besylate 5 MG TABLET PO (09:29)
[2023-08-13] MEDS: metFORMIN HCl 1,000 MG TABLET 1000 MG PO ×2 (09:29→22:01)
[2023-08-13] MEDS: hydrOXYzine HCL 25 MG TABLET PO ×2 (09:29→18:15)
[2023-08-13] MEDS: Lithium Carbonate 300 MG CAPSULE 600 MG PO ×2 (09:30→22:02)
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
[2023-08-13] MEDS: LORazepam 0.5 MG TABLET PO (14:16)
[2023-08-13] MEDS: bisacodyL 5 MG TABLET.DR PO (14:16)
[2023-08-13] MEDS: Milk of Magnesia 30 ML ORAL.SUSP PO (18:14)
[2023-08-13] MEDS: OLANZapine 5 MG TABLET PO (18:15)
[2023-08-13 20:00] VITALS: BP 136/88; PULSE 96; RESP 16; TEMP 36.4; O2SAT 97
[2023-08-13] MEDS: QUEtiapine Fumarate 300 MG TABLET 600 MG PO (22:01)
[2023-08-13] MEDS: Atorvastatin Calcium 40 MG TABLET PO (22:02)
[2023-08-14 08:00] VITALS: BP 133/72; PULSE 91; RESP 18; TEMP 36.6; O2SAT 94
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
[2023-08-14 09:51] VITALS: BP 133/72
[2023-08-14] MEDS: metFORMIN HCl 1,000 MG TABLET 1000 MG PO ×2 (09:51→22:00)
[2023-08-14] MEDS: Lithium Carbonate 300 MG CAPSULE 600 MG PO ×2 (09:51→22:00)
[2023-08-14] MEDS: amLODIPine Besylate 5 MG TABLET PO (09:51)
[2023-08-14] MEDS: Milk of Magnesia 30 ML ORAL.SUSP PO (13:02)
[2023-08-14] MEDS: bisacodyL 5 MG TABLET.DR PO (19:22)
[2023-08-14 20:00] VITALS: BP 152/95; PULSE 90; RESP 18; TEMP 36.6; O2SAT 97
[2023-08-14] MEDS: LORazepam 0.5 MG TABLET PO (22:00)
[2023-08-14] MEDS: OLANZapine 5 MG TABLET PO (22:00)
[2023-08-14] MEDS: traZODone HCL 50 MG TABLET PO (22:00)
[2023-08-14] MEDS: Atorvastatin Calcium 40 MG TABLET PO (22:00)
[2023-08-14] MEDS: QUEtiapine Fumarate 300 MG TABLET 600 MG PO (22:01)
[2023-08-15 08:00] VITALS: BP 145/94; PULSE 114; RESP 16; TEMP 36.6; O2SAT 99
[2023-08-15] MEDS: OLANZapine 5 MG TABLET PO (09:44)
[2023-08-15] MEDS: bisacodyL 5 MG TABLET.DR PO (09:44)
[2023-08-15] MEDS: metFORMIN HCl 1,000 MG TABLET 1000 MG PO ×2 (09:44→20:49)
[2023-08-15] MEDS: hydrOXYzine HCL 25 MG TABLET PO (09:44)
[2023-08-15] MEDS: Lithium Carbonate 300 MG CAPSULE 600 MG PO ×2 (09:44→20:48)
[2023-08-15] MEDS: amLODIPine Besylate 5 MG TABLET PO (09:46)
[2023-08-15] MEDS: LORazepam 0.5 MG TABLET PO (13:13)
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
[2023-08-15] MEDS: Sodium Phosphate,Mono-Dibasic 133 ML ENEMA PR (18:49)
[2023-08-15] MEDS: traZODone HCL 50 MG TABLET PO (20:48)
[2023-08-15] MEDS: Atorvastatin Calcium 40 MG TABLET PO (20:48)
[2023-08-15] MEDS: QUEtiapine Fumarate 300 MG TABLET 600 MG PO (20:49)
[2023-08-16 07:30] VITALS: BP 121/59; PULSE 91; RESP 16; TEMP 36.7; O2SAT 95
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
[2023-08-16] MEDS: Lithium Carbonate 300 MG CAPSULE 600 MG PO (09:16)
[2023-08-16] MEDS: metFORMIN HCl 1,000 MG TABLET 1000 MG PO (09:16)
[2023-08-16 09:18] VITALS: BP 121/59
[2023-08-16] MEDS: hydrOXYzine HCL 25 MG TABLET PO (09:45)
[2023-08-16] MEDS: LORazepam 0.5 MG TABLET PO (09:45)
== END 2023-08-16 11:30 | disposition home or self-care (01) | DRG 885 ==
LOC: HO.ED 07-13 08:07 → HO.PM5 07-13 12:59
PROVIDERS: Nurse Practitioner Family; Admitting Provider Psychiatry & Neurology Psychiatry; Emergency Provider Internal Medicine; PCP Physician Assistant; Referring Provider Physician Assistant; Visit Provider Psychiatry & Neurology Psychiatry
DX: F25.0 Schizoaffective disorder, bipolar type (principal); R45.851 Suicidal ideations; F43.12 Post-traumatic stress disorder, chronic; I10 Essential (primary) hypertension; E78.5 Hyperlipidemia, unspecified; E11.9 Type 2 diabetes mellitus without complications; Z20.822 Contact with and (suspected) exposure to COVID-19; Z79.84 Long term (current) use of oral hypoglycemic drugs; Z79.899 Other long term (current) drug therapy
CPT/HCPCS: 36415; 80053; 80061; 80178; 80179; 80307; 81001; 82565; 83036; 84443; 84702; 85025; 87635; 93005; 99285; S9485

== ENCOUNTER → 2023-07-13 08:35 | Outpatient (BNV) | payer OTHER, SELFPAY | PROVIDERS: Emergency Provider Internal Medicine; PCP Physician Assistant; Visit Provider Internal Medicine Cardiovascular Disease | DX: I44.0 Atrioventricular block, first degree (principal) | CPT/HCPCS: 93010 ==

== ENCOUNTER → 2023-07-13 12:54 | Outpatient (BNV) | payer OTHER, SELFPAY | PROVIDERS: Admitting Provider Psychiatry & Neurology Psychiatry; Emergency Provider Internal Medicine; PCP Physician Assistant; Visit Provider Psychiatry & Neurology Psychiatry | DX: F25.0 Schizoaffective disorder, bipolar type (principal); F43.12 Post-traumatic stress disorder, chronic | CPT/HCPCS: 90792; 99231; 99232; 99239 ==

== ENCOUNTER 2023-08-16 14:00 | Emergency (ER) | payer OTHER, MEDICARE, SELFPAY ==
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
[2023-08-16 14:11] VITALS: BP 146/98; BP 160/97; PULSE 91; PULSE 98; RESP 18; TEMP 36.3; O2SAT 96; O2SAT 98; BMI 38.0
[2023-08-16 14:50] LABS: UPreg QC Valid YES; Urine Pregnancy NEGATIVE (NEGATIVE)
[2023-08-16 14:57] LABS: Amphetamine Screen Urine Not Detected (Not Detect); Barbiturates, Urine Not Detected (Not Detect); Benzodiazepines Screen Urine Not Detected (Not Detect); Buprenorphine Scr Not Detected (Not Detect); Cannabinoid Screen Urine Not Detected (Not Detect); Cocaine Screen Urine Not Detected (Not Detect); Fentanyl, urine Not Detected (Not Detect); Methadone Screen, Urine Not Detected (Not Detect); Opiate Screen Urine Not Detected (Not Detect); Oxycodone Screen Urine Not Detected (Not Detect); Phencyclidine Screen Urine Not Detected (Not Detect)
[2023-08-16 14:58] LABS: Appearance Urine Cloudy; Color Urine Yellow; Glucose Urine UA 500 mg/dL (Negative); Leukocyte Esterase Urine Negative (Negative); Nitrite Urine Negative (Negative); PH 6.5 (5.0-9.0); UMIC TRIGGER UACC YES; Urine Blood Negative (Negative); Urine Ketones Negative (Negative); Urine Protein 300 (3+) mg/dL (Neg-Trace)
[2023-08-16 15:02] LABS: Bacteria Urine 2+ (None Seen); Hyaline Casts Urine 0-2 /LPF (0-2); RBC Urine 0-2 /HPF (0-2); WBC Urine 0-5 /HPF (0-5)
[2023-08-16] MEDS: Acetaminophen 325 MG TABLET 650 MG PO (16:41)
--- NOTE | 2023-08-16 16:44 | PC.NURSE ---
pt c/o back pain from riding in the ambulance, provider was notified, tylenol was order and administered per order. upon administration pt stated this crap isnt going to do anything for back pain pt took the medication and went back to sleep.
[2023-08-16 16:50] LABS: MANUAL DIFF FLAG NO
[2023-08-16 16:52] LABS: Basophils Absolute Auto 0.1 X10*3/uL (0.0-0.2); Basophils Percent Auto 0.9 % (0-2); Eosinophils Absolute Auto 0.9 X10*3/uL (0.0-0.4); Eosinophils Percent Auto 7.6 % (0-4); Hematocrit 39.9 % (37.0-47.0); Hemoglobin 13.5 g/dl (12.0-16.0); Imm Gran Abs Auto 0.04 X10*3/uL (0.00-0.03); Imm Gran Pct Auto 0.3 % (0.0-0.4); Lymphocytes Absolute Auto 2.5 X10*3/uL (1.2-4.9); Lymphocytes Percent Auto 20.9 % (20-40); Mean Corpuscular HGB Conc 33.8 g/dl (31.0-35.0); Mean Corpuscular Hemoglobin 28.4 pg (27.0-33.0); Mean Corpuscular Volume 83.8 fL (80.0-98.0); Monocytes Absolute Auto 0.8 X10*3/uL (0.1-1.2); Monocytes Percent Auto 6.7 % (2-11); Neutrophils Absolute Auto 7.5 x10*3/uL (2.0-8.3); Neutrophils Percent Auto 63.6 % (45-73); Platelet Count 322 X10*3/uL (160-400); Red Blood Count 4.76 X10*6/uL (4.20-5.50); Red Cell Distribution Width 12.4 % (11.0-16.0); White Blood Count 11.7 X10*3/uL (4.8-10.8)
[2023-08-16 17:08] LABS: Alanine Aminotransferase 34 U/L (0-31); Albumin Level 3.5 g/dL (3.5-5.0); Alkaline Phosphatase 75 U/L (39-117); Anion Gap 14 (12-20); Aspartate Amino Transferase 36 U/L (5-31); Bilirubin Total 0.2 mg/dL (0.0-1.0); Blood Urea Nitrogen 12 mg/dL (9-16); Calcium 9.5 mg/dL (8.4-10.2); Carbon Dioxide 24 mmol/L (22-29); Chloride 104 mmol/L (96-108); Creatinine Clr Calc Pharmacy 93.6; Estimated Glomerular Filt Rate 51; Ethanol < 10 mg/dL; Glucose Random 207 mg/dL (60-115); Lipase 56 U/L (8-78); Potassium 3.9 mmol/L (3.3-5.1); Salicylate < 5.0 mg/dL (15-30); Sodium 138 mmol/L (135-145); Total Protein 6.5 g/dL (6.5-8.0)
[2023-08-16] MEDS: metFORMIN HCl 1,000 MG TABLET 1000 MG PO (22:22)
[2023-08-16] MEDS: Atorvastatin Calcium 40 MG TABLET PO (22:22)
[2023-08-16] MEDS: Lithium Carbonate 300 MG CAPSULE 600 MG PO (22:23)
[2023-08-16] MEDS: QUEtiapine Fumarate 300 MG TABLET 600 MG PO (22:23)
[2023-08-16 22:25] VITALS: BP 134/95; PULSE 87; RESP 16; TEMP 36.3; O2SAT 100
--- NOTE | 2023-08-16 23:22 | MHC.CARE ---
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 It was reported that co response was called to the DTA office after Martir presented and reported command auditory hallucinations and informed staff that she has been previously diagnosed with DID. Per [facility] she denied suicidal or homicidal ideation, plan, or intent and did not meet criteria for a section 12 at that time however informed the co response clinician that she felt more safe at the ED. Per [facility], it was determined that the patient was going to be transported to [facility] ED and indicated that she was not on a section 12 at that time and was unsure how transport changed to [facility] ED. She denied that a full evaluation was completed or a disposition was recommended due to it being co response who responded and indicated that patient could call [facility] Crisis for support as needed moving forward.
[2023-08-17] MEDS: Acetaminophen 325 MG TABLET 975 MG PO (00:48)
[2023-08-17 06:22] VITALS: RESP 16
[2023-08-17 09:33] VITALS: BP 144/102; PULSE 94; RESP 18; TEMP 36.5; O2SAT 98
[2023-08-17] MEDS: amLODIPine Besylate 5 MG TABLET PO (09:39)
[2023-08-17] MEDS: Lithium Carbonate 300 MG CAPSULE 600 MG PO ×2 (09:39→20:39)
[2023-08-17] MEDS: metFORMIN HCl 1,000 MG TABLET 1000 MG PO ×2 (09:39→20:39)
[2023-08-17] MEDS: LORazepam 0.5 MG TABLET PO (13:29)
--- NOTE | 2023-08-17 15:21 | PC.NURSE ---
patient awaiting dispo at this time, met with psychiatry. resting quietly and watching television. medicated per the JUN.
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
--- NOTE | 2023-08-17 18:21 | PC.NURSE ---
plan to meet with care team in the morning to discuss discharge. ?transfer to living room to make arrangements w/ shelters.
[2023-08-17] MEDS: hydrOXYzine HCL 25 MG TABLET PO (18:29)
--- NOTE | 2023-08-17 19:13 | PC.NURSE ---
patient appears to remain relaxed, euthymic with periodic disruptive outbursts [facility] for letting you down appears in no acute distress.
[2023-08-17] MEDS: Atorvastatin Calcium 40 MG TABLET PO (20:39)
[2023-08-17] MEDS: QUEtiapine Fumarate 300 MG TABLET 600 MG PO (20:39)
[2023-08-17] MEDS: OLANZapine 5 MG TABLET PO (23:08)
[2023-08-18 02:00] VITALS: BP 138/97; PULSE 82; RESP 16; TEMP 37.2; O2SAT 98
--- NOTE | 2023-08-18 07:12 | PC.NURSE ---
Assumed care of patient at 0645. Patient is observed sleeping in her bed. No signs of distress, breathing is even and unlabored. Will continue plan of care.
[2023-08-18 07:33] VITALS: BP 151/97; PULSE 98; RESP 16; TEMP 36.9; O2SAT 97
--- NOTE | 2023-08-18 07:42 | MHC.CARE ---
discharge plan was conveyed to t/w as discharge smoking tobacco packing machine hand to the Living Room, with patient having agreed to it. Patient does not appear to be in agreement and is escalated. She will likely require escort out by security.
[2023-08-18 07:48] VITALS: BP 151/97; PULSE 98; RESP 16; TEMP 36.9; O2SAT 97
== END 2023-08-18 08:01 | disposition home or self-care (01) ==
PROVIDERS: Physician Assistant Medical; Emergency Provider Emergency Medicine
DX: F25.0 Schizoaffective disorder, bipolar type (principal); F31.81 Bipolar II disorder; E11.9 Type 2 diabetes mellitus without complications; I10 Essential (primary) hypertension; Z79.899 Other long term (current) drug therapy
CPT/HCPCS: 36415; 80053; 80179; 80307; 81001; 81003; 81025; 83690; 83735; 85025; 99285; S9485